=== PATIENT | female | born 1960 | race Caucasian/White ===

== ENCOUNTER 2019-01-14 10:14 | Inpatient (IN) ==
--- NOTE | 2018-12-13 14:03 | Anesthesiology Consultation ---
Date of Service December 13, 2018 Assessment & Plan (1) Encounter for pre-operative examination: Chart Review Chart Review: Acceptable Risk for Surgery and Patient seen in Pre Admission Testing Consults Requested none Teaching & Discussion Pre-Anesthesia Teaching/Discussion Notes: Instructed NPO after midnight before surgery, except medications with 15 cc of water. Medication instructions provided according to the PAT guidelines. History Surgery Operation Date: 01/14/19 13:30 Proposed Procedures p Left Total Knee Arthroplasty - Yossi Fraga DO Height/Weight Height: 5 ft 2 in Weight: 83.4 kg Allergies Allergy/AdvReac Type Severity Reaction Status Date / Time No Known Allergies Allergy Mild Verified 12/07/18 11:27 Medications Home Medications Medication Instructions Recorded Confirmed Last Taken citalopram [Celexa] 10 mg PO HS 06/28/18 12/07/18 06/30/18 18:00 folic acid 1 mg PO QPM 06/28/18 12/07/18 06/30/18 18:00 gabapentin 300 mg PO TID 06/28/18 12/07/18 06/30/18 13:00 hydrocodone-acetaminophen 1 - 2 tab PO Q6H PRN 06/28/18 12/07/18 06/30/18 13:00 lorazepam 1 mg PO Q6 PRN 06/28/18 12/07/18 06/29/18 magnesium hydroxide [Milk of 30 ml PO DAILY PRN 06/28/18 12/07/18 06/29/18 Magnesia] naproxen sodium [Aleve] 220 mg PO BID PRN 06/28/18 12/07/18 Unknown certolizumab pegol [Cimzia] 1 dose SUBCUT DIRECTED 12/07/18 12/07/18 Unknown Past Medical History Medical History Anxiety Chronic back pain with radiculopathy Degenerative disc disease Osteoarthritis Rheumatoid arthritis Sleep apnea CPAP Spinal stenosis Past Surgical History Surgical History History of appendectomy History of bilateral tubal ligation History of colonoscopy History of dilatation and curettage X2 History of esophagogastroduodenoscopy (EGD) History of lumbar fusion 02/28/16-- L4-L5 MAC #3, ETT #7.0 with Grade 1 view. History of meniscectomy of left knee History of tooth extraction WISDOM TEETH History of total abdominal hysterectomy and bilateral salpingo-oophorectomy Past Anesthesia History No Hx of Anesthesia Complications and No Family Hx of Anesthesia Complications History of PONV No Motion Sickness Screening History of Motion Sickness: No Social History Smoking Status: Current every day smoker tobacco type: cigarettes Smoking cigarettes per day: 1/2 ppd x 40 years Do You Dip or Chew Tobacco: No Hx Alcohol Use: No Hx Substance Use: No substance use type: does not use Exercise / Class Metabolic Activity II 4-5 Yardwork/Stairs/Walk up hill (Rides stationary bike 15 minutes and walks 10 minutes on treadmill every other day. Able to climb stairs one at a time. Denies CP or SOB. ) Review of Systems Patient denies chest pain, shortness of breath, dyspnea on exertion, reflux, cough, wheezing, palpitations. +Joint pain (knees) Physical Exam Vital Signs BP: 115/75 P: 59 R: 18 T: 98.6 SPO2: 97% on RA Constitutional + obese ENMT Thyromental Distance: > or= 3.5 Finger Breadths (4) Mallampati Class: II Neck normal visual inspection and trachea midline; neck extension not limited Respiratory normal respiratory effort Auscultation: lungs clear to auscultation bilaterally Cardiovascular Rate/Rhythm: regular rate and regular rhythm Heart Sounds: no murmur Vessels: no carotid bruit Neurologic moves all extremities Psychiatric Orientation: alert and oriented x 3 Testing Electrocardiogram Date: 06/16/18 Findings: + SB @ (58) When compared with ECG from 03/05/16, ventricular rate has decreased by 32 bpm. Chest X-Ray Date: 06/16/18 Findings: + NAD Stress Test Date: 11/04/17 Type: DSE Resting EF: 55-59% Stress echo is negative for inducible ischemia. Adequate and appropriate HR and BP response to the dobutamine/atropine stress protocol. Baseline EKG was essentially normal. The stress EKG response showed no evidence of ischemia. LV wall thickness is mildly increased (concentric). No significant valvular disease is present. Cervical Spine Date: 12/13/18 FINDINGS: The cervical spine is visualized from C1 through the superior endplate of T1. There is no fracture. No subluxation. Moderate degenerative disc change C5-C7. No evidence for positional subluxation. IMPRESSION: Degenerative change. No evidence for positional subluxation Laboratory Results 12/13/18 14:41 12/13/18 14:41 Blood Type A Positive 12/13/18 14:41 Antibody Screen NEGATIVE 12/13/18 14:41 PT 10.1 Seconds (9.0-12.0) 12/13/18 14:41 INR 1.0 (0.9-1.1) 12/13/18 14:41 APTT 26.1 Seconds (21.0-31.0) 12/13/18 14:41
--- NOTE | 2018-12-13 14:28 | PAT Medication Instructions ---
Medication Instructions Date of Service December 13, 2018 Home Medications citalopram [Celexa] 10 mg PO HS folic acid 1 mg PO QPM gabapentin 300 mg PO TID hydrocodone-acetaminophen 1 - 2 tab PO Q6H NEEDED lorazepam 1 mg PO Q6 NEEDED magnesium hydroxide [Milk of Magnesia] 30 ml PO DAILY NEEDED naproxen sodium [Aleve] 220 mg PO BID NEEDED certolizumab pegol [Cimzia] 1 dose SUBCUT DIRECTED ASK your surgeon for instructions naproxen sodium [Aleve] 220 mg PO BID NEEDED ASK your prescriber and surgeon certolizumab pegol [Cimzia] 1 dose SUBCUT DIRECTED DO NOT take the morning of surgery magnesium hydroxide [Milk of Magnesia] 30 ml PO DAILY NEEDED Take morning of surgery With a small sip of water, OTHERWISE NOTHING TO EAT OR DRINK AFTER MIDNIGHT: hydrocodone-acetaminophen 1 - 2 tab PO Q6H NEEDED (Stop 4 hours befre surgery) lorazepam 1 mg PO Q6 NEEDED gabapentin 300 mg PO TID Take evening before surgery magnesium hydroxide [Milk of Magnesia] 30 ml PO DAILY NEEDED hydrocodone-acetaminophen 1 - 2 tab PO Q6H NEEDED lorazepam 1 mg PO Q6 NEEDED folic acid 1 mg PO QPM gabapentin 300 mg PO TID citalopram [Celexa] 10 mg PO HS Other Notes If you have any questions please call us at [phone] or [phone] or [phone] or [phone]
--- NOTE | 2018-12-13 14:54 | XRay Report ---
XR cervical spine 2 or 3V HISTORY: Pain Lateral, Neutral, Flexion, extension) COMPARISON: None. FINDINGS: The cervical spine is visualized from C1 through the superior endplate of T1. There is no f racture. No subluxation. Moderate degenerative disc change C5-C7. No evidence for positional subluxa tion. IMPRESSION: Degenerative change. No evidence for positional subluxation The above report was generated using voice recognition software. It may contain grammatical, syntax or spelling errors. Electronically signed by: Jordan Parisi M.D. 12/13/2018 2:53 PM
[2018-12-13 16:12] LABS: Basophils # (auto) 0.04 K/uL (0-0.2); Basophils % (auto) 0.4 %; Eosinophils # (auto) 0.14 K/uL (0-0.5); Eosinophils % (auto) 1.5 %; Hematocrit (blood only) 38.2 % (37-47); Hemoglobin 12.7 g/dL (12.0-16.0); Immature Granulocytes # (auto) 0.02 K/uL (0.00-0.02); Immature Granulocytes % (auto) 0.2 %; Lymphocytes # (auto) 2.98 K/uL (1.2-3.4); Lymphocytes % (auto) 32.7 %; Mean Corpuscular Hgb Conc 33.2 g/dL (32-36); Mean Corpuscular Volume 99.5 fL (80-100); Monocytes # (auto) 0.89 K/uL (0.11-0.59); Monocytes % (auto) 9.8 %; Neutrophils # (auto) 5.04 K/uL (1.4-6.5); Neutrophils % (auto) 55.4 %; Platelet Count 293 K/uL (130-400); RDW Coefficient of Variation 13.3 % (11.5-14.5); RDW Standard Deviation 47.5 fL (36.4-46.3); Red Blood Count 3.84 M/uL (4.2-5.4); White Blood Count 9.11 K/uL (4.8-10.8)
[2018-12-13 16:14] LABS: BUN Creatinine Ratio 17.9 (10-20); Creatinine Clr Calc Pharmacy 71.5 ml/min; Est GFR (African American) 86.9; Potassium 4.3 mmol/L (3.5-5.1)
[2018-12-13 16:20] LABS: Partial Thromboplastin Time 26.1 Seconds (21.0-31.0); Prothrombin Time 10.1 Seconds (9.0-12.0)
--- NOTE | 2019-01-12 07:35 | History & Physical Report ---
Date of Service January 12, 2019 Assessment & Plan (1) Osteoarthritis of left knee: We will proceed with a left total knee arthroplasty. Postoperatively she will be started on aspirin for DVT prophylaxis. She will be kept overnight at the hospital for postoperative medical management. She plans to use [facility] physical therapy upon discharge. Present on Admission?: Yes History of Present Illness Chief Complaint: Primary osteoarthritis of the right knee Primary Care Provider: Willychristel Ashley Ybarra is a pleasant 58-year-old female who is been dealing with chronic increasing left knee pain. I did an arthroscopy of her left knee recently which showed extensive arthritis. Unfortunately she still having a lot of pain. She is failing conservative treatment. She has elected to proceed with a left total knee arthroplasty. Allergies Allergy/AdvReac Type Severity Reaction Status Date / Time No Known Allergies Allergy Mild Verified 12/07/18 11:27 Home Medications Home Medications Medication Instructions Recorded Confirmed Type citalopram [Celexa] 10 mg PO HS 06/28/18 12/07/18 History folic acid 1 mg PO QPM 06/28/18 12/07/18 History gabapentin 300 mg PO TID 06/28/18 12/07/18 History hydrocodone-acetaminophen 1 - 2 tab PO Q6H PRN 06/28/18 12/07/18 History lorazepam 1 mg PO Q6 PRN 06/28/18 12/07/18 History magnesium hydroxide [Milk of 30 ml PO DAILY PRN 06/28/18 12/07/18 History Magnesia] naproxen sodium [Aleve] 220 mg PO BID PRN 06/28/18 12/07/18 History certolizumab pegol [Cimzia] 1 dose SUBCUT DIRECTED 12/07/18 12/07/18 History Past Med/Surg History Medical History Anxiety Chronic back pain with radiculopathy Degenerative disc disease Osteoarthritis Rheumatoid arthritis Sleep apnea CPAP Spinal stenosis Surgical History History of appendectomy History of bilateral tubal ligation History of colonoscopy History of dilatation and curettage X2 History of esophagogastroduodenoscopy (EGD) History of lumbar fusion 02/28/16-- L4-L5 MAC #3, ETT #7.0 with Grade 1 view. History of meniscectomy of left knee History of tooth extraction WISDOM TEETH History of total abdominal hysterectomy and bilateral salpingo-oophorectomy Social History Preferred Language: Lao Communication Ability: Effective Beliefs That Will Affect Care: None Current Living Situation: Spouse Other Information That Helps Us Care for You: No Feels Safe at Home: Yes Safety Concerns: Feels Safe At This Time Smoking Status: Current every day smoker Hx Alcohol Use: No Hx Substance Use: No Review of Systems All systems reviewed & are unremarkable except as noted in HPI & below Physical Exam Constitutional: WD/WN, vitals as above Eyes: PERRL, conjunctivae normal, anicteric sclerae ENMT: external ear and nose normal, oropharynx normal Neck: trachea midline, no thyromegaly Respiratory: normal respiratory effort Cardiovascular: RRR, no murmur, no edema Gastrointestinal (Abdomen): normal bowel sounds, soft, nontender, no hepatosplenomegaly Musculoskeletal: On physical examination of the right knee there is a trace effusion. There is near full range of motion and no evidence of instability. There is significant tenderness palpation along the medial and lateral joint lines and over the distal femoral condyles. Psychiatric: A+Ox3, euthymic affect Results & Data Diagnostic Findings Radiographs of the right knee demonstrate advanced osteoarthritis with joint space narrowing osteophyte formation and ceng-hm-oayn articulation.
[~2019-01-14 10:14] MED LIST: ACETAMINOPHEN 500 MG TAB PO SCH; BUPIVACAINE 0.5 % 5 MG/1 ML PF 10ML VIAL ONE; CEFAZOLIN 2000MG 2,000 MG/15 ML SYR IV SCH; FAMOTIDINE 20 MG TAB PO SCH; GABAPENTIN 300 MG x 2 PO SCH; LR 500ML BOLUS, THEN 15ML/HR IV SCH; LR 60ML/HR IV SCH; ROPIVACAINE 0.5% 5 MG/ML 30 ML VIAL ONE; ROPIVACAINE 0.5% HCL/PF 150 MG, BUPIVACAINE 0.5% MPF 30 ML, EPINEPHrine 30MG/30ML (OR U... INFIL SCH; TRANEXAMIC ACID 1,000 MG **IV Intra-op IV SCH; TRANEXAMIC ACID 1,000 MG **IV Pre-op IV SCH
[2019-01-14] MEDS ORDERED: MIDAZOLAM HCL 1 MG/ML 2ML VIAL ONE ×2 (11:40)
[2019-01-14] MEDS ORDERED: fentaNYL citrate 100 MCG/2 ML VIAL ONE (11:44)
[2019-01-14] MEDS ORDERED: LIDOCAINE HCL 2% 2 ML VIAL/AMP(20MG/ML) INFIL ONE (11:47)
[2019-01-14] MEDS ORDERED: PROPOFOL IV EMULSION 10 MG/ML 20 ML VIAL IV ONE (11:48)
[2019-01-14] MEDS ORDERED: ONDANSETRON INJ 2 MG/ML 2 ML VIAL ONE (11:48)
--- NOTE | 2019-01-14 11:53 | History & Physical Bridge Note ---
Date of Service January 14, 2019 History & Physical Bridge Note I have examined the patient, reviewed the History & Physical and in the interval since the performance of the History & Physical I have noted the following changes of clinical significance: no changes noted
[2019-01-14] MEDS ORDERED: ORTHO JOINT ANESTHETIC ONE (12:16)
[2019-01-14] MEDS ORDERED: POVIDONE-IODINE OP SOLN 30 ML BTL ONE (12:16)
[2019-01-14] MEDS ORDERED: ONDANSETRON INJ 2 MG/ML 2 ML VIAL IV PRN ×2 (12:52→16:11)
[2019-01-14] MEDS ORDERED: PHENYLEPHRINE 100MCG/ML 5ML SYR IV PRN (12:52)
[2019-01-14] MEDS ORDERED: ATROPINE SULFATE 0.1 MG/ML 10ML SYR IV PRN (12:52)
[2019-01-14] MEDS ORDERED: ePHEDrine sulfate 50 MG/ML AMP IV PRN (12:52)
[2019-01-14] MEDS ORDERED: HYDROmorphone INJ 1 MG/ML SYRINGE IV PRN (12:52)
[2019-01-14] MEDS ORDERED: KETOROLAC 30 MG/ML VIAL IV PRN (12:52)
[2019-01-14] MEDS ORDERED: PHENYLEPHRINE 100MCG/ML 5ML SYR ONE (13:56)
[2019-01-14] MEDS ORDERED: ePHEDrine sulfate 50 MG/ML AMP ONE (13:56)
--- NOTE | 2019-01-14 14:40 | Operative Report ---
Post Operative Report Pre & Post Diagnosis Operation Date: 01/14/19 12:50 Pre-Op Diagnosis: Osteoarthritis of left knee Post-Op Diagnosis: Osteoarthritis of left knee Procedure Operation Date: 01/14/19 12:50 Actual Procedures p Left Total Knee Arthroplasty(Left) - Yossi Fraga DO Surgeon Yossi Fraga DO [employer] Mesh Yossi Higgins PAC Estimated Blood Loss 5 Findings Consistent with Post-Op Diagnosis Specimens Left femoral and tibial bone Complications none Disposition Disposition: Recovery Room Indications Amada is a pleasant 58-year-old female who presented to my office with chronic increasing left knee pain. I did a knee arthroscopy on her in the past and documented significant arthritis. After failing extensive conservative treatment, she elected to proceed with a left total knee arthroplasty. Description of Procedure Implants used: I used a [employer] total knee arthroplasty system with a size 60 femur, 63 tibia, 28 patella, and a size 10 PS polyethylene bearing. All components were cemented in place with Palacos G cement. The patient arrived [facility] for the above procedure. There were seen in the preoperative holding area and the operative extremity was identified and signed. There were given a preoperative antibiotic, a spinal anesthetic and an adductor nerve block. There were taken back to the operating room and laid on the table in supine position. There were given basic sedation. The operative knee was then prepped and draped in sterile fashion. A timeout was done, and the patient and the operative extremity was properly identified. A midline incision was made directly over the patella. Dissection was taken down to the extensor mechanism. A subvastus arthrotomy was used. The medial retinaculum was released and the fat pad was mostly left intact. The knee was flexed and the ACL, PCL, and meniscus were removed. A drill was sent down the center of the femoral canal followed by an intramedullary anneliese. Off that anneliese a distal femoral cutting block was placed. 9 mm was resected off the distal femur at 5 of valgus. A posterior referencing AP sizing guide was then placed on the distal femur. The femur measured to be a size 60. 2 drill holes were placed in 3 of external rotation. A 4-in-1 cutting block was then impacted into place. Anterior posterior and chamfer cuts were then made. The posterior stabilizing box guide was then impacted into place and the box was resected for the posterior stabilizing component. The proximal tibia was then exposed. A drill was sent down the center of the tibial canal followed by an intramedullary anneliese. Off that anneliese a proximal tibial resection guide was placed. The proximal tibia was then resected. The tibia measured to be a size 63. The tibial plate was then placed in the appropriate rotation and the tibia was punched. The posterior aspect of the knee was then opened up and any additional meniscus fragments and osteophytes were removed. Trial components were then placed. I used a size 10 PS polyethylene insert. The knee was brought through a full range of motion and felt to be stable. The patella was then everted and 8 mm was resected off the posterior aspect of the patella. The patella measured to be a size 28. 3 peg holes were then drilled. A trial patella was placed. The knee was once again brought through a full range of motion and felt to be stable. Trial components were then removed. The surrounding soft tissues were injected with 100 cc of an orthopedic pain control cocktail. All components were then cemented into place with Palacos G cement. The final polyethylene insert was then snapped into place and the anterior bar was locked. Once cement was dry the tourniquet was deflated. Hemostasis was obtained. A dilute betadyne lavage was then done for 3 minutes. The joint was then irrigated with normal saline solution. The subvastus arthrotomy was then closed with #1 Vicryl suture. The skin was closed with 2-0 Vicryl, 3-0V lock suture, and koby. A soft compressive dressing was placed. The patient was then transferred to a hospital bed and taken to the postanesthesia care unit in stable condition. They tolerated the procedure well. I attest to the content of the Intraoperative Record and any orders documented therein. Any exceptions are noted below.
--- NOTE | 2019-01-14 15:18 | XRay Report ---
TWO VIEWS LEFT KNEE CLINICAL HISTORY: Postoperative examination. FINDINGS: AP and crosstable lateral portable views of the left knee are obtained. A left knee arthrop lasty is in near anatomic alignment. There has been undersurface remodeling of the patella. No acute fracture is seen. There are expected postoperative changes around the knee including skin clips, soft tissue edema, and subcutaneous gas. IMPRESSION: Expected postoperative changes status post left knee arthroplasty. No acute fracture is s een. Electronically signed by: Sebas Blair M.D. 01/14/2019 3:17 PM
--- NOTE | 2019-01-14 15:35 | Anesthesiology Progress Note ---
Date of Service January 14, 2019 Anesthesia Post Procedure Vital Signs Vital Signs: Temp Pulse Pulse Resp BP Pulse Ox 01/14/19 15:04 36.2 C L 74 20 101/64 94 01/14/19 11:01 36.9 C 61 20 104/61 94 Pain Intensity Left Knee: Pain Intensity: 0 Notes Mental Status: alert / awake / arousable Patient Amnestic to Procedure: Yes Nausea / Vomiting: adequately controlled Pain: adequately controlled Airway Patency, RR, SpO2: stable & adequate BP & HR: stable & adequate Hydration State: stable & adequate Anesthetic Complications: no major complications apparent and Pt Satisfied with anesthetic care
[2019-01-14] MEDS ORDERED: LORazepam 1 MG TAB PO PRN (16:11)
[2019-01-14] MEDS ORDERED: NALOXONE HCL 0.4 MG/1 ML VIAL/CARP IV PRN (16:11)
[2019-01-14] MEDS ORDERED: CERTOLIZUMAB PEGOL SQ SCH (16:11)
[2019-01-14] MEDS ORDERED: METOCLOPRAMIDE HCL INJ 5 MG/ML 2 ML VIAL IV PRN (16:11)
[2019-01-14] MEDS ORDERED: HYDROmorphone INJ 0.5 MG/0.5 ML SYR IV PRN (16:11)
[2019-01-14] MEDS ORDERED: BISACODYL 10 MG SUPP PR PRN (16:11)
[2019-01-14] MEDS ORDERED: SODIUM CHLORIDE 0.9% 1000ML 1,000 ML IV SCH (16:11)
[2019-01-14] MEDS ORDERED: MAGNESIUM HYDROXIDE SUSP 30 ML UDC PO PRN ×2 (16:11)
[2019-01-14] MEDS: KETOROLAC 30 MG/ML VIAL IV SCH ×2 (17:07→22:36)
[2019-01-14] MEDS: OXYCODONE HCL IR 5 MG TAB (IMMEDIATE RELEASE) PO PRN (19:54)
[2019-01-14] MEDS ORDERED: CITALOPRAM 20 MG TAB PO SCH (21:00)
[2019-01-14] MEDS ORDERED: SENNA 8.6 MG TAB PO SCH (21:00)
[2019-01-14] MEDS ORDERED: FOLIC ACID 1 MG TAB PO SCH (21:00)
[2019-01-14] MEDS: CEFAZOLIN 2000MG 2,000 MG/15 ML SYR IV SCH (21:16)
[2019-01-14] MEDS: ASPIRIN 81 MG ECTAB PO SCH (21:17)
[2019-01-14] MEDS: DOCUSATE SODIUM 100 MG CAP PO SCH (21:17)
[2019-01-14] MEDS: GABAPENTIN 300 MG CAP PO SCH (21:17)
[2019-01-14] MEDS: ACETAMINOPHEN 500 MG TAB PO SCH (21:18)
[2019-01-15] MEDS: KETOROLAC 30 MG/ML VIAL IV SCH (05:34)
[2019-01-15] MEDS: CEFAZOLIN 2000MG 2,000 MG/15 ML SYR IV SCH (05:35)
[2019-01-15] MEDS: ACETAMINOPHEN 500 MG TAB PO SCH (05:35)
[2019-01-15 06:10] LABS: Hemoglobin 11.8 g/dL (12.0-16.0); Mean Corpuscular Hgb Conc 33.7 g/dL (32-36); Mean Corpuscular Volume 97.5 fL (80-100); Mean Platelet Volume 8.9 fL (7.4-10.4); Platelet Count 254 K/uL (130-400); RDW Standard Deviation 46.3 fL (36.4-46.3); Red Blood Count 3.59 M/uL (4.2-5.4); White Blood Count 18.99 K/uL (4.8-10.8)
[2019-01-15 06:38] LABS: Calcium 8.9 mg/dl (8.5-10.1); Creatinine Clr Calc Pharmacy 68.9 ml/min; Est GFR (African American) 83.4; Est GFR (Non-African American) 71.9; Potassium 4.8 mmol/L (3.5-5.1)
--- NOTE | 2019-01-15 08:20 | Orthopedic Progress Note ---
Date of Service January 15, 2019 Assessment & Plan (1) Osteoarthritis of left knee: Overall she is doing very well. She is not having much pain in the knee. She will be seen this morning by physical therapy for ambulation. She is on oxycodone for pain control. She is on aspirin for DVT prophylaxis. She can be discharged home later this morning with [facility] therapy. She will follow-up with orthopedics in 2 weeks. Present on Admission?: Yes Subjective Amada was seen and examined at bedside this morning. Overall she is doing very well. She is not having much pain in the knee. She is already been up and ambulating. She has no complaints. Physical Exam Vital Signs (Past 24 Hours): Last Vital Signs Temp 36.6 C 01/15/19 02:58 Pulse 54 L 01/15/19 02:58 Resp 16 01/15/19 02:58 BP 100/64 01/15/19 02:58 Pulse Ox 98 01/15/19 02:58 Musculoskeletal: On physical examination of the left knee, the dressing is clean and dry. Her leg lengths are equal. She is active dorsiflexion plantarflexion of her left ankle. Sensation is intact. Results & Data Laboratory Results H & H 12/13/18 01/15/19 Range/Units 14:41 05:29 Hgb 12.7 11.8 L (12.0-16.0) g/dL Hct 38.2 35.0 L (37-47) % Coagulation 12/13/18 Range/Units 14:41 INR 1.0 (0.9-1.1) Diagnostic Findings Postoperative x-rays of the left knee show the prosthesis to be in anatomic alignment without any evidence of fracture dislocation or loosening
--- NOTE | 2019-01-15 08:22 | Discharge Summary ---
Date of Service January 15, 2019 Admission HPI Per Admitting Provider Amada is a pleasant 58-year-old female who is been dealing with chronic increasing left knee pain. I did an arthroscopy of her left knee recently which showed extensive arthritis. Unfortunately she still having a lot of pain. She is failing conservative treatment. She has elected to proceed with a left total knee arthroplasty. Specialty Data Orthopedic H & H 12/13/18 01/15/19 Range/Units 14:41 05:29 Hgb 12.7 11.8 L (12.0-16.0) g/dL Hct 38.2 35.0 L (37-47) % Coagulation 12/13/18 Range/Units 14:41 INR 1.0 (0.9-1.1) Discharge Data Consultations 01/14/19 16:11 Consult Case Management - Discharge Planning Routine Procedures Performed Operation Date: 01/14/19 12:50 Actual Procedures p Left Total Knee Arthroplasty(Left) - Yossi Fraga DO Hospital Course (1) Osteoarthritis of left knee: On January 14, 2019 Amada arrived at [facility] and underwent a left total knee arthroplasty without complication. She had a spinal anesthetic and a left abductor nerve block. Postoperatively she was started on aspirin for DVT prophylaxis and discharged to general orthopedic floors. Her hospital course is uneventful. On postop day #1 her H&H was stable and her pain was well controlled. She was able to participate well with physical therapy. She was then discharged to home with [facility]. She will follow-up with orthopedics in 2 weeks. Discharge Instructions Home Medications Medication Instructions Recorded Confirmed citalopram [Celexa] 10 mg PO HS 06/28/18 01/14/19 folic acid 1 mg PO QPM 06/28/18 01/14/19 gabapentin 300 mg PO TID 06/28/18 01/14/19 hydrocodone-acetaminophen 1 - 2 tab PO Q6H PRN 06/28/18 01/14/19 lorazepam 1 mg PO Q6 PRN 06/28/18 01/14/19 magnesium hydroxide [Milk of 30 ml PO DAILY PRN 06/28/18 01/14/19 Magnesia] naproxen sodium [Aleve] 220 mg PO BID PRN 06/28/18 01/14/19 certolizumab pegol [Cimzia] 1 dose SUBCUT DIRECTED 12/07/18 01/14/19 Previous Rx's Medication Instructions Recorded aspirin [Ecotrin Low Strength] 81 mg PO BID #84 tab 01/15/19 oxycodone 5 - 10 mg PO Q4H PRN #40 tab 01/15/19
[2019-01-15] MEDS ORDERED: MULTIVITAMIN TAB PO SCH (09:00)
[2019-01-15] MEDS: OXYCODONE HCL IR 5 MG TAB (IMMEDIATE RELEASE) PO PRN (09:22)
[2019-01-15] MEDS: ASPIRIN 81 MG ECTAB PO SCH (09:23)
[2019-01-15] MEDS: DOCUSATE SODIUM 100 MG CAP PO SCH (09:23)
[2019-01-15] MEDS: GABAPENTIN 300 MG CAP PO SCH (09:24)
--- NOTE | 2019-01-15 12:56 | Anesthesiology Progress Note ---
Date of Service January 15, 2019 Anesthesia Post Procedure Vital Signs Vital Signs: Temp Pulse Pulse Pulse Resp BP BP 01/15/19 10:40 01/15/19 09:58 36.4 C L 63 18 105/74 01/15/19 08:15 36.4 C L 63 18 105/74 01/15/19 02:58 36.6 C 54 L 16 01/14/19 22:50 36.5 C 65 16 103/66 01/14/19 19:10 36.9 C 85 16 01/14/19 18:06 37.3 C 85 16 01/14/19 17:02 36.4 C L 85 16 01/14/19 16:30 36.8 C 82 20 01/14/19 16:00 36.7 C 73 18 01/14/19 15:45 74 22 102/53 L 01/14/19 15:41 78 23 111/64 01/14/19 15:40 76 22 01/14/19 15:39 36.8 C 01/14/19 15:35 78 22 111/64 01/14/19 15:30 71 20 102/57 L 01/14/19 15:25 75 13 102/61 01/14/19 15:20 78 19 102/60 01/14/19 15:15 75 21 106/62 01/14/19 15:10 81 16 103/58 L 01/14/19 15:05 69 15 100/59 L 01/14/19 15:04 36.2 C L 76 74 22 101/64 BP Pulse Ox 01/15/19 10:40 97 01/15/19 09:58 100/64 94 01/15/19 08:15 94 01/15/19 02:58 100/64 98 01/14/19 22:50 92/53 L 97 01/14/19 19:10 108/67 96 01/14/19 18:06 107/66 95 01/14/19 17:02 107/66 92 01/14/19 16:30 111/72 94 01/14/19 16:00 100/63 95 01/14/19 15:45 96 01/14/19 15:41 96 01/14/19 15:40 96 01/14/19 15:39 97 01/14/19 15:35 95 01/14/19 15:30 96 01/14/19 15:25 96 01/14/19 15:20 96 01/14/19 15:15 94 01/14/19 15:10 91 01/14/19 15:05 95 01/14/19 15:04 101/64 91 Pain Intensity Left Knee: Pain Intensity: 3 Notes Mental Status: alert / awake / arousable and participated in evaluation Patient Amnestic to Procedure: Yes Nausea / Vomiting: adequately controlled Pain: adequately controlled Airway Patency, RR, SpO2: stable & adequate BP & HR: stable & adequate Hydration State: stable & adequate Neuraxial Anesthesia: was administered and sensory block resolved Anesthetic Complications: no major complications apparent and Pt Satisfied with anesthetic care
--- OUTSIDE RECORDS SUMMARY | 2019-01-31 13:48 | External Medical Summary | Continuity of Care Document ---
:1960 Author Name Hannah Alvarado, Provider Address Unavailable Unavailable , Care Team Providers Name Role Phone Unavailable Unavailable Unavailable JANETH MARCOS Unavailable Unavailable Unavailable Unavailable Unavailable Problems S/P total knee arthroplasty (V43.65) (Z96.659) Lumbosacral radiculopathy (724.4) (M54.17) Cough (786.2) (R05) Pulmonary nodule (793.11) (R91.1) Obstructive sleep apnea (327.23) (G47.33) Pneumonia (486) (J18.9) Moderate obstructive sleep apnea (327.23) (G47.33) Snoring (786.09) (R06.83) Dyslipidemia (272.4) (E78.5) Vitamin D deficiency (268.9) (E55.9) Arthritis, rheumatoid (714.0) (M06.9) Non-toxic uninodular goiter (241.0) (E04.1) Myositis (729.1) (M60.9) Myalgia (729.1) (M79.10) Statin intolerance (995.27) (Z78.9) Obesity (278.00) (E66.9) Dyslipidemia (272.4) (E78.5) Tobacco use (305.1) (Z72.0) Allergies and Adverse Reactions No Known Drug Allergies (Allergy) Medications Aspirin 81 MG Oral Tablet Delayed Release; TAKE 1 TABLET TWI CE DAILY. , M.D. Refills: 0 ALPRAZolam 0.5 MG Oral Tablet; TAKE 1 TABLET 3 TIMES DAILY A S NEEDED. , M.D. Refills: 0 Benzonatate 100 MG Oral Capsule; TAKE 1 TO 2 CAPSULES 3 TIMES A DAILY NEEDED , M.D. Refills: 0 Vitamin D 49654 UNIT CAPS; TAKE 1 CAPSULE WEEKLY. , M.D. Refills: 0 Oscal 500/200 D-3 500-200 MG-UNIT Oral Tablet; TAKE 1 TABLET twice daily , M.D. Refills: 0 Methotrexate 2.5 MG Oral Tablet; TAKE 7 TABLETS PER WEEK. , M.D. Refills: 0 Folic Acid 1 MG Oral Tablet; TAKE TABLET daily , M.D. Refills: 0 Procedures History of knee replacement Status: Comp leted 14-Jan-2019 0:00 Immunizations Immunizations not documented Social History - Smoking Status Current every day smoker Plan of Treatment Planned Observations Planned Goals not documented Results No Known Results Results not documented Encounters Appointment; Remedios Vasquez III, M.D. 23-Apr-2017 16:00 Encounter Diagnosis: Problem not documented
== END 2019-01-15 10:55 | disposition home or self-care (01) | DRG 470 ==
LOC: ASU 10:14 → 3E 15:06

== ENCOUNTER 2022-07-23 08:11 | Inpatient (IN) ==
--- NOTE | 2022-07-23 08:42 | Emergency Department Note ---
History of Present Illness General Chief complaint: Back Injury/Pain Stated complaint: BACK PAIN Time Seen by Provider: 07/23/22 08:42 Source: patient, family ( who is at the bedside) and old records reviewed (I have reviewed the records from EMS) Mode of arrival: ambulatory Limitations: no limitations History of Present Illness Maximum Pain Intensity: 9 This patient is 61-year-old female has history of chronic back issues, comes in complaining of back pain. This started since yesterday and she says this feels different than her typical back pain that sharp and it starts in her low back on the right side and wraps around into her groin and down her leg. It hurts significantly she tries to stand and she says is excruciating she cannot get up and go to the bathroom. No injury or overuse. She does use a TENS unit hydrocodone and Lyrica normally for her pain at home. She is followed by the pain clinic and Dr. Mejia gave her an injection last in June. She is done nothing that she knows of to aggravate her back. She did have back surgery 2015 and has had some nerve damage since then where she gets intermittent numbness weakness but nothing new lately. Denies dysuria hematuria no change in bowel or bladder function or incontinence. No blood or melena in her stool. No fever or chills. She does have chronic constipation. No abdominal pain no chest pain or shortness of breath. no sick contacts or exposure to COVID. no cough. Home Medications Medication Instructions Recorded Confirmed Type lorazepam 1 mg tablet 1 mg PO Q6H PRN Anxiety 06/28/18 07/03/22 History magnesium hydroxide 400 mg/5 mL 30 ml PO DAILY PRN Stomach Upset 06/28/18 07/03/22 History oral suspension (Milk of Magnesia) celecoxib 200 mg capsule (Celebrex) 200 mg PO DAILY PRN Pain 11/02/19 07/03/22 History cholecalciferol (vit D3) 5,500 1 tab PO QAM 07/17/21 07/03/22 History unit-vit K2 200 mcg tablet cyanocobalamin (vitamin B-12) 1,000 mcg PO QAM 07/17/21 07/03/22 History 1,000 mcg tablet (Vitamin B-12) pregabalin 100 mg capsule (Lyrica) 100 mg PO TID 07/17/21 07/03/22 History upadacitinib 15 mg tablet,extended 15 mg PO HS 07/17/21 07/03/22 History release 24 hr (Rinvoq) zinc 50 mg tablet 50 mg PO QAM 07/17/21 07/03/22 History hydrocodone 10 mg-acetaminophen 1 tab PO Q6H PRN 12/16/21 07/03/22 History 325 mg tablet albuterol sulfate 90 mcg/actuation 2 puff inhalation QID PRN 03/18/22 07/03/22 History aerosol inhaler fluticasone propionate 50 2 spray intranasal DAILY 03/18/22 07/03/22 History mcg/actuation nasal spray,suspension (Allergy Relief (fluticasone)) semaglutide 1 mg/dose (4 mg/3 mL) 1 mg (0.75 mL) subcut WK 4 weeks 07/03/22 07/03/22 Rx subcutaneous pen injector (Ozempic) #21 mL Allergies Allergy/AdvReac Type Severity Reaction Status Date / Time No Known Allergies Allergy Mild Verified 07/03/22 14:11 Past Med/Surg History Medical History (Updated 07/23/22 @ 15:11 by Yossi Terry MD) Anxiety Chronic back pain with radiculopathy Degenerative disc disease DM2 (diabetes mellitus, type 2) History of COVID-19 Dx Spring 2019 > symptoms at time of sinus headache, loss of taste and smell > symptoms resolved Obesity Osteoarthritis Rheumatoid arthritis Sleep apnea CPAP (compliant) Spinal stenosis Surgical History History of appendectomy History of bilateral tubal ligation History of colonoscopy History of dilatation and curettage X2 History of esophagogastroduodenoscopy (EGD) History of lumbar fusion L4-L5 (02/28/16): MAC #3, ETT #7.0 with Grade 1 view History of meniscectomy of left knee History of tooth extraction WTE History of total abdominal hysterectomy and bilateral salpingo-oophorectomy History of total left knee replacement Left TKA (01/14/19): SAB + PNB at [facility] Family History Grandmother Family history of diabetes mellitus PATERNAL Grandfather Family hx of colon cancer PATERNAL Grandfather (Paternal) Colorectal cancer Father Myocardial infarction Denies family history of Ovarian cancer Prostate cancer Breast cancer Social History Smoking Status: Current every day smoker Tobacco Type: Cigarettes Age Started Using Tobacco: 15; packs per day: 0; Cigarettes Per Day: 5-10; Second Hand Exposure: Yes (self); Hx Alcohol Use: No Hx Substance Use: No Preferred Language: Maori Communication Ability: Effective Visual Impairment: No Limitations Hearing Ability: Normal Rental Car Deliverer Required: No Beliefs That Will Affect Care: None marital status: Current Living Situation: Spouse current occupational status: retired How many Children do You have: 2 Feels Safe at Home: Yes Childhood Exposure to Second-Hand Smoke: Yes Dental Care, Regularly: Yes Physical Activity Frequency: Does not Exercise Seatbelt Use: always Sunscreen Use: Yes Assistive Devices: CPAP, Glasses and Walker Review of Systems A total of 10 systems reviewed and were otherwise negative Physical Exam Vital Signs Vital Signs - 24 hr 07/23/22 08:17 07/23/22 08:17 07/23/22 09:47 Temperature 37.1 C Temperature Source Oral Pulse Rate 73 66 Pulse Rate [Apical] 67 Pulse Rate from SpO2 Sensor Pulse Rhythm Regular Pulse Rhythm [Apical] Pulse Strength Normal Pulse Strength [Apical] Respiratory Rate 18 16 20 Respiratory Effort / Characteristics Non-Labored Respiratory Depth Normal Respiratory Pattern Regular Blood Pressure 146/88 H Blood Pressure [Left Arm] 146/88 H Blood Pressure Mean 107 Blood Pressure Mean [Left Arm] 107 Blood Pressure Position Lying Blood Pressure Position [Left Arm] Lying Pulse Oximetry 91 90 91 Oxygen Delivery Method Room Air Room Air Room Air Oxygen Flow Rate Sepsis Recent Fever Within 48 Hours No Sepsis New/Unexplained Change in Mental Status N/A Sepsis Action Taken by Nursing No Action Required 07/23/22 08:19 07/23/22 08:30 07/23/22 08:30 Temperature Temperature Source Pulse Rate 72 67 Pulse Rate [Apical] Pulse Rate from SpO2 Sensor 72 67 Pulse Rhythm Pulse Rhythm [Apical] Pulse Strength Pulse Strength [Apical] Respiratory Rate 19 21 Respiratory Effort / Characteristics Respiratory Depth Respiratory Pattern Blood Pressure 145/80 H Blood Pressure [Left Arm] Blood Pressure Mean 101 Blood Pressure Mean [Left Arm] Blood Pressure Position Blood Pressure Position [Left Arm] Pulse Oximetry 90 96 Oxygen Delivery Method Oxygen Flow Rate Sepsis Recent Fever Within 48 Hours Sepsis New/Unexplained Change in Mental Status Sepsis Action Taken by Nursing 07/23/22 09:00 07/23/22 09:01 07/23/22 09:01 Temperature Temperature Source Pulse Rate 72 69 Pulse Rate [Apical] Pulse Rate from SpO2 Sensor 73 71 Pulse Rhythm Pulse Rhythm [Apical] Pulse Strength Pulse Strength [Apical] Respiratory Rate 24 17 Respiratory Effort / Characteristics Respiratory Depth Respiratory Pattern Blood Pressure 162/105 H Blood Pressure [Left Arm] Blood Pressure Mean 124 Blood Pressure Mean [Left Arm] Blood Pressure Position Blood Pressure Position [Left Arm] Pulse Oximetry 96 96 Oxygen Delivery Method Oxygen Flow Rate Sepsis Recent Fever Within 48 Hours Sepsis New/Unexplained Change in Mental Status Sepsis Action Taken by Nursing 07/23/22 09:30 07/23/22 09:30 07/23/22 10:00 Temperature Temperature Source Pulse Rate 69 Pulse Rate [Apical] Pulse Rate from SpO2 Sensor 67 Pulse Rhythm Pulse Rhythm [Apical] Pulse Strength Pulse Strength [Apical] Respiratory Rate 21 Respiratory Effort / Characteristics Respiratory Depth Respiratory Pattern Blood Pressure 145/93 H 128/70 Blood Pressure [Left Arm] Blood Pressure Mean 110 89 Blood Pressure Mean [Left Arm] Blood Pressure Position Blood Pressure Position [Left Arm] Pulse Oximetry 98 Oxygen Delivery Method Oxygen Flow Rate Sepsis Recent Fever Within 48 Hours Sepsis New/Unexplained Change in Mental Status Sepsis Action Taken by Nursing 07/23/22 10:00 07/23/22 10:30 07/23/22 10:30 Temperature Temperature Source Pulse Rate 61 73 Pulse Rate [Apical] Pulse Rate from SpO2 Sensor 61 70 Pulse Rhythm Pulse Rhythm [Apical] Pulse Strength Pulse Strength [Apical] Respiratory Rate 16 14 Respiratory Effort / Characteristics Respiratory Depth Respiratory Pattern Blood Pressure 121/73 Blood Pressure [Left Arm] Blood Pressure Mean 89 Blood Pressure Mean [Left Arm] Blood Pressure Position Blood Pressure Position [Left Arm] Pulse Oximetry 98 96 Oxygen Delivery Method Oxygen Flow Rate Sepsis Recent Fever Within 48 Hours Sepsis New/Unexplained Change in Mental Status Sepsis Action Taken by Nursing 07/23/22 11:00 07/23/22 11:01 07/23/22 11:01 Temperature Temperature Source Pulse Rate 64 67 Pulse Rate [Apical] Pulse Rate from SpO2 Sensor 65 69 Pulse Rhythm Pulse Rhythm [Apical] Pulse Strength Pulse Strength [Apical] Respiratory Rate 12 12 Respiratory Effort / Characteristics Respiratory Depth Respiratory Pattern Blood Pressure 138/87 Blood Pressure [Left Arm] Blood Pressure Mean 104 Blood Pressure Mean [Left Arm] Blood Pressure Position Blood Pressure Position [Left Arm] Pulse Oximetry 96 95 Oxygen Delivery Method Nasal Cannula Nasal Cannula Oxygen Flow Rate 3 3 Sepsis Recent Fever Within 48 Hours Sepsis New/Unexplained Change in Mental Status Sepsis Action Taken by Nursing 07/23/22 12:13 07/23/22 12:28 07/23/22 12:28 Temperature Temperature Source Pulse Rate 67 Pulse Rate [Apical] Pulse Rate from SpO2 Sensor 70 66 Pulse Rhythm Pulse Rhythm [Apical] Pulse Strength Pulse Strength [Apical] Respiratory Rate 12 Respiratory Effort / Characteristics Respiratory Depth Respiratory Pattern Blood Pressure 133/78 Blood Pressure [Left Arm] Blood Pressure Mean 96 Blood Pressure Mean [Left Arm] Blood Pressure Position Blood Pressure Position [Left Arm] Pulse Oximetry 94 96 Oxygen Delivery Method Nasal Cannula Nasal Cannula Oxygen Flow Rate 3 3 Sepsis Recent Fever Within 48 Hours Sepsis New/Unexplained Change in Mental Status Sepsis Action Taken by Nursing 07/23/22 12:30 07/23/22 12:30 07/23/22 13:00 Temperature Temperature Source Pulse Rate 64 Pulse Rate [Apical] Pulse Rate from SpO2 Sensor Pulse Rhythm Pulse Rhythm [Apical] Pulse Strength Pulse Strength [Apical] Respiratory Rate 15 Respiratory Effort / Characteristics Respiratory Depth Respiratory Pattern Blood Pressure 130/72 133/62 Blood Pressure [Left Arm] Blood Pressure Mean 91 85 Blood Pressure Mean [Left Arm] Blood Pressure Position Blood Pressure Position [Left Arm] Pulse Oximetry Oxygen Delivery Method Oxygen Flow Rate Sepsis Recent Fever Within 48 Hours Sepsis New/Unexplained Change in Mental Status Sepsis Action Taken by Nursing 07/23/22 13:00 07/23/22 14:00 Temperature Temperature Source Pulse Rate 63 Pulse Rate [Apical] 72 Pulse Rate from SpO2 Sensor Pulse Rhythm Pulse Rhythm [Apical] Regular Pulse Strength Pulse Strength [Apical] Normal Respiratory Rate 14 17 Respiratory Effort / Characteristics Non-Labored Respiratory Depth Normal Respiratory Pattern Regular Blood Pressure Blood Pressure [Left Arm] 145/85 H Blood Pressure Mean Blood Pressure Mean [Left Arm] 105 Blood Pressure Position Blood Pressure Position [Left Arm] Pulse Oximetry 94 97 Oxygen Delivery Method Nasal Cannula Nasal Cannula Oxygen Flow Rate 3 3 Sepsis Recent Fever Within 48 Hours Sepsis New/Unexplained Change in Mental Status Sepsis Action Taken by Nursing General: Well developed well nourished middle-aged female who appears in significant discomfort with moving but otherwise in no acute distress, breathing comfortably on room air. Normal speech HEENT: Normal cephalic atraumatic. Sclera anicteric. Pupils are equal round a nd reactive to light. Extraocular movements are intact. Oropharynx is pink with moist mucous membranes. No swelling of the mouth lips or tongue. Neck: Supple with a midline trachea. No meningeal signs or stiffness, no JVD or bruits. No Stridor. Chest: Clear to auscultation bilaterally. No wheezes or rhonchi. No increased work of breathing. Heart: Regular rate and rhythm without murmurs or gallops. Abdomen: Soft nontender, nondistended without rebound guarding or rigidity. Extremities: No cyanosis clubbing or edema. No calf tenderness or assymetry Spine/Back. Non tender to palpation. No CVA tenderness Skin: Good turgor without rashes. Neurologic exam: Cranial nerves two through 12 are intact. Motor and sensation are intact and symmetrical throughout. Course Administered Medications Discontinued Medications Hydromorphone HCl (Hydromorphone Inj 1 Mg/Ml Syringe) 1 mg IV NOW STA Stop: 07/23/22 09:05 Last Admin: 07/23/22 09:14 Dose: 1 mg Documented By: NEDA Hydromorphone HCl (Hydromorphone Inj 0.5 Mg/0.5 Ml Syr) 0.5 mg IV NOW STA Stop: 07/23/22 09:55 Last Admin: 07/23/22 09:59 Dose: 0.5 mg Documented By: NEDA Hydromorphone HCl (Hydromorphone Inj 0.5 Mg/0.5 Ml Syr) 0.5 mg IV NOW STA Stop: 07/23/22 13:42 Last Admin: 07/23/22 14:11 Dose: 0.5 mg Documented By: NEDA Acetaminophen (Ofirmev) 1,000 mg in 100 mls @ 400 mls/hr IV NOW STA Stop: 07/23/22 10:14 Last Infusion: 07/23/22 10:36 Dose: 0 mls/hr Documented By: Admin: 07/23/22 10:11 Dose: 400 mls/hr Documented By: NEDA Methylprednisolone (Methylprednisolone 125 Mg/2 Ml Vial) 125 mg IV NOW STA Stop: 07/23/22 13:39 Last Admin: 07/23/22 14:11 Dose: 125 mg Documented By: NEDA Medical Decision Making Differential Diagnosis Lumbar disc disease, acute exacerbation chronic back pain, diverticulitis, kidney stone, appendicitis, UTI, cauda equina syndrome, infection, DJD Medical Records Attestation: I reviewed the patient's medical records. Home Medications Current Medication List: was personally reviewed by me Laboratory Data Attestation: I reviewed the patient's lab results. Result diagrams: 07/23/22 08:29 07/23/22 08:29 Lab Results 07/23/22 07/23/22 07/23/22 Range/Units 08:29 08:29 14:10 WBC 13.85 H (4.8-10.8) K/ul RBC 4.55 (3.93-5.22) M/uL Hgb 14.5 (12.0-16.0) g/dl Hct 43.1 (34.1-44.9) % MCV 94.7 (80.0-100.0) fL MCH 31.9 (25.0-34.0) pg MCHC 33.6 (32.0-36.0) g/dL RDW Std Deviation 46.7 H (36.4-46.3) fL RDW Coeff of Venu 13.3 (11.5-14.5) % Plt Count 305 (130-400) K/uL MPV 9.0 L (9.4-12.3) fL Immature Gran % (Auto) 0.6 % Neut % (Auto) 87.5 % Lymph % (Auto) 7.9 % Mcdonough % (Auto) 3.5 % Eos % (Auto) 0.1 % Baso % (Auto) 0.4 % Neut # (Auto) 12.11 H (1.4-6.5) K/uL Lymph # (Auto) 1.10 L (1.2-3.4) K/uL Mcdonough # (Auto) 0.49 (0.24-0.82) K/uL Eos # (Auto) 0.01 (0-0.50) K/uL Baso # (Auto) 0.05 (0-0.2) K/uL Immature Gran # (Auto) 0.09 H (0.00-0.02) K/uL Sodium 139 (136-145) mmol/L Potassium 4.0 (3.5-5.1) mmol/L Chloride 106 (98-107) mmol/L Carbon Dioxide 25 (21-32) mmol/L Anion Gap 8 (3-11) BUN 12 (6-23) mg/dl Creatinine 0.78 (0.6-1.2) mg/dl Est Cr Clr Drug Dosing 79.1 ml/min Est GFR ( Amer) 94.4 ml/min Est GFR (Non-Af Amer) 81.5 ml/min BUN/Creatinine Ratio 15.4 (10-20) Glucose 95 (70-99(Fasting)) mg/dl Calcium 9.5 (8.5-10.1) mg/dl Total Bilirubin 0.6 (0.2-1.0) mg/dl AST 18 (13-39) U/L ALT 15 (7-52) U/L Alkaline Phosphatase 91 (34-104) U/L Total Protein 7.0 (6.0-8.3) gm/dl Albumin 3.8 (3.4-5.0) gm/dl Globulin 3.2 (2.5-4.0) gm/dl Albumin/Globulin Ratio 1.2 (0.9-2) Lipase 34 (11-82) U/L SARS-CoV-2, RNA, NAAT NEGATIVE (NEGATIVE) Imaging Data Attestation: I personally reviewed and interpreted this imaging study as follows: My Impression: Chest x-rayno acute infiltrate, failure, pneumothorax seen Radiologist's Impression: Abdomen/Pelvis CT 07/23/22 09:02 CT SCAN OF THE ABDOMEN AND PELVIS WITHOUT IV CONTRAST CLINICAL HISTORY: Right flank pain. COMPARISON STUDY: Abdominal ultrasound dated 05/27/2012. TECHNIQUE: CT scan of the abdomen and pelvis is performed from the lung bases to the proximal femora. Images are reviewed in the axial, sagittal, and coronal planes. IV contrast was not administered for this examination. A dose lowering technique was utilized adhering to the principles of ALARA. CT DOSE: 828.59 mGy.cm FINDINGS: Lung bases: The heart is normal in size and without pericardial effusion. There are coronary artery calcifications. Emphysematous change is suspected. The lung bases are clear noting dependent scarring/atelectasis. There is a small hiatal hernia. Liver: The unenhanced liver is enlarged, measuring 18.8 cm in length. The liver demonstrates diminished attenuation indicating steatosis. Fatty sparing is seen adjacent to the gallbladder fossa. There is no intrahepatic biliary ductal dilatation. Gallbladder: Unremarkable. Spleen: Normal in size and attenuation. Pancreas: Unremarkable. Adrenal glands: Unremarkable. Kidneys: The unenhanced kidneys demonstrate mild cortical atrophy and are without hydronephrosis. There are no renal calculi identified. There is no evidence of contour deforming renal mass lesion. Abdominal vasculature: The abdominal aorta is normal in course and caliber noting advanced atherosclerotic calcification. Bowel: There is no bowel obstruction. The appendix is not identified. Peritoneum: There is no intraperitoneal free air or abdominal ascites. There is a small fat-containing umbilical hernia. Lymphadenopathy: None. Pelvic viscera: The bladder is markedly distended but otherwise normal in appearance. The uterus is surgically absent. No adnexal lesion is seen. Skeletal structures: The skeletal structures are osteopenic. There is postsurgical change from L4-L5 spinal fusion. No lytic or blastic lesions are seen. IMPRESSION: 1. No acute infectious or inflammatory findings are identified in the abdomen or pelvis. 2. There is marked bladder distention. Correlate clinically for evidence of outlet obstruction. 3. Hepatomegaly and mild steatosis. 4. Additional findings as above. ACT 112: Negative or not required by law. Electronically signed by: Sebas Blair M.D. 07/23/2022 9:57 AM Lumbar Spine MRI 07/23/22 09:02 MRI OF THE LUMBAR SPINE WITHOUT CONTRAST CLINICAL HISTORY: Low back pain. Right lower extremity radiculopathy. COMPARISON STUDY: Abdominal CT dated 07/23/2022. TECHNIQUE: MRI of lumbar spine is performed utilizing various T1 and T2-weighted sequences in the axial and sagittal planes. IV contrast was not imaged for this examination. FINDINGS: Lumbar spine: Vertebral body height and alignment are maintained throughout the lumbar spine. Small anterior and lateral marginal osteophytes are seen throughout. There is postoperative change from laminectomy and posterior fusion at L4-L5. Intrapedicular screws are in place. The transverse processes appear intact. There is no evidence of spondylolysis. No destructive bony lesion is seen. Chronic degenerative endplate changes noted at L4-L5. Intervertebral discs: There has been discectomy at L4-L5. Disc desiccation is seen at the remaining lumbar levels. The disc spaces are preserved. Spinal cord: The visualized spinal cord is normal in morphology and signal intensity. The conus medullaris terminates at the level of L1. The nerve roots of the cauda equina are normal in morphology. L1-L2: Unremarkable. L2-L3: Unremarkable. L3-L4: There is minimal posterior disc bulge which abuts the transiting nerve roots. The central canal is clear. There is a large right lateral disc bulge, which contributes to subarticular stenosis and impinges on the exiting right L3 nerve root. This is best seen on axial image #14. Mild left lateral disc bulge is noted. In conjunction with facet arthropathy there is moderate right and mild left neural foraminal stenosis. L4-L5: The central canal and neural foramina are grossly patent. L5-S1: Unremarkable. Sacrum: The visualized sacrum is normal in morphology and signal intensity. Soft tissues: Postoperative changes seen posterior to the thecal sac at L4-L5. The paraspinous soft tissues are otherwise normal in appearance. The retroperitoneal structures are grossly unremarkable but incompletely evaluated. IMPRESSION: 1. Lumbosacral spondylosis and postoperative change as above. See discussion for detailed level by level analysis. 2. There is no cord compromise of the central canal. 3. No destructive bony process is seen. Dictated: 07/23/2022 12:27 PM Transcribed: 07/23/2022 12:55 PM Marla [id number] [facility] Electronically signed by: Sebas Blair M.D. 07/23/2022 1:28 PM Chest X-Ray 07/23/22 14:28 XR chest 1V portable CLINICAL HISTORY: Hypoxia. COMPARISON STUDY: Chest radiograph July 18, 2021. FINDINGS: Lung volumes are normal. Lungs are clear. There is no pneumothorax or pleural effusion. Cardiac size is normal. Mediastinal contours are normal. There is no evidence for pulmonary edema. IMPRESSION: No acute cardiopulmonary findings. ACT 112: Negative or not required by law. Electronically signed by: Prasanth Carreon M.D. 07/23/2022 2:55 PM [facility] Narrative This patient comes in as described above. She was placed in room B8. She is here for treatment evaluation of back pain. Medical command was given by Dr. Singer and the patient received fentanyl 100 mcg IV and Zofran 4 mg IV. She is more comfortable still has severe pain with movement. She has no acute neurologic deficits or acute change in bowel or bladder function. She does have chronic back issues but feels this is different. IV access established blood work was obtained I gave her initial Dilaudid 1 mg IV, she is not driving she tells me she had Dilaudid before without any difficulties or problems. I did order CAT scan of her abdomen to rule out any intra-abdominal process or anything other than her back causing her symptoms as well as an MRI of her back, given her significant symptoms. CT of her abdomen pelvis are unremarkable. She has a mild elevated white count but no fever to suggest infection. She has no significant electrolyte or metabolic abnormalities. COVID testing was negative. MRI of her back shows a L3 disc pushing on the nerve root. The patient has received multiple doses of IV Dilaudid as well as IV Toradol while she is in h ere as well as IV Solu-Medrol and does not feel she can go home as she is in too much pain. I did text Dr. Ferguson and he is in the OR and does recommend medical admission. I consulted the [facility] team to see the patient for pain management and further treatment and evaluation Continuous cardiac monitoring: Orders placed in EMR for continuous cardiac monitoring. Upon interpretation patient was noted to be normal sinus rhythm with a rate of 70 Impression & Plan Back pain, Lumbar disc disease, Lab test negative for COVID-19 virus, Back pain with history of spinal surgery Discharge Plan Visit Data Chief Complaint: Back Injury/Pain Stated Complaint: BACK PAIN ED Provider: Yossi Terry Discharge Problem: Back pain, Lumbar disc disease, Lab test negative for COVID-19 virus, Back pain with history of spinal surgery Forms Stand Alone Forms: My [facility] Prescriptions Prescriptions: No Action Ozempic 1 mg/dose (4 mg/3 mL) pen injector 1 mg subcut WK 28 Days Qty: 21 1RF celecoxib [Celebrex] 200 mg capsule 200 mg PO DAILY PRN (Reason: Pain) albuterol sulfate 90 mcg/actuation HFA aerosol inhaler 2 puff inhalation QID PRN fluticasone propionate [Allergy Relief (fluticasone)] 50 mcg/actuation spray,suspension 2 spray intranasal DAILY Rx Instructions: administer into each nostril hydrocodone-acetaminophen 10-325 mg tablet 1 tab PO Q6H PRN magnesium hydroxide [Milk of Magnesia] 400 mg/5 mL Suspension 30 ml PO DAILY PRN (Reason: Stomach Upset) lorazepam 1 mg Tablet 1 mg PO Q6H PRN (Reason: Anxiety) Label Comments: couple weeks Rinvoq 15 mg Tablet Extended Release 24 Hr 15 mg PO HS cyanocobalamin (vitamin B-12) [Vitamin B-12] 1,000 mcg Tablet 1,000 mcg PO QAM zinc 50 mg Tablet 50 mg PO QAM vitamin D3-vitamin K2 5,500-200 unit-mcg Tablet 1 tab PO QAM pregabalin [Lyrica] 100 mg Capsule 100 mg PO TID Referrals Referrals: Leslie Garcia MD [Primary Care Provider] -
[2022-07-23] MEDS ORDERED: HYDROmorphone INJ 1 MG/ML SYRINGE IV STA ×2 (09:04→20:12)
[2022-07-23 09:14] LABS: Basophils # (auto) 0.05 K/uL (0-0.2); Basophils % (auto) 0.4 %; Eosinophils # (auto) 0.01 K/uL (0-0.50); Eosinophils % (auto) 0.1 %; Hematocrit (blood only) 43.1 % (34.1-44.9); Hemoglobin 14.5 g/dl (12.0-16.0); Immature Granulocytes # (auto) 0.09 K/uL (0.00-0.02); Immature Granulocytes % (auto) 0.6 %; Lymphocytes % (auto) 7.9 %; Mean Corpuscular Hemoglobin 31.9 pg (25.0-34.0); Mean Corpuscular Hgb Conc 33.6 g/dL (32.0-36.0); Mean Corpuscular Volume 94.7 fL (80.0-100.0); Monocytes # (auto) 0.49 K/uL (0.24-0.82); Monocytes % (auto) 3.5 %; Neutrophils # (auto) 12.11 K/uL (1.4-6.5); Neutrophils % (auto) 87.5 %; Platelet Count 305 K/uL (130-400); RDW Coefficient of Variation 13.3 % (11.5-14.5); RDW Standard Deviation 46.7 fL (36.4-46.3); Red Blood Count 4.55 M/uL (3.93-5.22); White Blood Count 13.85 K/ul (4.8-10.8)
[2022-07-23 09:27] LABS: Albumin Globulin Ratio 1.2 (0.9-2); Albumin Level 3.8 gm/dl (3.4-5.0); BUN Creatinine Ratio 15.4 (10-20); Bilirubin,Total 0.6 mg/dl (0.2-1.0); Calcium 9.5 mg/dl (8.5-10.1); Creatinine Clr Calc Pharmacy 79.1 ml/min; Est GFR (African American) 94.4 ml/min; Est GFR (Non-African American) 81.5 ml/min; Globulin 3.2 gm/dl (2.5-4.0)
[2022-07-23] MEDS ORDERED: HYDROmorphone INJ 0.5 MG/0.5 ML SYR IV STA ×2 (09:54→13:41)
--- NOTE | 2022-07-23 09:59 | CT Scan Report ---
CT SCAN OF THE ABDOMEN AND PELVIS WITHOUT IV CONTRAST CLINICAL HISTORY: Right flank pain. COMPARISON STUDY: Abdominal ultrasound dated 05/27/2012. TECHNIQUE: CT scan of the abdomen and pelvis is performed from the lung bases to the proximal femora. Images are reviewed in the axial, sagittal, and coronal planes. IV contrast was not administered for this examination. A dose lowering technique was utilized adhering to the principles of ALARA. CT DOSE: 828.59 mGy.cm FINDINGS: Lung bases: The heart is normal in size and without pericardial effusion. There are coronary artery c alcifications. Emphysematous change is suspected. The lung bases are clear noting dependent scarring/ atelectasis. There is a small hiatal hernia. Liver: The unenhanced liver is enlarged, measuring 18.8 cm in length. The liver demonstrates diminish ed attenuation indicating steatosis. Fatty sparing is seen adjacent to the gallbladder fossa. There i s no intrahepatic biliary ductal dilatation. Gallbladder: Unremarkable. Spleen: Normal in size and attenuation. Pancreas: Unremarkable. Adrenal glands: Unremarkable. Kidneys: The unenhanced kidneys demonstrate mild cortical atrophy and are without hydronephrosis. The re are no renal calculi identified. There is no evidence of contour deforming renal mass lesion. Abdominal vasculature: The abdominal aorta is normal in course and caliber noting advanced atheroscle rotic calcification. Bowel: There is no bowel obstruction. The appendix is not identified. Peritoneum: There is no intraperitoneal free air or abdominal ascites. There is a small fat-containin g umbilical hernia. Lymphadenopathy: None. Pelvic viscera: The bladder is markedly distended but otherwise normal in appearance. The uterus is s urgically absent. No adnexal lesion is seen. Skeletal structures: The skeletal structures are osteopenic. There is postsurgical change from L4-L5 spinal fusion. No lytic or blastic lesions are seen. IMPRESSION: 1. No acute infectious or inflammatory findings are identified in the abdomen or pelvis. 2. There is marked bladder distention. Correlate clinically for evidence of outlet obstruction. 3. Hepatomegaly and mild steatosis. 4. Additional findings as above. ACT 112: Negative or not required by law. Electronically signed by: Sebas Blair M.D. 07/23/2022 9:57 AM
[2022-07-23] MEDS ORDERED: ACETAMINOPHEN 1,000 MG/100 ML VIAL IV STA (10:00)
--- NOTE | 2022-07-23 13:29 | Magnetic Resonance Report ---
MRI OF THE LUMBAR SPINE WITHOUT CONTRAST CLINICAL HISTORY: Low back pain. Right lower extremity radiculopathy. COMPARISON STUDY: Abdominal CT dated 07/23/2022. TECHNIQUE: MRI of lumbar spine is performed utilizing various T1 and T2-weighted sequences in the axi al and sagittal planes. IV contrast was not imaged for this examination. FINDINGS: Lumbar spine: Vertebral body height and alignment are maintained throughout the lumbar spine. Small a nterior and lateral marginal osteophytes are seen throughout. There is postoperative change from lami nectomy and posterior fusion at L4-L5. Intrapedicular screws are in place. The transverse processes a ppear intact. There is no evidence of spondylolysis. No destructive bony lesion is seen. Chronic dege nerative endplate changes noted at L4-L5. Intervertebral discs: There has been discectomy at L4-L5. Disc desiccation is seen at the remaining l umbar levels. The disc spaces are preserved. Spinal cord: The visualized spinal cord is normal in morphology and signal intensity. The conus medul jocelyn terminates at the level of L1. The nerve roots of the cauda equina are normal in morphology. L1-L2: Unremarkable. L2-L3: Unremarkable. L3-L4: There is minimal posterior disc bulge which abuts the transiting nerve roots. The central angelo l is clear. There is a large right lateral disc bulge, which contributes to subarticular stenosis and impinges on the exiting right L3 nerve root. This is best seen on axial image #14. Mild left lateral disc bulge is noted. In conjunction with facet arthropathy there is moderate right and mild left jackie ral foraminal stenosis. L4-L5: The central canal and neural foramina are grossly patent. L5-S1: Unremarkable. Sacrum: The visualized sacrum is normal in morphology and signal intensity. Soft tissues: Postoperative changes seen posterior to the thecal sac at L4-L5. The paraspinous soft t issues are otherwise normal in appearance. The retroperitoneal structures are grossly unremarkable bu t incompletely evaluated. IMPRESSION: 1. Lumbosacral spondylosis and postoperative change as above. See discussion for detailed level by le wilfrid short. 2. There is no cord compromise of the central canal. 3. No destructive bony process is seen. Dictated: 07/23/2022 12:27 PM Transcribed: 07/23/2022 12:55 PM Marla [id number] Rigoberto Electronically signed by: Sebas Blair M.D. 07/23/2022 1:28 PM
[2022-07-23] MEDS ORDERED: methylPREDNISolone 125 MG/2 ML VIAL IV STA (13:38)
--- NOTE | 2022-07-23 14:10 | History & Physical Report ---
Date of Service July 23, 2022 Assessment & Plan (1) Lumbar stenosis with neurogenic claudication: Plan: -Admit to med/surge -No red flag symptoms currently, patient is able to void but currently scared to use the bedpan/walk to bathroom due to pain, will continue with pure-wick cath for now. Instructed the patient to tell her nurse if she experiences any saddle anesthesia or loss of bowel or bladder function. -MRI of the lumbar spine showing large disc herniation compressing the right L3 nerve root, not central canal stenosis -Was already given 2 mg IV dilaudid, IV tylenol, 125 mg IV methylprednisone, in the ED with mild relief of symptoms -Will start Gabapentin 100 mg PO TID now as her pain is radicular in nature, can titrate up as needed -Continue Lyrica, hydrocodone-tylenol q6h prn, will also order lidocaine patch and heating pad, IV dilaudid for breakthrough pain -Narcan ordered in case of narcotic overdose -Orthopedics consult placed, will keep NPO except meds for now in case of possible procedure -Will order PT/OT consults now -AM CBC and BMP (2) Hypoxia: Plan: -Patient was placed on 3L NC on arrival to the ED as her SpO2 was 91%; patient denies chest pain, SOB, or recent cough -Patient is an everyday smoker but no official COPD diagnosis -Her baseline O2 requirements are likely closer to 89-92% -Patient desatted intermittently to 88% during my exam, she may be taking small breaths/holding breath at times due to pain -Does not appear too sedated from recent narcotis at this time -Will order albuterol and obtain chest xray, prn O2 order placed to keep SpO2 between 89-92% for now -Continue home albuterol and fluticasone (3) DM2 (diabetes mellitus, type 2): Plan: -Normally on Semaglutide, already had her dose this week -Will monitor BSG q6h while NPO then ACHS -Liekly will be hyperglycemic due to dose of methylprednisone, will start with sliding scale with correction factor of 45 q6h while NPO then ACHS (4) Hyperlipidemia: Plan: -Continue statin (5) Anxiety: Plan: -Continue lyrica -Hold home ativan for now to avoid overseadating with current pain regimen (6) Sleep apnea: Plan: -HS CPAP ordered (7) Rheumatoid arthritis: Plan: -Continue Rinvoq Plan The patient was discussed with Dr. Minaya at the time of the admission History of Present Illness Chief Complaint: Back pain Primary Care Provider: Leslie Garcia MD Amada is a 61 year old female with a PMH significant for DM II, lumbar francisco j nosis with neurogenic claudication S/P L4-L5 Spinal fusion with Dr. Ferguson in 2016, Hyperlipidemia, RA, who presented to the [facility] ED on 07/23/22 with a cheif complaint of uncontrolled low back pain. In the Ed the patient was found to be afebrile, hemodynamically stable, and stable on RA. Labs were remarkable for a leukocytosis of 13.85, left shift of 12.11. CT of the abdomen/pelvis without IV contrast showed "No acute infectious or inflammatory findings are identified in the abdomen or pelvis. There is marked bladder distention. Correlate clinically for evidence of outlet obstructi on. Hepatomegaly and mild steatosis. The skeletal structures are osteopenic. There is postsurgical change from L4-L5 spinal fusion. No lytic or blastic lesions are seen.". MRI of the lumbar spine without contrast showed "Lumbosacral spondylosis and postoperative change as above. There is a large right lateral disc bulge, which contributes to subarticular stenosis and impinges on the exiting right L3 nerve root. There is no cord compromise of the central canal. No destructive bony process is seen.". The patient was given a total of 2 mg IV Dilaudid, 125 mg methylprednisone, and 1000 mg of IV tylenol but she was unable to get out of bed. The ED staff spoke to Dr. Ferguson who asked for medicine admission until he can further evaluate her for possible surgery. At the time of the exam the patient was lying in bed in no acute distress with her family sitting bedside. At the start of my exam the patient was noted to be on 3L NC, when asked she states that she is not on oxygen at baseline, she is still a daily smoker. She states that she has chronic back pain since her previous spinal fusion, the pain is normally in her lower back and will travel into her right buttocks. Starting yesterday she noted that the pain was exacerbated and now extends down into her right lateral thigh. She notes some tingling/numbness in that distribution as well. She denies any saddle anesthesia and loss of bowel or bladder function. She was able to get up this morning with the assistance of her cane and her but experienced severe pain when she sat on the toilet. She is currently scared to get up or move because the pain has been so severe. At baseline she normally uses a can due to a recent meniscal tear in her left knee. She denies any recent trauma and cannot think of an exact moment when the patient became exacerbated. Allergies Allergy/AdvReac Type Severity Reaction Status Date / Time No Known Allergies Allergy Mild Verified 07/23/22 15:50 Home Medications Medication Instructions Recorded Confirmed Type lorazepam 1 mg tablet 1 mg PO Q6H PRN Anxiety 06/28/18 07/23/22 History magnesium hydroxide 400 mg/5 mL 30 ml PO DAILY PRN Stomach Upset 06/28/18 07/23/22 History oral suspension (Milk of Magnesia) celecoxib 200 mg capsule (Celebrex) 200 mg PO DAILY PRN Pain 11/02/19 07/23/22 History cholecalciferol (vit D3) 5,500 1 tab PO QAM 07/17/21 07/23/22 History unit-vit K2 200 mcg tablet cyanocobalamin (vitamin B-12) 1,000 mcg PO QAM 07/17/21 07/23/22 History 1,000 mcg tablet (Vitamin B-12) pregabalin 100 mg capsule (Lyrica) 100 mg PO TID 07/17/21 07/23/22 History upadacitinib 15 mg tablet,extended 15 mg PO HS 07/17/21 07/23/22 History release 24 hr (Rinvoq) hydrocodone 10 mg-acetaminophen 1 tab PO Q6H PRN Pain 12/16/21 07/23/22 History 325 mg tablet albuterol sulfate 90 mcg/actuation 2 puff inhalation QID PRN 03/18/22 07/23/22 History aerosol inhaler Shortness Of Breath Or Wheezing fluticasone propionate 50 2 spray intranasal DAILY 03/18/22 07/23/22 History mcg/actuation nasal spray,suspension (Allergy Relief (fluticasone)) semaglutide 1 mg/dose (4 mg/3 mL) 1 mg (0.75 mL) subcut WK 4 weeks 07/03/22 07/23/22 Rx subcutaneous pen injector (Ozempic) #21 mL zinc acetate 50 mg (zinc) capsule 50 mg PO DAILY 07/23/22 07/23/22 History oxycodone 5 mg tablet 5 mg PO Q6H PRN pain, severe #30 07/26/22 Rx tabs tramadol 50 mg tablet 50 mg PO Q6H PRN pain, moderate 07/26/22 Rx #30 tabs ondansetron 4 mg disintegrating 4 mg PO Q6H PRN nausea and 07/28/22 Rx tablet vomiting #30 tabs Past Med/Surg History Medical History Anxiety Chronic back pain with radiculopathy Degenerative disc disease DM2 (diabetes mellitus, type 2) History of COVID-19 Dx Spring 2019 > symptoms at time of sinus headache, loss of taste and smell > symptoms resolved Obesity Osteoarthritis Rheumatoid arthritis Sleep apnea CPAP (compliant) Spinal stenosis Surgical History History of appendectomy History of bilateral tubal ligation History of colonoscopy History of dilatation and curettage X2 History of esophagogastroduodenoscopy (EGD) History of lumbar fusion L4-L5 (02/28/16): MAC #3, ETT #7.0 with Grade 1 view History of meniscectomy of left knee History of tooth extraction WTE History of total abdominal hysterectomy and bilateral salpingo-oophorectomy History of total left knee replacement Left TKA (01/14/19): SAB + PNB at [facility] Family History Grandmother Family history of diabetes mellitus PATERNAL Grandfather Family hx of colon cancer PATERNAL Grandfather (Paternal) Colorectal cancer Father Myocardial infarction Denies family history of Ovarian cancer Prostate cancer Breast cancer Social History Smoking Status: Current every day smoker Tobacco Type: Cigarettes Age Started Using Tobacco: 15; packs per day: 0; Cigarettes Per Day: 5-10; Second Hand Exposure: No; Hx Alcohol Use: No Hx Substance Use: No Preferred Language: Andorran Communication Ability: Effective Visual Impairment: No Limitations Hearing Ability: Normal 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 Beliefs That Will Affect Care: None marital status: Current Living Situation: Spouse current occupational status: retired How many Children do You have: 2 Feels Safe at Home: Yes Childhood Exposure to Second-Hand Smoke: Yes Dental Care, Regularly: Yes Physical Activity Frequency: Does not Exercise Seatbelt Use: always Sunscreen Use: Yes Assistive Devices: Cane and Walker Review of Systems Review of Systems: Denies current fever, chills, headache, changes in vision, hearing, taste, and smell, chest pain, SOB, cough, abdominal pain, nausea, vomiting, diarrhea, hematemesis, melena, dysuria, hematuria, and recent falls. All systems have been reviewed and are otherwise negative. Physical Exam Physical Exam: Physical Exam: General: In mild distress due to pain, stated age, well-nourished, good hygiene HEENT: Normocephalic, atraumatic, no scleral icterus, pupils around round, symmetrical, and reactive to light, moist mucus membranes, trachea midline, no thyromegaly Chest/Pulm: No respiratory distress, symmetrical chest expansion, clear breath sounds throughout Cardiac: RRR, no murmurs noted Abdomen: Negative for ascites and bruising, normoactive bowel sounds, soft, non-tender to palpation throughout Musculoskeletal: patient with full ROM of the BL upper extremities, intact ROM of the BL lower extremities with right < left due to her current pain. Extremities: Radial, dorsalis pedis, and posterior tibial pulses are intact and symmetrical, no edema noted in the BL LE's Skin: Warm, dry, no rashes , lesions, or scars noted Neuro: Alert and oriented to person, place, month, year, and president, no focal defects, CN II-XII tested and intact, symmetrical strength in the BL lower extremities, + patellar and and achilles reflex Psych: mild distress, cooperative during the exam Results & Data Results & Data ([facility]) Vital Signs (Past 12 Hours) Vital Signs Temp Pulse Pulse Resp BP BP Pulse Ox 07/23/22 13:00 63 14 94 07/23/22 13:00 133/62 07/23/22 12:30 64 15 07/23/22 12:30 130/72 07/23/22 12:28 67 12 96 07/23/22 12:28 133/78 07/23/22 12:13 94 07/23/22 11:01 67 12 95 07/23/22 11:01 138/87 07/23/22 11:00 64 12 96 07/23/22 10:30 73 14 96 07/23/22 10:30 121/73 07/23/22 10:00 61 16 98 07/23/22 10:00 128/70 07/23/22 09:30 69 21 98 07/23/22 09:30 145/93 H 07/23/22 09:01 69 17 96 07/23/22 09:01 162/105 H 07/23/22 09:00 72 24 96 07/23/22 08:30 67 21 96 07/23/22 08:30 145/80 H 07/23/22 08:19 72 19 90 07/23/22 09:47 66 20 91 07/23/22 08:17 67 16 146/88 H 90 07/23/22 08:17 37.1 C 73 18 146/88 H 91 O2 Del Method O2 Flow Rate 07/23/22 13:00 Nasal Cannula 3 07/23/22 13:00 07/23/22 12:30 07/23/22 12:30 07/23/22 12:28 Nasal Cannula 3 07/23/22 12:28 07/23/22 12:13 Nasal Cannula 3 07/23/22 11:01 Nasal Cannula 3 07/23/22 11:01 07/23/22 11:00 Nasal Cannula 3 07/23/22 10:30 07/23/22 10:30 07/23/22 10:00 07/23/22 10:00 07/23/22 09:30 07/23/22 09:30 07/23/22 09:01 07/23/22 09:01 07/23/22 09:00 07/23/22 08:30 07/23/22 08:30 07/23/22 08:19 07/23/22 09:47 Room Air 07/23/22 08:17 Room Air 07/23/22 08:17 Room Air Laboratory Results Abnormal lab results 07/23/22 Range/Units 08:29 WBC 13.85 H (4.8-10.8) K/ul RDW Std Deviation 46.7 H (36.4-46.3) fL MPV 9.0 L (9.4-12.3) fL Neut # (Auto) 12.11 H (1.4-6.5) K/uL Lymph # (Auto) 1.10 L (1.2-3.4) K/uL Immature Gran # (Auto) 0.09 H (0.00-0.02) K/uL Diagnostic Findings Abdomen/Pelvis CT 07/23/22 09:02 CT SCAN OF THE ABDOMEN AND PELVIS WITHOUT IV CONTRAST CLINICAL HISTORY: Right flank pain. COMPARISON STUDY: Abdominal ultrasound dated 05/27/2012. TECHNIQUE: CT scan of the abdomen and pelvis is performed from the lung bases to the proximal femora. Images are reviewed in the axial, sagittal, and coronal planes. IV contrast was not administered for this examination. A dose lowering technique was utilized adhering to the principles of ALARA. CT DOSE: 828.59 mGy.cm FINDINGS: Lung bases: The heart is normal in size and without pericardial effusion. There are coronary artery calcifications. Emphysematous change is suspected. The lung bases are clear noting dependent scarring/atelectasis. There is a small hiatal hernia. Liver: The unenhanced liver is enlarged, measuring 18.8 cm in length. The liver demonstrates diminished attenuation indicating steatosis. Fatty sparing is seen adjacent to the gallbladder fossa. There is no intrahepatic biliary ductal dilatation. Gallbladder: Unremarkable. Spleen: Normal in size and attenuation. Pancreas: Unremarkable. Adrenal glands: Unremarkable. Kidneys: The unenhanced kidneys demonstrate mild cortical atrophy and are without hydronephrosis. There are no renal calculi identified. There is no evidence of contour deforming renal mass lesion. Abdominal vasculature: The abdominal aorta is normal in course and caliber noting advanced atherosclerotic calcification. Bowel: There is no bowel obstruction. The appendix is not identified. Peritoneum: There is no intraperitoneal free air or abdominal ascites. There is a small fat-containing umbilical hernia. Lymphadenopathy: None. Pelvic viscera: The bladder is markedly distended but otherwise normal in appearance. The uterus is surgically absent. No adnexal lesion is seen. Skeletal structures: The skeletal structures are osteopenic. There is postsurgical change from L4-L5 spinal fusion. No lytic or blastic lesions are seen. IMPRESSION: 1. No acute infectious or inflammatory findings are identified in the abdomen or pelvis. 2. There is marked bladder distention. Correlate clinically for evidence of outlet obstruction. 3. Hepatomegaly and mild steatosis. 4. Additional findings as above. ACT 112: Negative or not required by law. Electronically signed by: Sebas Blair M.D. 07/23/2022 9:57 AM Lumbar Spine MRI 07/23/22 09:02 MRI OF THE LUMBAR SPINE WITHOUT CONTRAST CLINICAL HISTORY: Low back pain. Right lower extremity radiculopathy. COMPARISON STUDY: Abdominal CT dated 07/23/2022. TECHNIQUE: MRI of lumbar spine is performed utilizing various T1 and T2-weighted sequences in the axial and sagittal planes. IV contrast was not imaged for this examination. FINDINGS: Lumbar spine: Vertebral body height and alignment are maintained throughout the lumbar spine. Small anterior and lateral marginal osteophytes are seen throughout. There is postoperative change from laminectomy and posterior fusion at L4-L5. Intrapedicular screws are in place. The transverse processes appear intact. There is no evidence of spondylolysis. No destructive bony lesion is seen. Chronic degenerative endplate changes noted at L4-L5. Intervertebral discs: There has been discectomy at L4-L5. Disc desiccation is seen at the remaining lumbar levels. The disc spaces are preserved. Spinal cord: The visualized spinal cord is normal in morphology and signal intensity. The conus medullaris terminates at the level of L1. The nerve roots of the cauda equina are normal in morphology. L1-L2: Unremarkable. L2-L3: Unremarkable. L3-L4: There is minimal posterior disc bulge which abuts the transiting nerve roots. The central canal is clear. There is a large right lateral disc bulge, which contributes to subarticular stenosis and impinges on the exiting right L3 nerve root. This is best seen on axial image #14. Mild left lateral disc bulge is noted. In conjunction with facet arthropathy there is moderate right and mild left neural foraminal stenosis. L4-L5: The central canal and neural foramina are grossly patent. L5-S1: Unremarkable. Sacrum: The visualized sacrum is normal in morphology and signal intensity. Soft tissues: Postoperative changes seen posterior to the thecal sac at L4-L5. The paraspinous soft tissues are otherwise normal in appearance. The retroperitoneal structures are grossly unremarkable but incompletely evaluated. IMPRESSION: 1. Lumbosacral spondylosis and postoperative change as above. See discussion for detailed level by level analysis. 2. There is no cord compromise of the central canal. 3. No destructive bony process is seen. Dictated: 07/23/2022 12:27 PM Transcribed: 07/23/2022 12:55 PM Marla [id number] GEORGE_Julio C Electronically signed by: Sebas Blair M.D. 07/23/2022 1:28 PM ECG Additional Comments: No ECG available at the time of the admission Code Status & VTE Plan Code Status Full code VTE Prophylaxis Plan VTE Prophylaxis will be ordered: Yes Supervising Physician Co-Signing Physician Notes I personally saw and examined the patient. I verified all hong points and agree with Sergo Gonzalez PA-C with the following exceptions and/or additions: 61 year old female admission for intractable radicular back pain. Patient seen on the disla after admission. Acute on chronic. Not controlled on chronic opiates at home. No recent trauma to suspect she will improve with steroids. O/E L3 distribution numbness and pain on right side. HS1+2, RRR, no murmurs, Chest CTAB, Abdo SNT A/P Radicular intractable back pain - increase Dilaudid frequency to q2h as pain not yet adequately controlled. Agree with consulting ortho spine as patient appears to have limited conservative measures left and seriously affecting her quality of life. Stop gabapentin as already on Lyrica - will increase this dose to 150mg TID. PG Care Time/CCT Total # of Minutes Spent Total Time Spent with Patient: Total time spent is greater than 50% in coordination of care (as documented) at patient's floor/unit and/or counseling patient: Coding Level of Care Code Established Pt INT OBSERVATION CARE 30M LVL 1 Patient Type Established Medical Decision Making Moderate Complexity Diagnoses Lumbar stenosis with neurogenic claudication M48.062 Hypoxia R09.02 DM2 (diabetes mellitus, type 2) E11.9 Hyperlipidemia E78.5 Anxiety F41.9 Sleep apnea G47.30 Rheumatoid arthritis M06.9
[2022-07-23] MEDS ORDERED: GABAPENTIN 100 MG CAP PO ONE (14:34)
[2022-07-23] MEDS ORDERED: GABAPENTIN 100 MG CAP PO SCH ×2 (14:45→21:00)
--- NOTE | 2022-07-23 14:57 | XRay Report ---
XR chest 1V portable CLINICAL HISTORY: Hypoxia. COMPARISON STUDY: Chest radiograph July 18, 2021. FINDINGS: Lung volumes are normal. Lungs are clear. There is no pneumothorax or pleural effusion. Car diac size is normal. Mediastinal contours are normal. There is no evidence for pulmonary edema. IMPRESSION: No acute cardiopulmonary findings. ACT 112: Negative or not required by law. Electronically signed by: Prasanth Carreon M.D. 07/23/2022 2:55 PM
[2022-07-23] MEDS: ALBUTEROL 0.5% NEB SOLN 2.5 MG/0.5 ML VIAL NEB SCH ×2 (15:24→21:26)
[2022-07-23] MEDS ORDERED: HYDROmorphone INJ 0.5 MG/0.5 ML SYR IV PRN ×3 (17:40→20:15)
[2022-07-23] MEDS ORDERED: GLUCOSE 40% GEL 15 GM TUBE PO PRN (17:40)
[2022-07-23] MEDS ORDERED: CARBOHYDRATES FOR HYPOGLYCEMIA PO PRN (17:40)
[2022-07-23] MEDS ORDERED: ALBUTEROL HFA 8 GM INHALER INH PRN (17:40)
[2022-07-23] MEDS ORDERED: GLUCAGON FOR INJ 1 MG VIAL SQ PRN (17:40)
[2022-07-23] MEDS ORDERED: NALOXONE HCL 0.4 MG/1 ML VIAL/CARP IV PRN (17:40)
[2022-07-23] MEDS ORDERED: LIDOCAINE 5% 1 PATCH TD SCH (17:40)
[2022-07-23] MEDS ORDERED: GLUCOSE 10 TAB/TUBE PO PRN (17:40)
[2022-07-23] MEDS ORDERED: DEXTROSE 50% 50 ML SYRINGE IV PRN (17:40)
[2022-07-23] MEDS: INSULIN ASPART PER UNIT SC SCH (18:42)
[2022-07-23] MEDS ORDERED: ONDANSETRON 4 MG OD TAB PO STA (19:39)
[2022-07-23 20:42] LABS: Appearance Urine Clear (Clear); Bacteria Urine Automated Negative (Negative); Bilirubin Urine Negative (Negative); Blood Urine 1+ (Negative); Cast Urine Automated 0 /lpf (0-5); Color Urine Yellow; Epithelial Cell Urine Auto 0-5 /lpf (0-5); Glucose Urine UA Negative (Negative); Ketones Urine Negative (Negative); Leukocyte Esterase Urine Negative (Negative); Nitrite Urine Negative (Negative); Protein Urine Negative (Negative); Specific Gravity Urine 1.009 (1.000-1.030); Urobilinogen Urine Negative (Negative); WBC Urine Automated 0 /hpf (0-5); pH Urine 7.5 (4.5-7.5)
[2022-07-23] MEDS ORDERED: PREGABALIN 100 MG CAP PO SCH (21:00)
[2022-07-23] MEDS: PREGABALIN 150 MG CAP PO SCH (21:12)
[2022-07-23] MEDS ORDERED: ALBUTEROL 0.5% NEB SOLN 2.5 MG/0.5 ML VIAL NEB PRN (21:54)
[2022-07-23] MEDS ORDERED: ALBUTEROL 0.083% NEBU SOLN 3 ML VIAL NEB PRN (22:04)
[2022-07-23] MEDS: HYDROcodone/ACETAMINOPHEN 10/325 TAB PO PRN (22:23)
[2022-07-23] MEDS: LACTATED RINGER'S 1,000 ML IV SCH (22:25)
[2022-07-23] MEDS: HYDROmorphone INJ 1 MG/ML SYRINGE IV PRN (23:17)
[2022-07-24] MEDS: HYDROmorphone INJ 1 MG/ML SYRINGE IV PRN ×5 (01:44→10:45)
[2022-07-24] MEDS: HYDROcodone/ACETAMINOPHEN 10/325 TAB PO PRN ×2 (05:19→13:27)
[2022-07-24] MEDS: INSULIN ASPART PER UNIT SC SCH ×5 (06:02→20:34)
[2022-07-24 08:08] LABS: Hematocrit (blood only) 43.5 % (34.1-44.9); Hemoglobin 14.7 g/dl (12.0-16.0); Mean Corpuscular Hgb Conc 33.8 g/dL (32.0-36.0); Mean Corpuscular Volume 94.6 fL (80.0-100.0); Mean Platelet Volume 8.6 fL (9.4-12.3); Platelet Count 251 K/uL (130-400); RDW Coefficient of Variation 13.4 % (11.5-14.5); RDW Standard Deviation 46.6 fL (36.4-46.3)
--- NOTE | 2022-07-24 08:23 | Orthopedic Consultation ---
Date of Consultation July 24, 2022 Assessment & Plan (1) Lumbar disc herniation with radiculopathy: MRI lumbar spine from yesterday demonstrates foraminal disc herniation L3-L4 on the right with associated facet hypertrophy. There is obvious compression of the exiting L3 nerve root on the right. This is concordant with her clinical presentation. Plan at this time I discussed with her treatment options with him which include continued medications injections versus surgical invention. She is quite miserable unable to ambulate secondary to pain requiring IV narcotics and would like to prefer surgical invention. This is completely reasonable. Prickly with her progressive neuro deficit I recommend urgent lumbar decompression L3-L4 with fusion. She would require complete L3-L4 facetectomy on the right to safely and adequately decompress the exiting nerve root and address the disc herniation. I remove the instrumentation L4-5 and extend the fusion L3-L4. Risk benefits pros cons alternatives were outlined in detail. We will make her n.p.o. after midnight plan for surgery in the a.m. History of Present Illness Reason for Consultation: Severe right leg pain and inability to ambulate Attending Physician: Pastor Marie MD History of Present Illness This is a 61-year-old female known to me having undergone a lumbar decompression fusion L4-5 many years ago. She presents to the emergency room yesterday with severe right leg pain and inability to ambulate. She states that symptoms began approximately 2 days ago. She denies any specific trauma fall or event. Pain radiates to the right buttock into the right groin down the right anterior thigh to the knee. She has been undergoing several injections over the year with interventional pain management. These have originally provided some relief but her symptoms are now markedly worse. Left lower extremities asymptomatic. She is requiring IV Dilaudid every 2 hours to control her pain. She is unable to sit up or roll over without aches cruciate and discomfort. Allergies Allergy/AdvReac Type Severity Reaction Status Date / Time No Known Allergies Allergy Mild Verified 07/23/22 15:50 Home Medications Medication Instructions Recorded Confirmed Type lorazepam 1 mg tablet 1 mg PO Q6H PRN Anxiety 06/28/18 07/23/22 History magnesium hydroxide 400 mg/5 mL 30 ml PO DAILY PRN Stomach Upset 06/28/18 07/23/22 History oral suspension (Milk of Magnesia) celecoxib 200 mg capsule (Celebrex) 200 mg PO DAILY PRN Pain 11/02/19 07/23/22 History cholecalciferol (vit D3) 5,500 1 tab PO QAM 07/17/21 07/23/22 History unit-vit K2 200 mcg tablet cyanocobalamin (vitamin B-12) 1,000 mcg PO QAM 07/17/21 07/23/22 History 1,000 mcg tablet (Vitamin B-12) pregabalin 100 mg capsule (Lyrica) 100 mg PO TID 07/17/21 07/23/22 History upadacitinib 15 mg tablet,extended 15 mg PO HS 07/17/21 07/23/22 History release 24 hr (Rinvoq) hydrocodone 10 mg-acetaminophen 1 tab PO Q6H PRN Pain 12/16/21 07/23/22 History 325 mg tablet albuterol sulfate 90 mcg/actuation 2 puff inhalation QID PRN 03/18/22 07/23/22 History aerosol inhaler Shortness Of Breath Or Wheezing fluticasone propionate 50 2 spray intranasal DAILY 03/18/22 07/23/22 History mcg/actuation nasal spray,suspension (Allergy Relief (fluticasone)) semaglutide 1 mg/dose (4 mg/3 mL) 1 mg (0.75 mL) subcut WK 4 weeks 07/03/22 07/23/22 Rx subcutaneous pen injector (Ozempic) #21 mL zinc acetate 50 mg (zinc) capsule 50 mg PO DAILY 07/23/22 07/23/22 History Patient History Medical History (Updated 07/24/22 @ 08:22 by Kavon Ferguson DO) Anxiety Chronic back pain with radiculopathy Degenerative disc disease DM2 (diabetes mellitus, type 2) History of COVID-19 Dx Spring 2019 > symptoms at time of sinus headache, loss of taste and smell > symptoms resolved Obesity Osteoarthritis Rheumatoid arthritis Sleep apnea CPAP (compliant) Spinal stenosis Surgical History History of appendectomy History of bilateral tubal ligation History of colonoscopy History of dilatation and curettage X2 History of esophagogastroduodenoscopy (EGD) History of lumbar fusion L4-L5 (02/28/16): MAC #3, ETT #7.0 with Grade 1 view History of meniscectomy of left knee History of tooth extraction WTE History of total abdominal hysterectomy and bilateral salpingo-oophorectomy History of total left knee replacement Left TKA (01/14/19): SAB + PNB at [facility] Family History Grandmother Family history of diabetes mellitus PATERNAL Grandfather Family hx of colon cancer PATERNAL Grandfather (Paternal) Colorectal cancer Father Myocardial infarction Denies family history of Ovarian cancer Prostate cancer Breast cancer Social History Smoking Status: Current every day smoker Tobacco Type: Cigarettes Age Started Using Tobacco: 15; packs per day: 0; Cigarettes Per Day: 5-10; Second Hand Exposure: No; Do You Dip or Chew Tobacco: No; Tobacco Cessation Education Requested by Patient: Yes Hx Alcohol Use: No Hx Substance Use: No Preferred Language: Danish Communication Ability: Effective Visual Impairment: No Limitations Hearing Ability: Normal Fire Extinguisher Installer Required: No Beliefs That Will Affect Care: None marital status: Current Living Situation: Spouse current occupational status: retired How many Children do You have: 2 Other Information That Helps Us Care for You: No Feels Safe at Home: Yes Safety Concerns: Feels Safe At This Time Childhood Exposure to Second-Hand Smoke: Yes Dental Care, Regularly: Yes Physical Activity Frequency: Does not Exercise Seatbelt Use: always Sunscreen Use: Yes Assistive Devices: CPAP, Glasses and Walker Physical Exam Physical Exam: On physical exam she is no distress. She exhibits plus out of 5 bilateral plantar flexion dorsiflexion. The right quadriceps at this a 4-/5 compared to 5 5 on the left. She has marked sensory deficits to cold and light touch to the right as well as absent deep tendon reflexes. Results & Data ([facility]) Vital Signs (Past 12 Hours) Vital Signs Temp Pulse Pulse Resp BP Pulse Ox O2 Del Method 07/24/22 08:03 36.8 C 18 157/72 H 95 Room Air 07/24/22 02:24 88 12 94 07/23/22 21:22 81 25 H 93 Nasal Cannula 07/23/22 21:40 36.9 C 75 16 146/76 H 95 Nasal Cannula 07/23/22 21:17 77 163/79 H 95 Nasal Cannula O2 Flow Rate 07/24/22 08:03 07/24/22 02:24 2 07/23/22 21:22 2 07/23/22 21:40 2 07/23/22 21:17 2
[2022-07-24 08:26] LABS: Calcium 9.7 mg/dl (8.5-10.1); Est GFR (Non-African American) 85.4 ml/min; Potassium 4.2 mmol/L (3.5-5.1)
[2022-07-24] MEDS ORDERED: Nursing to Pharmacy Communication SCH (08:30)
[2022-07-24] MEDS: LACTATED RINGER'S 1,000 ML IV SCH (08:41)
[2022-07-24 08:48] LABS: Prothrombin Time 10.6 Seconds (9.0-12.0)
[2022-07-24] MEDS: PREGABALIN 150 MG CAP PO SCH ×3 (09:11→20:24)
[2022-07-24] MEDS: FLUTICASONE PROPIONATE NA SPR 16 GM BTL SCH (09:19)
[2022-07-24] MEDS: DOCUSATE SODIUM/SENNA 50/8.6MG TAB PO SCH (09:20)
[2022-07-24 09:46] LABS: Estimated Average Glucose 134 mg/dl; Hemoglobin A1C 6.3 % (4.5-5.6)
[2022-07-24] MEDS ORDERED: NALOXONE HCL 0.4 MG/1 ML VIAL/CARP IV PRN (13:10)
[2022-07-24] MEDS ORDERED: HYDROmorphone PCA 30 MG/30 ML IV PRN (13:10)
--- NOTE | 2022-07-24 13:11 | Hospitalist Progress Note ---
Date of Service July 24, 2022 Assessment & Plan (1) Lumbar stenosis with neurogenic claudication: Plan: No red flag/cauda equina currently but acute worsening of chronic back pain with R sided weakness and radicular symptoms. Prior back surgery with Dr Ferguson years ago, has been getting injections for her back as outpatient , as much as allowed by insurance MRI Lumbar Spine with foraminal disc herniation L3-L4 on the right with associated facet hypertrophy. Per Dr Ferguson, also with obvious compression of the exiting L3 nerve root on the right. Ortho spine consulted-- Dr Ferguson -NPO at midnight and hoping for insurance authorization to proceed with urgent lumbar decompression L4-L4 with fusion, complete L3-L4 facetectomy on the right to safely decompress exiting nerve root and addrress disc herniation and remove instrumentation L4-L5 and extend fusion L3-L4 WBC elevation 16.7k likely from methylprednisolone given in ER 125mg x 1. Afebrile Pain control --> had been requiring IV dilaudid every 4 hours without control, decreased to Q2h frequency and reporting inadequate control at end of interval --> Discussed with patient and ordered for Dilaudid NITRO WORKER .5mg/hr continuous with 0.1mg breakthrough dosing to allow for more continuous control/prevent excessive spikes in her pain --> continue Lyrica, lidocaine/heating patches, hydrocodone-tylenol prn Started gabapentin 100mg PO TID as radicular pain in nature on H&P report --> appears we have instead increased the Lyrica to 150mg TID (prior taking 100mg BID) Narcan available if needed Bowel regimen ordered --> added miralax TID, senna/docusate daily. Will need aggressive bowel regimen after surgery. Monitor for any obstruction/ileus Encouraged ambulation --> reported needing to be bedrest per Dr Ferguson per patient. Confirmed for comfort but can ambulate as tolerated Checking UA given possible outlet obs on imaging -- also needs to move her bowels ?Relistor if need for opiate induced constipation PT/OT consults following (2) Hypoxia: Plan: Hypoxic with pain medications, no SOB/CP reported CXR negative On RA this morning but supplemental O2 with pain medication as needed -- every day smoker, titrate to maintain saturations changed pain medication to NITRO WORKER with lower baseline rate to prevent acute drops Continue albuterol, fluticasone Supplemental O2 as needed (3) DM2 (diabetes mellitus, type 2): Plan: Normally on Semaglutide, already had her dose this week A1c 6.3 on check BSG AC/HS, Q6 when NPO at midnight BSGs have been acceptable, monitor with diet ordered and suspect increased needs post-op with steroid use Monitor (4) Hyperlipidemia: Plan: Continue statin (5) Anxiety: Plan: -Continue lyrica , increased for pain control as above Resumed ativan as needed given reported anxiety and to prevent withdrawal and very anxious about procedure, will need to inquire frequency she takes at home (6) Sleep apnea: Plan: HS CPAP ordered (7) Rheumatoid arthritis: Plan: Continue Rinvoq -- non formulary -- would place on hold during surgery, would hold to ensure good wound healing post-op may contribute to increased pain while off , see above DVT prophylaxis -- SCDs, leslie hose chemical deferred given upcoming surgery Plan continued inpatient stay, changed to full admission diet for today, NPO after midnight for OR bowel regimen/ambulation as tolerated encouraged Dilaudid NITRO WORKER for pain control Admission and Anticipated Discharge Date Admission Date: July 24, 2022 Subjective Prior doing injections, hx back surgery acute worsening 2 days ago, no trauma thought surgery today, excruciating pain yesterday in ER waiting for medications/treatment planning NPO for tonight, discussed dilaudid NITRO WORKER for continuous pain control as Q2H wearing off. She is anxious about surgery adn details for tomorrow and having to move her bowels. Passing little bit of gas, bowel regimen ordered. Typically on PO oxycodone multiple times daily at home. Just completed therapy earlier this year for her second L knee. No fever/chills, chest pain, no shortness of breath but on 2L at times w/ pain meds as drops her saturations. Has not been out of bed for 2 days. Only been log rolling in bed. NPO after midnight and hoping to get insurance authorization for tomorrow. Per patient, per Dr Ferugson, does not want patient up out of bed. Review of Systems Review of Systems: All systems reviewed & are unremarkable except as noted in HPI & below Physical Exam Physical Exam: General: WD/WN obese female, NAD but does appear mildly uncomfortable with movements in bed HEENT: head normocephalic, atraumatic, mmm, trachea midline Resp: CTAB, diminished in the bases, no wheezing/crackles, on 2L while getting pain medication (RA this morning) CV: RRR, no m/r/g, no calf edema/tenderness to palpation GI: +BS (slightly hypoactive but present throughout), nontender, +distended, no guarding ridigity ; no gutierrez MSK/Neuro: decreased DTS on the right compared to left, decreased strength right quad 4/5 compared to right 5/5, slight decrease in plantar flexion as well, slightly decreased sensation to light touch increased pain with movement/twisting in bed, increased pain reported with straight leg follows commands, no slurred speech Psych: aox3, cooperative, anxious about surgery Results & Data Results & Data ([facility]) Vital Signs (Past 12 Hours) Vital Signs Temp Pulse Resp BP Pulse Ox O2 Del Method O2 Flow Rate 07/24/22 07:11 79 15 94 07/24/22 08:03 36.8 C 18 157/72 H 95 Room Air 07/24/22 02:24 88 12 94 2 Laboratory Results 07/24/22 07/24/22 07/24/22 Range/Units 12:07 08:40 07:44 WBC (4.8-10.8) K/ul RBC (3.93-5.22) M/uL Hgb (12.0-16.0) g/dl Hct (34.1-44.9) % MCV (80.0-100.0) fL MCH (25.0-34.0) pg MCHC (32.0-36.0) g/dL RDW Std Deviation (36.4-46.3) fL RDW Coeff of Venu (11.5-14.5) % Plt Count (130-400) K/uL MPV (9.4-12.3) fL PT (9.0-12.0) Seconds INR (0.9-1.1) Sodium 136 (136-145) mmol/L Potassium 4.2 (3.5-5.1) mmol/L Chloride 104 (98-107) mmol/L Carbon Dioxide 25 (21-32) mmol/L Anion Gap 7 (3-11) BUN 21 (6-23) mg/dl Creatinine 0.75 (0.6-1.2) mg/dl Est Cr Clr Drug Dosing 80.0 ml/min Est GFR ( Amer) 99.0 ml/min Est GFR (Non-Af Amer) 85.4 ml/min BUN/Creatinine Ratio 28.0 H (10-20) Glucose 109 H (70-99(Fasting)) mg/dl POC Glucose 104 H 108 H (70-99) mg/dl Estimat Average Glucose mg/dl Hemoglobin A1c (4.5-5.6) % Calcium 9.7 (8.5-10.1) mg/dl Urine Color Urine Appearance (Clear) Urine pH (4.5-7.5) Ur Specific [place] (1.000-1.030) Urine Protein (Negative) Urine Glucose (UA) (Negative) Urine Ketones (Negative) Urine Blood (Negative) Urine Nitrite (Negative) Urine Bilirubin (Negative) Urine Urobilinogen (Negative) Ur Leukocyte Esterase (Negative) Urine WBC (Auto) (0-5) /hpf Urine RBC (Auto) (0-4) /hpf U Hyaline Cast (Auto) (0-5) /lpf U Epithel Cells (Auto) (0-5) /lpf Urine Bacteria (Auto) (Negative) SARS-CoV-2, RNA, NAAT (NEGATIVE) 07/24/22 07/24/22 07/24/22 Range/Units 07:44 07:44 07:44 WBC 16.70 H (4.8-10.8) K/ul RBC 4.60 (3.93-5.22) M/uL Hgb 14.7 (12.0-16.0) g/dl Hct 43.5 (34.1-44.9) % MCV 94.6 (80.0-100.0) fL MCH 32.0 (25.0-34.0) pg MCHC 33.8 (32.0-36.0) g/dL RDW Std Deviation 46.6 H (36.4-46.3) fL RDW Coeff of Venu 13.4 (11.5-14.5) % Plt Count 251 (130-400) K/uL MPV 8.6 L (9.4-12.3) fL PT 10.6 (9.0-12.0) Seconds INR 1.0 (0.9-1.1) Sodium (136-145) mmol/L Potassium (3.5-5.1) mmol/L Chloride (98-107) mmol/L Carbon Dioxide (21-32) mmol/L Anion Gap (3-11) BUN (6-23) mg/dl Creatinine (0.6-1.2) mg/dl Est Cr Clr Drug Dosing ml/min Est GFR ( Amer) ml/min Est GFR (Non-Af Amer) ml/min BUN/Creatinine Ratio (10-20) Glucose (70-99(Fasting)) mg/dl POC Glucose (70-99) mg/dl Estimat Average Glucose 134 mg/dl Hemoglobin A1c 6.3 H (4.5-5.6) % Calcium (8.5-10.1) mg/dl Urine Color Urine Appearance (Clear) Urine pH (4.5-7.5) Ur Specific [place] (1.000-1.030) Urine Protein (Negative) Urine Glucose (UA) (Negative) Urine Ketones (Negative) Urine Blood (Negative) Urine Nitrite (Negative) Urine Bilirubin (Negative) Urine Urobilinogen (Negative) Ur Leukocyte Esterase (Negative) Urine WBC (Auto) (0-5) /hpf Urine RBC (Auto) (0-4) /hpf U Hyaline Cast (Auto) (0-5) /lpf U Epithel Cells (Auto) (0-5) /lpf Urine Bacteria (Auto) (Negative) SARS-CoV-2, RNA, NAAT (NEGATIVE) 07/24/22 07/23/22 07/23/22 Range/Units 05:51 23:05 18:22 WBC (4.8-10.8) K/ul RBC (3.93-5.22) M/uL Hgb (12.0-16.0) g/dl Hct (34.1-44.9) % MCV (80.0-100.0) fL MCH (25.0-34.0) pg MCHC (32.0-36.0) g/dL RDW Std Deviation (36.4-46.3) fL RDW Coeff of Venu (11.5-14.5) % Plt Count (130-400) K/uL MPV (9.4-12.3) fL PT (9.0-12.0) Seconds INR (0.9-1.1) Sodium (136-145) mmol/L Potassium (3.5-5.1) mmol/L Chloride (98-107) mmol/L Carbon Dioxide (21-32) mmol/L Anion Gap (3-11) BUN (6-23) mg/dl Creatinine (0.6-1.2) mg/dl Est Cr Clr Drug Dosing ml/min Est GFR ( Amer) ml/min Est GFR (Non-Af Amer) ml/min BUN/Creatinine Ratio (10-20) Glucose (70-99(Fasting)) mg/dl POC Glucose 123 H 138 H 117 H (70-99) mg/dl Estimat Average Glucose mg/dl Hemoglobin A1c (4.5-5.6) % Calcium (8.5-10.1) mg/dl Urine Color Urine Appearance (Clear) Urine pH (4.5-7.5) Ur Specific [place] (1.000-1.030) Urine Protein (Negative) Urine Glucose (UA) (Negative) Urine Ketones (Negative) Urine Blood (Negative) Urine Nitrite (Negative) Urine Bilirubin (Negative) Urine Urobilinogen (Negative) Ur Leukocyte Esterase (Negative) Urine WBC (Auto) (0-5) /hpf Urine RBC (Auto) (0-4) /hpf U Hyaline Cast (Auto) (0-5) /lpf U Epithel Cells (Auto) (0-5) /lpf Urine Bacteria (Auto) (Negative) SARS-CoV-2, RNA, NAAT (NEGATIVE) 07/23/22 07/23/22 Range/Units 18:00 14:10 WBC (4.8-10.8) K/ul RBC (3.93-5.22) M/uL Hgb (12.0-16.0) g/dl Hct (34.1-44.9) % MCV (80.0-100.0) fL MCH (25.0-34.0) pg MCHC (32.0-36.0) g/dL RDW Std Deviation (36.4-46.3) fL RDW Coeff of Venu (11.5-14.5) % Plt Count (130-400) K/uL MPV (9.4-12.3) fL PT (9.0-12.0) Seconds INR (0.9-1.1) Sodium (136-145) mmol/L Potassium (3.5-5.1) mmol/L Chloride (98-107) mmol/L Carbon Dioxide (21-32) mmol/L Anion Gap (3-11) BUN (6-23) mg/dl Creatinine (0.6-1.2) mg/dl Est Cr Clr Drug Dosing ml/min Est GFR ( Amer) ml/min Est GFR (Non-Af Amer) ml/min BUN/Creatinine Ratio (10-20) Glucose (70-99(Fasting)) mg/dl POC Glucose (70-99) mg/dl Estimat Average Glucose mg/dl Hemoglobin A1c (4.5-5.6) % Calcium (8.5-10.1) mg/dl Urine Color Yellow Urine Appearance Clear (Clear) Urine pH 7.5 (4.5-7.5) Ur Specific [place] 1.009 (1.000-1.030) Urine Protein Negative (Negative) Urine Glucose (UA) Negative (Negative) Urine Ketones Negative (Negative) Urine Blood 1+ H (Negative) Urine Nitrite Negative (Negative) Urine Bilirubin Negative (Negative) Urine Urobilinogen Negative (Negative) Ur Leukocyte Esterase Negative (Negative) Urine WBC (Auto) 0 (0-5) /hpf Urine RBC (Auto) 5-10 H (0-4) /hpf U Hyaline Cast (Auto) 0 (0-5) /lpf U Epithel Cells (Auto) 0-5 (0-5) /lpf Urine Bacteria (Auto) Negative (Negative) SARS-CoV-2, RNA, NAAT NEGATIVE (NEGATIVE) Diagnostic Findings Abdomen/Pelvis CT 07/23/22 09:02 CT SCAN OF THE ABDOMEN AND PELVIS WITHOUT IV CONTRAST CLINICAL HISTORY: Right flank pain. COMPARISON STUDY: Abdominal ultrasound dated 05/27/2012. TECHNIQUE: CT scan of the abdomen and pelvis is performed from the lung bases to the proximal femora. Images are reviewed in the axial, sagittal, and coronal planes. IV contrast was not administered for this examination. A dose lowering technique was utilized adhering to the principles of ALARA. CT DOSE: 828.59 mGy.cm FINDINGS: Lung bases: The heart is normal in size and without pericardial effusion. There are coronary artery calcifications. Emphysematous change is suspected. The lung bases are clear noting dependent scarring/atelectasis. There is a small hiatal hernia. Liver: The unenhanced liver is enlarged, measuring 18.8 cm in length. The liver demonstrates diminished attenuation indicating steatosis. Fatty sparing is seen adjacent to the gallbladder fossa. There is no intrahepatic biliary ductal dilatation. Gallbladder: Unremarkable. Spleen: Normal in size and attenuation. Pancreas: Unremarkable. Adrenal glands: Unremarkable. Kidneys: The unenhanced kidneys demonstrate mild cortical atrophy and are without hydronephrosis. There are no renal calculi identified. There is no evidence of contour deforming renal mass lesion. Abdominal vasculature: The abdominal aorta is normal in course and caliber noting advanced atherosclerotic calcification. Bowel: There is no bowel obstruction. The appendix is not identified. Peritoneum: There is no intraperitoneal free air or abdominal ascites. There is a small fat-containing umbilical hernia. Lymphadenopathy: None. Pelvic viscera: The bladder is markedly distended but otherwise normal in appearance. The uterus is surgically absent. No adnexal lesion is seen. Skeletal structures: The skeletal structures are osteopenic. There is postsurgical change from L4-L5 spinal fusion. No lytic or blastic lesions are seen. IMPRESSION: 1. No acute infectious or inflammatory findings are identified in the abdomen or pelvis. 2. There is marked bladder distention. Correlate clinically for evidence of outlet obstruction. 3. Hepatomegaly and mild steatosis. 4. Additional findings as above. ACT 112: Negative or not required by law. Electronically signed by: Sebas Blair M.D. 07/23/2022 9:57 AM Lumbar Spine MRI 07/23/22 09:02 MRI OF THE LUMBAR SPINE WITHOUT CONTRAST CLINICAL HISTORY: Low back pain. Right lower extremity radiculopathy. COMPARISON STUDY: Abdominal CT dated 07/23/2022. TECHNIQUE: MRI of lumbar spine is performed utilizing various T1 and T2-weighted sequences in the axial and sagittal planes. IV contrast was not imaged for this examination. FINDINGS: Lumbar spine: Vertebral body height and alignment are maintained throughout the lumbar spine. Small anterior and lateral marginal osteophytes are seen throughout. There is postoperative change from laminectomy and posterior fusion at L4-L5. Intrapedicular screws are in place. The transverse processes appear intact. There is no evidence of spondylolysis. No destructive bony lesion is seen. Chronic degenerative endplate changes noted at L4-L5. Intervertebral discs: There has been discectomy at L4-L5. Disc desiccation is seen at the remaining lumbar levels. The disc spaces are preserved. Spinal cord: The visualized spinal cord is normal in morphology and signal intensity. The conus medullaris terminates at the level of L1. The nerve roots of the cauda equina are normal in morphology. L1-L2: Unremarkable. L2-L3: Unremarkable. L3-L4: There is minimal posterior disc bulge which abuts the transiting nerve roots. The central canal is clear. There is a large right lateral disc bulge, which contributes to subarticular stenosis and impinges on the exiting right L3 nerve root. This is best seen on axial image #14. Mild left lateral disc bulge is noted. In conjunction with facet arthropathy there is moderate right and mild left neural foraminal stenosis. L4-L5: The central canal and neural foramina are grossly patent. L5-S1: Unremarkable. Sacrum: The visualized sacrum is normal in morphology and signal intensity. Soft tissues: Postoperative changes seen posterior to the thecal sac at L4-L5. The paraspinous soft tissues are otherwise normal in appearance. The retrope ritoneal structures are grossly unremarkable but incompletely evaluated. IMPRESSION: 1. Lumbosacral spondylosis and postoperative change as above. See discussion for detailed level by level analysis. 2. There is no cord compromise of the central canal. 3. No destructive bony process is seen. Dictated: 07/23/2022 12:27 PM Transcribed: 07/23/2022 12:55 PM Marla [id number] GEORGE_Martinez Electronically signed by: Sebas Blair M.D. 07/23/2022 1:28 PM Chest X-Ray 07/23/22 14:28 XR chest 1V portable CLINICAL HISTORY: Hypoxia. COMPARISON STUDY: Chest radiograph July 18, 2021. FINDINGS: Lung volumes are normal. Lungs are clear. There is no pneumothorax or pleural effusion. Cardiac size is normal. Mediastinal contours are normal. There is no evidence for pulmonary edema. IMPRESSION: No acute cardiopulmonary findings. ACT 112: Negative or not required by law. Electronically signed by: Prasanth Carreon M.D. 07/23/2022 2:55 PM PG Care Time/CCT Total # of Minutes Spent Total Time Spent with Patient: Total time spent is greater than 50% in coordination of care (as documented) at patient's floor/unit and/or counseling patient: Coding Level of Care Code 10893 Subseq Hosp Care Lvl 3 Diagnoses Lumbar stenosis with neurogenic claudication M48.062 Hypoxia R09.02 DM2 (diabetes mellitus, type 2) E11.9 Hyperlipidemia E78.5 Anxiety F41.9 Sleep apnea G47.30 Rheumatoid arthritis M06.9
[2022-07-24] MEDS: SODIUM CHLORIDE 0.9% 1000ML 1,000 ML IV SCH (14:16)
[2022-07-24] MEDS: POLYETHYLENE (MIRALAX) 17 GM PACK PO SCH ×2 (14:22→20:24)
[2022-07-24] MEDS ORDERED: LORazepam 1 MG TAB PO PRN (14:33)
[2022-07-24] MEDS ORDERED: HYDROmorphone INJ 1 MG/ML SYRINGE IV PRN (15:49)
[2022-07-24] MEDS ORDERED: MAGNESIUM HYDROXIDE SUSP 30 ML UDC PO ONE (15:55)
[2022-07-24] MEDS ORDERED: bisacodyL 10 MG SUPP PR STA (17:45)
[2022-07-24] MEDS ORDERED: bisacodyL 10 MG SUPP PR PRN (17:45)
[2022-07-24] MEDS ORDERED: LIDOCAINE 5% 1 PATCH TD SCH (21:00)
[2022-07-25] MEDS ORDERED: Nursing to Pharmacy Communication SCH ×2 (07:15→18:00)
[2022-07-25] MEDS: INSULIN ASPART PER UNIT SC SCH ×5 (07:39→22:43)
[2022-07-25] MEDS: PREGABALIN 150 MG CAP PO SCH ×3 (08:16→22:41)
[2022-07-25] MEDS: POLYETHYLENE (MIRALAX) 17 GM PACK PO SCH ×2 (08:17→17:57)
[2022-07-25] MEDS: DOCUSATE SODIUM/SENNA 50/8.6MG TAB PO SCH ×2 (08:17→22:43)
[2022-07-25] MEDS: FLUTICASONE PROPIONATE NA SPR 16 GM BTL SCH (08:17)
[2022-07-25 08:22] LABS: Hemoglobin 14.4 g/dl (12.0-16.0); Mean Corpuscular Hemoglobin 31.9 pg (25.0-34.0); Mean Corpuscular Hgb Conc 33.5 g/dL (32.0-36.0); Mean Corpuscular Volume 95.1 fL (80.0-100.0); Mean Platelet Volume 8.6 fL (9.4-12.3); Platelet Count 269 K/uL (130-400); RDW Coefficient of Variation 13.6 % (11.5-14.5); RDW Standard Deviation 47.6 fL (36.4-46.3); Red Blood Count 4.52 M/uL (3.93-5.22); White Blood Count 11.85 K/ul (4.8-10.8)
--- NOTE | 2022-07-25 08:35 | Hospitalist Progress Note ---
Date of Service July 25, 2022 Assessment & Plan (1) Lumbar disc herniation with radiculopathy: Plan: No red flag/cauda equina currently but acute worsening of chronic back pain with R sided weakness and radicular symptoms. Prior back surgery with Dr Ferguson years ago, has been getting injections for her back as outpatient , as much as allowed by insurance MRI Lumbar Spine with foraminal disc herniation L3-L4 on the right with associated facet hypertrophy. Per Dr Ferguson, also with obvious compression of the exiting L3 nerve root on the right. Ortho spine consulted-- Dr Ferguson NPO for urgent lumbar decompression L4-L4 with fusion, complete L3-L4 facetecto my on the right to safely decompress exiting nerve root and addrress disc herniation and remove instrumentation L4-L5 and extend fusion L3-L4 WBC elevation 16.7k likely from methylprednisolone given in ER 125mg x 1. Afebrile --> down to 11.8 on repeat Added NSS for IVF while NPO, slightly dehydrated on exam Pain control * had been requiring IV dilaudid every 4 hours without control, decreased to Q2h frequency and reporting inadequate control at end of interval * Discussed with patient and ordered for Dilaudid MECHANICAL ENGINEERING INTERN .5mg/hr continuous with 0.1mg breakthrough dosing to allow for more continuous control/prevent excessive spikes in her pain -- reported improvement and will continue with increased lyrica to 150mg TID given radicular nature of pain. * Did get does of steroids in ER, will defer to Dr Ferguson regarding additional dosing * Continue lidocaine patches/PO hydrocodine-tylenol as taking at home * Ativan resumed for anxiety however patient reports not needing to take much at home Aggressive bowel regimen --> miralax TID (refused this morning), senna/docusate. Refused enema. Passing lots of gas, however no BM just yet Having some urinary retention (had st cath in ER) --> asked RN to bladder scan, ~800. Order for gutierrez catheter placed Initial UA w/o infection but does note some blood, ?from trauma from st cath. If any sx/repeat UA after gutierrez placed Ambulation as tolerated however patient reporting Dr Ferguson said bedrest PT/OT consulted for after surgery EKG with some lateral T wave inversions, but patient without symptoms chest pain/shortness of breath. Given radicular symptoms/urgent nature, rec proceeding with surgery given risk/benefits but would rec f/u with PCP for continued monitoring/ref to cards outpatient Monitor labs in AM (2) Lumbar stenosis with neurogenic claudication: (3) Hypoxia: Plan: Hypoxic with pain medications, no SOB/CP reported CXR negative On RA this morning but supplemental O2 with pain medication as needed -- every day smoker, titrate to maintain saturations changed pain medication to MECHANICAL ENGINEERING INTERN with lower baseline rate to prevent acute drops Continue albuterol, fluticasone Supplemental O2 as needed w/ pain meds (4) DM2 (diabetes mellitus, type 2): Plan: Normally on Semaglutide, already had her dose this week A1c 6.3 on check BSG AC/HS, Q6 when NPO at midnight BSGs have been acceptable Monitor post-op w/ decadron, expect to rise Monitor (5) Hyperlipidemia: Plan: Continue statin (6) Anxiety: Plan: -Continue lyrica , increased for pain control as above Resumed ativan as needed given reported anxiety and to prevent withdrawal and very anxious about procedure, will need to inquire frequency she takes at home took x 1 dose this morning 07/25 (7) Sleep apnea: Plan: HS CPAP ordered -- has home machine (8) Rheumatoid arthritis: Plan: Continue Rinvoq -- non formulary -- would place on hold during surgery, would hold to ensure good wound healing post-op may contribute to increased pain while off , see above DVT prophylaxis -- SCDs, leslie hose chemical deferred given upcoming surgery (9) Lumbar disc disease: (10) Urinary retention: Plan: likely 2nd to constipation bladder scanned as above, >800cc gutierrez placed, repeat urine cx for completeness Plan continued inpatient stay NPO for surgery this afternoon Continue MECHANICAL ENGINEERING INTERN for pain control, bowel regimen Place gutierrez for urinary retention, check urine/cx Admission and Anticipated Discharge Date Admission Date: July 24, 2022 Subjective eval this morning, improvement in control of pain with dilaudid MECHANICAL ENGINEERING INTERN pain 8/10 with medication, 10/10 if not comfortable in bed has some worsening numbness down the back of her right calf today awaiting surgery anxious, given dose of ativan which seems to help some, anxious about not knowing the time for surgery unsure if she has voided but possibly overnight. prior st cath asking RN to obtain bladder scan, will place gutierrez if needed as patient reports nataly not able to work for her no fever/chills, no chest pain or shortness ofbreath passing gas but no BM, got up to side of bed this morning but unable to get onto bedside commode Will call OR for time to see as patient/ at bedside believe was going to be afternoon. Mouth dry, req oral swabs ~2-3pm Review of Systems Review of Systems: All systems reviewed & are unremarkable except as noted in HPI & below Physical Exam Physical Exam: General: WD/WN obese female, NAD but does appear mildly uncomfortable with movements in bed but much more comfortable than day prior HEENT: head normocephalic, atraumatic, mm slightly dry, trachea midline Resp: CTAB, diminished in the bases, no wheezing/crackles, on room air CV: RRR, no m/r/g, no calf edema/tenderness to palpation but reporting some numbness to posterior R leg, no pitting edema or increased circumference compared to the left GI: +BS (more active BS today), softer but still distended, no guarding/rigidity ; no gutierrez MSK/Neuro: decreased DTS on the right compared to left, decreased strength right quad 4/5 compared to right 5/5, slight decrease in plantar flexion as well, slightly decreased sensation to light touch increased pain with movement/twisting in bed, increased pain reported with straight leg follows commands, no slurred speech Psych: aox3, cooperative, anxious about surgery- just got dose of ativan Results & Data Results & Data ([facility]) Vital Signs (Past 12 Hours) Vital Signs Temp Pulse Resp BP Pulse Ox O2 Del Method O2 Flow Rate 07/25/22 08:14 36.7 C 71 18 138/76 91 Room Air 07/25/22 03:17 36.8 C 60 14 122/77 91 CPAP 07/24/22 21:04 37 C 64 12 134/73 93 Nasal Cannula 2 Laboratory Results 07/25/22 07/25/22 07/25/22 Range/Units 08:01 08:01 05:39 WBC 11.85 H (4.8-10.8) K/ul RBC 4.52 (3.93-5.22) M/uL Hgb 14.4 (12.0-16.0) g/dl Hct 43.0 (34.1-44.9) % MCV 95.1 (80.0-100.0) fL MCH 31.9 (25.0-34.0) pg MCHC 33.5 (32.0-36.0) g/dL RDW Std Deviation 47.6 H (36.4-46.3) fL RDW Coeff of Venu 13.6 (11.5-14.5) % Plt Count 269 (130-400) K/uL MPV 8.6 L (9.4-12.3) fL Sodium 137 (136-145) mmol/L Potassium 4.0 (3.5-5.1) mmol/L Chloride 101 (98-107) mmol/L Carbon Dioxide 30 (21-32) mmol/L Anion Gap 6 (3-11) BUN 23 (6-23) mg/dl Creatinine 0.85 (0.6-1.2) mg/dl Est Cr Clr Drug Dosing 70.6 ml/min Est GFR ( Amer) 85.1 ml/min Est GFR (Non-Af Amer) 73.4 ml/min BUN/Creatinine Ratio 27.1 H (10-20) Glucose 84 (70-99(Fasting)) mg/dl POC Glucose 98 (70-99) mg/dl Calcium 9.5 (8.5-10.1) mg/dl Magnesium 2.6 H (1.7-2.4) mg/dl Blood Type Antibody Screen 07/24/22 07/24/22 07/24/22 Range/Units 21:18 20:28 17:22 WBC (4.8-10.8) K/ul RBC (3.93-5.22) M/uL Hgb (12.0-16.0) g/dl Hct (34.1-44.9) % MCV (80.0-100.0) fL MCH (25.0-34.0) pg MCHC (32.0-36.0) g/dL RDW Std Deviation (36.4-46.3) fL RDW Coeff of Venu (11.5-14.5) % Plt Count (130-400) K/uL MPV (9.4-12.3) fL Sodium (136-145) mmol/L Potassium (3.5-5.1) mmol/L Chloride (98-107) mmol/L Carbon Dioxide (21-32) mmol/L Anion Gap (3-11) BUN (6-23) mg/dl Creatinine (0.6-1.2) mg/dl Est Cr Clr Drug Dosing ml/min Est GFR ( Amer) ml/min Est GFR (Non-Af Amer) ml/min BUN/Creatinine Ratio (10-20) Glucose (70-99(Fasting)) mg/dl POC Glucose 104 H 107 H (70-99) mg/dl Calcium (8.5-10.1) mg/dl Magnesium (1.7-2.4) mg/dl Blood Type A Positive Antibody Screen NEGATIVE 07/24/22 07/24/22 Range/Units 12:07 07:44 WBC (4.8-10.8) K/ul RBC (3.93-5.22) M/uL Hgb (12.0-16.0) g/dl Hct (34.1-44.9) % MCV (80.0-100.0) fL MCH (25.0-34.0) pg MCHC (32.0-36.0) g/dL RDW Std Deviation (36.4-46.3) fL RDW Coeff of Venu (11.5-14.5) % Plt Count (130-400) K/uL MPV (9.4-12.3) fL Sodium (136-145) mmol/L Potassium (3.5-5.1) mmol/L Chloride (98-107) mmol/L Carbon Dioxide (21-32) mmol/L Anion Gap (3-11) BUN (6-23) mg/dl Creatinine (0.6-1.2) mg/dl Est Cr Clr Drug Dosing ml/min Est GFR ( Amer) ml/min Est GFR (Non-Af Amer) ml/min BUN/Creatinine Ratio (10-20) Glucose (70-99(Fasting)) mg/dl POC Glucose 104 H (70-99) mg/dl Calcium (8.5-10.1) mg/dl Magnesium 2.1 (1.7-2.4) mg/dl Blood Type Antibody Screen PG Care Time/CCT Total # of Minutes Spent Total Time Spent with Patient: Total time spent is greater than 50% in coordination of care (as documented) at patient's floor/unit and/or counseling patient: Coding Level of Care Code 31383 Subseq Hosp Care Lvl 3 Diagnoses Lumbar disc herniation with radiculopathy M51.16 Lumbar stenosis with neurogenic claudication M48.062 Hypoxia R09.02 DM2 (diabetes mellitus, type 2) E11.9 Hyperlipidemia E78.5 Anxiety F41.9 Sleep apnea G47.30 Rheumatoid arthritis M06.9 Lumbar disc disease M51.9 Urinary retention R33.9
[2022-07-25 08:56] LABS: BUN Creatinine Ratio 27.1 (10-20); Calcium 9.5 mg/dl (8.5-10.1); Creatinine Clr Calc Pharmacy 70.6 ml/min; Est GFR (African American) 85.1 ml/min; Est GFR (Non-African American) 73.4 ml/min; Magnesium 2.6 mg/dl (1.7-2.4)
--- NOTE | 2022-07-25 09:39 | History & Physical Bridge Note ---
Date of Service July 25, 2022 History & Physical Bridge Note I have examined the patient, reviewed the History & Physical and in the interval since the performance of the History & Physical I have noted the following changes of clinical significance: no changes noted Patient continues have severe L3 radiculopathy. She has is experiencing progressive weakness to the right quadricep consistent with L3 nerve compression. She is now on Dilaudid NET C DEVELOPER to control her symptoms. She is unable to ambulate. Subsequently recommending emergent decompression and fusion to hold the progression of nerve damage and to address her pain and begin therapy as soon as possible.
[2022-07-25] MEDS ORDERED: SODIUM CHLORIDE 0.9% 1000ML 1,000 ML IV SCH (09:45)
--- NOTE | 2022-07-25 12:33 | Electrocardiogram Report ---
Test Reason : Blood Pressure : / mmHG Vent. Rate : 067 BPM Atrial Rate : 067 BPM P-R Int : 154 ms QRS Dur : 084 ms QT Int : 398 ms P-R-T Axes : 120 -14 146 degrees QTc Int : 420 ms Unusual P axis, possible ectopic atrial rhythm Low voltage QRS Nonspecific T wave abnormality Lateral leads Abnormal ECG When compared with ECG of 18-JUL-2021 11:38, Ectopic atrial rhythm has replaced Sinus rhythm Confirmed by Noel Chiang ([id number]) on 07/25/2022 12:33:32 PM Referred By: REFERRED SELF Confirmed By:Noel Chiang
[2022-07-25] MEDS ORDERED: PROPOFOL IV EMULSION 10 MG/ML 20 ML VIAL IV ONE (13:04)
[2022-07-25] MEDS ORDERED: LIDOCAINE 2% MPF LOCAL 5 ML VIAL INFIL ONE (13:04)
[2022-07-25] MEDS ORDERED: fentaNYL citrate 100 MCG/2 ML VIAL ONE ×2 (13:04→15:26)
[2022-07-25] MEDS ORDERED: MIDAZOLAM HCL 1 MG/ML 2ML VIAL ONE (13:04)
[2022-07-25] MEDS ORDERED: ONDANSETRON INJ 2 MG/ML 2 ML VIAL ONE ×2 (13:04→15:25)
[2022-07-25] MEDS ORDERED: ROCURONIUM BROMIDE 10 MG/ML 5 ML VIAL IV ONE (13:04)
[2022-07-25] MEDS ORDERED: DEXAMETHASONE SOD INJ 4 MG/ML VIAL ONE ×2 (13:04→15:25)
[2022-07-25] MEDS ORDERED: GLYCOPYRROLATE 0.2 MG/ML VIAL ONE ×2 (13:19→15:38)
[2022-07-25] MEDS ORDERED: NEOSTIGMINE METHYLSULFATE 1 MG/ML 10ML VIAL ONE ×2 (13:19→15:38)
--- NOTE | 2022-07-25 13:28 | History & Physical Bridge Note ---
Date of Service July 25, 2022 History & Physical Bridge Note I have examined the patient, reviewed the History & Physical and in the interval since the performance of the History & Physical I have noted the following changes of clinical significance: no changes noted Decompression and fusion L3-L4 hardware removal L4-L5
--- NOTE | 2022-07-25 13:33 | Anesthesiology Consultation ---
Date of Service July 25, 2022 Assessment & Plan (1) Encounter for pre-operative examination: History Surgery Operation Date: 07/25/22 07:00 Proposed Procedures p L3-L4 Decompression Fusion, L4-L5 Hardware Removal - Kavon Ferguson DO Height/Weight Height: 5 ft 2 in Weight: 87.7 kg Allergies Allergy/AdvReac Type Severity Reaction Status Date / Time No Known Allergies Allergy Mild Verified 07/23/22 15:50 Medications Home Medications Medication Instructions Recorded Confirmed Last Taken lorazepam 1 mg tablet 1 mg PO Q6H PRN Anxiety 06/28/18 07/23/22 07/29/21 magnesium hydroxide 400 mg/5 mL 30 ml PO DAILY PRN Stomach Upset 06/28/18 07/23/22 08/09/21 oral suspension (Milk of Magnesia) celecoxib 200 mg capsule (Celebrex) 200 mg PO DAILY PRN Pain 11/02/19 07/23/22 07/29/21 cholecalciferol (vit D3) 5,500 1 tab PO QAM 07/17/21 07/23/22 08/11/21 08:00 unit-vit K2 200 mcg tablet cyanocobalamin (vitamin B-12) 1,000 mcg PO QAM 07/17/21 07/23/22 08/11/21 08:00 1,000 mcg tablet (Vitamin B-12) pregabalin 100 mg capsule (Lyrica) 100 mg PO TID 07/17/21 07/23/22 08/11/21 18:00 upadacitinib 15 mg tablet,extended 15 mg PO HS 07/17/21 07/23/22 08/11/21 19:00 release 24 hr (Rinvoq) hydrocodone 10 mg-acetaminophen 1 tab PO Q6H PRN Pain 12/16/21 07/23/22 Unknown 325 mg tablet albuterol sulfate 90 mcg/actuation 2 puff inhalation QID PRN 03/18/22 07/23/22 Unknown aerosol inhaler Shortness Of Breath Or Wheezing fluticasone propionate 50 2 spray intranasal DAILY 03/18/22 07/23/22 Unknown mcg/actuation nasal spray,suspension (Allergy Relief (fluticasone)) semaglutide 1 mg/dose (4 mg/3 mL) 1 mg (0.75 mL) subcut WK 4 weeks 07/03/22 07/23/22 Unknown subcutaneous pen injector (Ozempic) #21 mL zinc acetate 50 mg (zinc) capsule 50 mg PO DAILY 07/23/22 07/23/22 Unknown Active Medications Generic Name Dose Route Start Last Admin Trade Name Freq PRN Reason Stop Dose Admin Hydrocodone Bitart/Acetaminophen 1 tab 07/23/22 17:40 07/24/22 13:27 Hydrocodone/Acetaminophen 10/325 Tab PO 08/06/22 17:39 1 tab Q6H PRN Administration Pain (1,2,3) Fluticasone Propionate 2 sprays 07/24/22 09:00 07/25/22 08:17 Fluticasone Propionate Na Spr 16 Gm Btl NA 08/23/22 08:59 2 sprays DAILY HENOK Administration Hydromorphone HCl 30 mg 07/24/22 13:10 07/24/22 14:16 Hydromorphone Senior Construction Manager 30 Mg/30 Ml IV 08/07/22 13:09 30 mg PRN PRN Administration BLOOD BANK ASSISTANT Pain Titration Protocol Sodium Chloride 1,000 mls @ 15 mls/hr 07/24/22 13:15 07/25/22 11:25 Nss 1000ml IV 08/07/22 13:11 15 mls/hr .Q24H HENOK Infusion Sodium Chloride 1,000 mls @ 80 mls/hr 07/25/22 09:45 07/25/22 11:25 Nss 1000ml IV 08/24/22 09:44 80 mls/hr .[id number] HENOK Infusion Insulin Aspart 0 units 07/25/22 07:15 07/25/22 12:52 Insulin Aspart Per Unit SC 08/23/22 11:29 Not Given Q6 HENOK Lidocaine 1 patch 07/24/22 21:00 07/24/22 20:25 Lidocaine 5% 1 Patch TD 08/23/22 20:59 Not Given HS HENOK Lorazepam 1 mg 07/24/22 14:33 07/25/22 09:13 Lorazepam 1 Mg Tab PO 08/23/22 14:32 1 mg Q6H PRN Administration Anxiety Miscellaneous 1 each 07/24/22 09:00 07/25/22 08:09 Remove Lidoderm Patch N/A 08/23/22 08:59 Not Given 0900 HENOK Polyethylene Glycol 17 gm 07/24/22 14:00 07/25/22 08:17 Polyethylene (Miralax) 17 Gm Pack PO 08/23/22 13:59 Not Given TID HENOK Pregabalin 150 mg 07/23/22 21:00 07/25/22 08:16 Pregabalin 150 Mg Cap PO 08/22/22 20:59 150 mg TID HENOK Administration Senna/Docusate Sodium 1 tab 07/24/22 09:15 07/25/22 08:17 Docusate Sodium/Senna 50/8.6mg Tab PO 08/23/22 09:14 1 tab QAM HENOK Administration NPO Date Last Intake of Fluids: 07/24/22 Time Last Intake of Fluids: 23:00 Date Last Intake of Solids: 07/24/22 Time Last Intake of Solids: 19:00 Past Medical History Medical History Anxiety Chronic back pain with radiculopathy Degenerative disc disease DM2 (diabetes mellitus, type 2) History of COVID-19 Dx Spring 2019 > symptoms at time of sinus headache, loss of taste and smell > symptoms resolved Obesity Osteoarthritis Rheumatoid arthritis Sleep apnea CPAP (compliant) Spinal stenosis Past Family History Family History Grandmother Family history of diabetes mellitus PATERNAL Grandfather Family hx of colon cancer PATERNAL Grandfather (Paternal) Colorectal cancer Father Myocardial infarction Denies family history of Ovarian cancer Prostate cancer Breast cancer Past Surgical History Surgical History History of appendectomy History of bilateral tubal ligation History of colonoscopy History of dilatation and curettage X2 History of esophagogastroduodenoscopy (EGD) History of lumbar fusion L4-L5 (02/28/16): MAC #3, ETT #7.0 with Grade 1 view History of meniscectomy of left knee History of tooth extraction WTE History of total abdominal hysterectomy and bilateral salpingo-oophorectomy History of total left knee replacement Left TKA (01/14/19): SAB + PNB at [facility] Social History Smoking Status: Current every day smoker tobacco type: cigarettes Smoking cigarettes per day: 5-10 Do You Dip or Chew Tobacco: No Hx Alcohol Use: No Hx Substance Use: No substance use type: painkillers Substance Use Type Other:: hydrocodone , lyrica Last Used Substance: Just Prior to Arrival Physical Exam Vital Signs Last Vital Signs Temp 36.9 C 07/25/22 13:12 Pulse 71 07/25/22 13:12 Resp 18 07/25/22 13:12 BP 108/76 07/25/22 13:12 Pulse Ox 95 07/25/22 13:12 O2 Del Method 07/25/22 13:12 O2 Flow Rate 2 07/24/22 21:04 Testing Laboratory Results 07/25/22 08:01 07/25/22 08:01 PT 10.6 Seconds (9.0-12.0) 07/24/22 07:44 INR 1.0 (0.9-1.1) 07/24/22 07:44 Hemoglobin A1c 6.3 % (4.5-5.6) H 07/24/22 07:44 Urine Color Yellow 07/23/22 18:00 Urine Appearance Clear (Clear) 07/23/22 18:00 Urine pH 7.5 (4.5-7.5) 07/23/22 18:00 Ur Specific [place] 1.009 (1.000-1.030) 07/23/22 18:00 Urine Protein Negative (Negative) 07/23/22 18:00 Urine Glucose (UA) Negative (Negative) 07/23/22 18:00 Urine Ketones Negative (Negative) 07/23/22 18:00 Urine Nitrite Negative (Negative) 07/23/22 18:00 Ur Leukocyte Esterase Negative (Negative) 07/23/22 18:00 Urine WBC (Auto) 0 /hpf (0-5) 07/23/22 18:00 Urine RBC (Auto) 5-10 /hpf (0-4) H 07/23/22 18:00 U Hyaline Cast (Auto) 0 /lpf (0-5) 07/23/22 18:00 U Epithel Cells (Auto) 0-5 /lpf (0-5) 07/23/22 18:00 Urine Bacteria (Auto) Negative (Negative) 07/23/22 18:00 Blood Type A Positive 07/24/22 21:18 Antibody Screen NEGATIVE 07/24/22 21:18 07/25/22 07/25/22 07/25/22 13:02 12:20 05:39 POC Glucose 85 91 98 Electrocardiogram Date: 07/25/22 Unusual P axis, possible ectopic atrial rhythm Low voltage QRS Nonspecific T wave abnormality Lateral leads Abnormal ECG When compared with ECG of 18-JUL-2021 11:38, Ectopic atrial rhythm has replaced Sinus rhythm Chest X-Ray Date: 07/23/22 IMPRESSION: No acute cardiopulmonary findings.
[2022-07-25] MEDS ORDERED: ceFAZolin 330 MG/ML 1 GM VIAL ONE (13:40)
[2022-07-25] MEDS ORDERED: BUPIVACAINE/EPINEPHRINE 0.25% 1:200,000 30 ML VIAL ONE (13:40)
[2022-07-25] MEDS ORDERED: ceFAZolin 2000MG 2,000 MG/15 ML SYR IV ONE (13:43)
[2022-07-25] MEDS ORDERED: ONDANSETRON INJ 2 MG/ML 2 ML VIAL IV PRN ×2 (13:47→17:50)
[2022-07-25] MEDS ORDERED: ePHEDrine sulfate 50 MG/ML AMP IV PRN (13:47)
[2022-07-25] MEDS ORDERED: ATROPINE SULFATE 0.1 MG/ML 10ML SYR IV PRN (13:47)
[2022-07-25] MEDS ORDERED: ceFAZolin 2,000 MG/15 ML IV PUSH IV ONE (13:48)
[2022-07-25] MEDS ORDERED: KETAMINE 50 MG/5 ML SYRINGE ONE (14:03)
[2022-07-25] MEDS ORDERED: FLOSEAL HEMOSTATIC MATRIX 10ML TOP ONE (14:36)
[2022-07-25] MEDS ORDERED: ePHEDrine sulfate 50 MG/ML AMP ONE (14:47)
--- NOTE | 2022-07-25 15:52 | Operative Report ---
Post Operative Report Pre & Post Diagnosis Operation Date: 07/25/22 07:00 Pre-Op Diagnosis: Lumbar Stenosis with Neurogenic Claudication with foraminal disc herniation Post-Op Diagnosis: Same I identified the patient and participated in the time-out.: Yes Procedure Operation Date: 07/25/22 07:00 Actual Procedures #1 removal of posterior instrumentation L4-L5. #2 exploration of fusion L4-5. #3 lumbar decompression with bilateral medial facetectomies and foraminotomies as well as removal of foraminal disc herniation L3-L4. #4 posterior spinal fus ion L3-L4. #5 placement posterior instrumentation L3-L5. #6 interbody fusion L3-L4. #7 placement of Spira 13 x 26 mm cage at L3-L4. #8 placement locally harvested morselized autograft and posterior gutters. Midline placement I factor model V toss interbody space and posterior gutters. Surgeon Kavon Ferguson, DO Retail Customer Service Representative Ean Moore Estimated Blood Loss 50 Findings See Below The patient is 5 foot 2 inches tall weighing over 87 kg with a BMI in excess of 35. The patient's body habitus did contribute to significant technical difficulty requiring her deepest retractors and longer instruments in order to perform her procedure. This at least 50% increased operative time. Specimens None Indications This is a 61-year-old female who presents emergency room with severe right leg pain and inability to ambulate. Imaging demonstrates evidence of foraminal stenosis secondary to disc herniation and facet arthropathy. In light of her progressive neuro deficit and inability to ambulate we recommended emergent decompression and fusion to prevent permanent nerve deficit. Description of Procedure Patient was met with identified informed consent obtained. Patient was then taken to the operative suite underwent a patient placed in a prone position the [facility] top Joshua frame. All bony prominences well-padded eyes inspected to ensure no external pressure placed upon them. This point lumbar spine was prepped and draped in normal sterile fashion. Sharp dissection with the ass istance of Bovie cautery was performed down to and exposing the lamina transverse processes of L3 and instrumentation at L4-L5 bilaterally. I then proceeded with the hardware bilaterally explore the fusion mass noting it to be mature and intact. Then formed a complete laminectomy of L3 including bilateral medial facetectomies and foraminotomies and requiring complete facetectomy on the right to expose a severely compressed L3 nerve root and remove the disc herniation underneath the root. After this complete pedicle screws were placed at L3 L4-5 bilaterally with assistance of fluoroscopy and the properly sized anneliese placed. By way of a transit foraminal approach and right complete discectomy of L3-L4 was performed endplates curetted to subcortical bleeding bone and a 13 x 26 mm spiral cage with I factor tapped in position. Rods were then locked into final position bilaterally. The transverse processes of L3-L4 were burred to subcortical bleeding bone. I factor model V toss and locally harvested morselized autograft was placed in the posterior gutters. 15 round EMILIA drain inserted. The incision was then closed with 1 Vicryl in the fascia 2-0 Vicryl subcutaneously and 4 Monocryl for final skin closure. Steri-Strip sterile dressings placed. Patient waken taken to PACU stable condition. Please note spinal cord monitoring was utilized at the procedure no changes noted. Lastly Ean Moore was present entire surgery involved the patient positioning complex portions of the surgery and final skin closure. I attest to the content of the Intraoperative Record and any orders documented therein. Any exceptions are noted below.
--- NOTE | 2022-07-25 16:16 | Fluoroscopy Report ---
FL lumbar spine 2-3V CLINICAL HISTORY: L3-4 DFI/L4-5 RH TECHNIQUE: 2 views were obtained with the C-arm in the OR with the above procedure. Total fluoroscopy time was 10.2 seconds. Comparison: None available at the time of this dictation. FINDINGS/IMPRESSION: Intraoperative images were obtained of L3 L5 discectomy and fusion and hardware removal Please correlate with intraoperative fluoroscopy and operative report. ACT 112: Negative or not required by law. Electronically signed by: Jey López M.D. 07/25/2022 4:14 PM
[2022-07-25] MEDS: fentaNYL citrate 100 MCG/2 ML VIAL IV PRN ×4 (16:38→16:53)
--- NOTE | 2022-07-25 16:57 | Anesthesiology Progress Note ---
Date of Service July 25, 2022 Anesthesia Post Procedure Vital Signs Vital Signs: Temp Pulse Resp BP Pulse Ox O2 Del Method O2 Flow Rate 07/25/22 16:45 64 16 136/87 96 Nasal Cannula 4 07/25/22 16:35 64 16 140/81 95 Oxymask 5 07/25/22 16:25 66 16 151/80 H 95 Oxymask 5 07/25/22 16:19 36.3 C L 85 16 129/82 95 Oxymask 5 07/25/22 13:12 36.9 C 71 18 108/76 95 Room Air 07/25/22 08:14 36.7 C 71 18 138/76 91 Room Air 07/25/22 03:17 36.8 C 60 14 122/77 91 CPAP 07/24/22 21:04 37 C 64 12 134/73 93 Nasal Cannula 2 07/24/22 18:12 67 15 90 Nasal Cannula 2 Pain Intensity Back: Pain Intensity: 7 Transfer of Care Handoff Completed per policy Notes Mental Status: alert / awake / arousable Patient Amnestic to Procedure: Yes Nausea / Vomiting: adequately controlled Pain: adequately controlled Airway Patency, RR, SpO2: stable & adequate BP & HR: stable & adequate Hydration State: stable & adequate Anesthetic Complications: no major complications apparent
[2022-07-25] MEDS: HYDROmorphone INJ 1 MG/ML SYRINGE IV PRN ×6 (17:00→19:40)
[2022-07-25] MEDS ORDERED: METOCLOPRAMIDE HCL INJ 5 MG/ML 2 ML VIAL IV PRN (17:50)
[2022-07-25] MEDS ORDERED: ALUMINUM/MAGNESIUM SUSP 30 ML UDC PO PRN (17:50)
[2022-07-25] MEDS ORDERED: hydrOXYzine HCl 25 MG TAB PO PRN (17:50)
[2022-07-25] MEDS ORDERED: ACETAMINOPHEN 1,000 MG/100 ML VIAL IV PRN (17:50)
[2022-07-25] MEDS ORDERED: DO NOT ADMINISTER FLU VACCINE PRN (17:50)
[2022-07-25] MEDS ORDERED: PROMETHAZINE HCL 12.5 MG in SODIUM CHLORIDE 0.9% 50 ML IV PRN (17:50)
[2022-07-25] MEDS ORDERED: MAGNESIUM HYDROXIDE SUSP 30 ML UDC PO PRN (17:50)
[2022-07-25] MEDS ORDERED: ONDANSETRON 4 MG OD TAB PO PRN (17:50)
[2022-07-25] MEDS ORDERED: SOD PHOSPHATE/SOD BIPHOSPHATE ENEMA 132 ML BTL PR PRN (17:50)
[2022-07-25] MEDS ORDERED: bisacodyL 10 MG SUPP PR PRN (17:50)
[2022-07-25] MEDS ORDERED: LORazepam 0.5 MG TAB PO PRN (17:50)
[2022-07-25] MEDS ORDERED: diphenhydrAMINE Capsule 25 MG CAP PO PRN (17:50)
[2022-07-25] MEDS ORDERED: HYDROmorphone INJ 0.5 MG/0.5 ML SYR IV PRN (17:50)
[2022-07-25] MEDS ORDERED: NALOXONE HCL 0.4 MG/1 ML VIAL/CARP IV PRN (17:50)
[2022-07-25] MEDS ORDERED: LORazepam 0.5 MG in SYRINGE 0 ML IV PRN (17:50)
[2022-07-25] MEDS ORDERED: PHARMACY GLYCEMIC MGMT CONSULT PRN (17:50)
[2022-07-25] MEDS ORDERED: ACETAMINOPHEN 500 MG TAB PO PRN (17:50)
[2022-07-25] MEDS ORDERED: DO NOT ADMINISTER PNEUMOCOCCAL VACCINE PRN (17:50)
[2022-07-25] MEDS ORDERED: FAMOTIDINE 20 MG TAB PO PRN (17:50)
[2022-07-25] MEDS: SODIUM CHLORIDE 0.9% 1000ML 1,000 ML IV SCH ×2 (17:57→18:27)
[2022-07-25] MEDS ORDERED: CARBOHYDRATES FOR HYPOGLYCEMIA PO PRN (18:30)
[2022-07-25] MEDS ORDERED: GLUCOSE 40% GEL 15 GM TUBE PO PRN (18:30)
[2022-07-25] MEDS ORDERED: GLUCOSE 10 TAB/TUBE PO PRN (18:30)
[2022-07-25] MEDS ORDERED: GLUCAGON FOR INJ 1 MG VIAL IM PRN (18:30)
[2022-07-25] MEDS ORDERED: DEXTROSE 50% 50 ML SYRINGE IV PRN (18:30)
[2022-07-25 18:44] LABS: Appearance Urine Clear (Clear); Bacteria Urine Automated Negative (Negative); Bilirubin Urine Negative (Negative); Blood Urine 3+ (Negative); Color Urine Yellow; Glucose Urine UA Negative (Negative); Ketones Urine Negative (Negative); Leukocyte Esterase Urine Negative (Negative); Nitrite Urine Negative (Negative); Protein Urine Negative (Negative); Specific Gravity Urine 1.013 (1.000-1.030); Urobilinogen Urine Negative (Negative); pH Urine 5.5 (4.5-7.5)
--- NOTE | 2022-07-25 19:49 | Pharmacy Report ---
Pharmacy Glycemic Short Note 2 - Date of Service July 25, 2022 - Glycemic Short BSG Results (Last 24 hours): 07/24/22 07/25/22 07/25/22 20:28 05:39 08:01 Glucose 84 POC Glucose 104 H 98 07/25/22 07/25/22 07/25/22 12:20 13:02 16:20 Glucose POC Glucose 91 85 100 H 07/25/22 18:04 Glucose POC Glucose 119 H OUTPATIENT ANTIDIABETIC REGIMEN: * Ozempic 1 mg SC weekly on Fridays HbA1c: 6.3% (07/24/22) ASSESSMENT: * BC is a 61 year old female POD #0 s/p L3-4 decompression fusion * Received 12 mg IV dexamethasone in OR * Preoperatively, BSGs very well-controlled without insulin (ranging 84-100 mg/dL) * Will add on conservative Novolog in light of IV dexamethasone, hold off on basal at this time PLAN FOR INPATIENT GLYCEMIC CONTROL: * Basal insulin * hold * Bolus insulin * NovoLog per scale ACHS or Q6hrs while NPO * Goal Range: Low 120 mg/dL - High 150 mg/dL * Correction Factor: 35 mg/dL/unit * Nutritional / Prandial insulin per carb ratio of 1 unit per 12 grams CHO consumed
[2022-07-25] MEDS: ceFAZolin 2000MG 2,000 MG/15 ML SYR IV SCH (22:41)
[2022-07-25] MEDS: oxyCODONE HCL IR 5 MG TAB (IMMEDIATE RELEASE) PO PRN (22:42)
[2022-07-26] MEDS: HYDROmorphone INJ 1 MG/ML SYRINGE IV PRN ×3 (00:36→17:11)
[2022-07-26] MEDS: SODIUM CHLORIDE 0.9% 1000ML 1,000 ML IV SCH (04:51)
[2022-07-26] MEDS: POLYETHYLENE (MIRALAX) 17 GM PACK PO SCH ×3 (05:52→18:09)
[2022-07-26] MEDS: ceFAZolin 2000MG 2,000 MG/15 ML SYR IV SCH (05:57)
[2022-07-26] MEDS: oxyCODONE HCL IR 5 MG TAB (IMMEDIATE RELEASE) PO PRN ×3 (05:57→20:47)
[2022-07-26 07:09] LABS: BUN Creatinine Ratio 16.9 (10-20); Creatinine Clr Calc Pharmacy 67.4 ml/min; Est GFR (African American) 80.5 ml/min; Est GFR (Non-African American) 69.5 ml/min; Potassium 3.9 mmol/L (3.5-5.1)
[2022-07-26 07:30] LABS: Basophils # (auto) 0.02 K/uL (0-0.2); Basophils % (auto) 0.1 %; Hematocrit (blood only) 35.8 % (34.1-44.9); Hemoglobin 12.3 g/dl (12.0-16.0); Immature Granulocytes % (auto) 0.6 %; Lymphocytes # (auto) 0.87 K/uL (1.2-3.4); Lymphocytes % (auto) 5.6 %; Mean Corpuscular Hemoglobin 32.1 pg (25.0-34.0); Mean Corpuscular Hgb Conc 34.4 g/dL (32.0-36.0); Mean Corpuscular Volume 93.5 fL (80.0-100.0); Mean Platelet Volume 8.9 fL (9.4-12.3); Monocytes # (auto) 1.04 K/uL (0.24-0.82); Monocytes % (auto) 6.7 %; Neutrophils # (auto) 13.42 K/uL (1.4-6.5); Platelet Count 267 K/uL (130-400); RDW Standard Deviation 44.7 fL (36.4-46.3); Red Blood Count 3.83 M/uL (3.93-5.22); White Blood Count 15.45 K/ul (4.8-10.8)
--- NOTE | 2022-07-26 07:46 | Hospitalist Progress Note ---
Date of Service July 26, 2022 Assessment & Plan (1) Lumbar disc herniation with radiculopathy: Plan: No red flag/cauda equina currently but acute worsening of chronic back pain with R sided weakness and radicular symptoms. Prior back surgery with Dr Ferguson years ago, has been getting injections for her back as outpatient , as much as allowed by insurance MRI Lumbar Spine with foraminal disc herniation L3-L4 on the right with associated facet hypertrophy. Per Dr Ferguson, also with obvious compression of the exiting L3 nerve root on the right. Ortho spine consulted-- Dr Ferguson POD# 1 s/p#1 removal of posterior instrumentation L4-L5. #2 exploration of fus ion L4-5. #3 lumbar decompression with bilateral medial facetectomies and foraminotomies as well as removal of foraminal disc herniation L3-L4. #4 posterior spinal fusion L3-L4. #5 placement posterior instrumentation L3-L5. #6 interbody fusion L3-L4. #7 placement of Spira 13 x 26 mm cage at L3-L4. #8 placement locally harvested morselized autograft and posterior gutters. Midline placement I factor model V toss interbody space and posterior gutters. with Dr Ferguson on 07/25 EBL 50cc WBC elevation 2nd to steroids given with surgery (prior elevation 07/24 after administration in ER as well, had been n/v prior to admit) Afebrile H/h 14.4/43 --> 12.3-35.8 -- acute blood loss from surgery but had been given additional IVF for dehydration as well, suspect aspect of dilutional Pain control --> much better controlled after surgery w/ IV/PO prn dosing. Continue lyrica 150mg TID. No further SHEAR SETTER required Gutierrez cath placed 07/25 for retention --> likely 2nd to constipation/immobility. Repeat UA w/o infection d/c possible later today vs tomorrow Bowel regimen --> continue to monitor on miralax TID/senna/docusate. enema prn. +BS on exam, passing lots of gas Ambulation as tolerated to assist with BM PT/OT consulted Planning to remain inpatient through the weekend and d/c early next week (2) Lumbar stenosis with neurogenic claudication: (3) DM2 (diabetes mellitus, type 2): Plan: Normally on Semaglutide, already had her dose this week A1c 6.3 on check BSG AC/HS, ISS w/ decadron post-op BSGs acceptable Consider WILLIS/ARB in f/u for renal protection pending BPs w/ pain control or in follow up outpatient (4) Hyperlipidemia: Plan: Continue statin (5) Anxiety: Plan: Continue lyrica , increased for pain control as above Resumed ativan as needed given reported anxiety and to prevent withdrawal and very anxious about procedure, will need to inquire frequency she takes at home took x 1 dose morning 07/25, available as needed (6) Sleep apnea: Plan: HS CPAP ordered -- has home machine EKG with some lateral T wave inversions, but patient without symptoms chest pain/shortness of breath --> rec f/u PCP for continued monitoring/ref to cards outpatient. (7) Rheumatoid arthritis: Plan: Continue Rinvoq -- non formulary -- would place on hold during surgery, would hold to ensure good wound healing post-op may contribute to increased pain while off , see above DVT prophylaxis -- SCDs, leslie hose chemical contraindicated in back surgery (8) Lumbar disc disease: (9) Urinary retention: Plan: likely 2nd to constipation bladder scanned as above, >800cc gutierrez placed, repeat urine cx for completeness --> no evidence for infection per protocol/voiding trial (10) Hypoxia: Plan: 2nd to opiates now after surgery, stable on RA, no hypoxia/CP/SOB CXR negative Continue albuterol, fluticasone Plan continued inpatient stay through the weekend pain control/ambulation/remove gutierrez as able monitor bowels Admission and Anticipated Discharge Date Admission Date: July 24, 2022 Subjective Attempted to see this AM, about to start PT, will revisit. Daughter Ed at bedside. Patient did however seem and report much more comfortable today, passing LOTS of gas. Will visit later this afternoon to check her status after therapy. Evaluated after therapy, stated went well. Little sore/due for pain medication rating 9/10 however MUCH improved from days prior. Discussed possibly removing gutierrez this afternoon pending ambulation status. Leg symptoms almost completely resolved, strength improved. Passing lots of gas, still no BM. Anticipating monitoring her over the weekend and possible d/c on Thursday rehab vs other pending course. Questions/concerns addressed. Left with daughter and family friends at bedside to visit at end of encounter. Review of Systems Review of Systems: All systems reviewed & are unremarkable except as noted in HPI & below Physical Exam Physical Exam: General: WD/WN obese female, appears MUCH more comfortable today, laughing, NAD HEENT: head normocephalic, atraumatic, mm IMPROVED, trachea midline Resp: CTAB, diminished in the bases, no wheezing/crackles, on room air 93% CV: RRR, no m/r/g, no calf edema/tenderness to palpation, NO FURTHER tenderness/neuropathic pain reported medial R calf, GI: +BS, NONTENDER, slight distention, no guarding/rigidity ; gutierrez draining yellow urine MSK/Neuro: improvement in strength to b/l LE, possible slightly decreased on the left compared to the right with dorsiflexion, however MUCH improved and weakness almost completely resolved dressing c/d/i, EMILIA drain in bed with ~30cc bloody drainage able to move more comfortably in bed NVI pulses palpable no calf tenderness, SCDs/leslie hose in place Psych: AOx3, cooperative and mood much improved Results & Data Results & Data ([facility]) Vital Signs (Past 12 Hours) Vital Signs Temp Pulse Resp BP Pulse Ox O2 Del Method O2 Flow Rate 07/26/22 02:39 36.7 C 74 14 125/71 90 Room Air 07/25/22 20:00 Nasal Cannula 2 07/25/22 20:44 36.5 C 77 14 125/70 91 Nasal Cannula 2 Laboratory Results 07/26/22 07/26/22 07/25/22 Range/Units 06:10 06:10 20:23 WBC 15.45 H (4.8-10.8) K/ul RBC 3.83 L (3.93-5.22) M/uL Hgb 12.3 (12.0-16.0) g/dl Hct 35.8 (34.1-44.9) % MCV 93.5 (80.0-100.0) fL MCH 32.1 (25.0-34.0) pg MCHC 34.4 (32.0-36.0) g/dL RDW Std Deviation 44.7 (36.4-46.3) fL RDW Coeff of Venu 13.0 (11.5-14.5) % Plt Count 267 (130-400) K/uL MPV 8.9 L (9.4-12.3) fL Immature Gran % (Auto) 0.6 % Neut % (Auto) 87.0 % Lymph % (Auto) 5.6 % Mcintosh % (Auto) 6.7 % Eos % (Auto) 0.0 % Baso % (Auto) 0.1 % Neut # (Auto) 13.42 H (1.4-6.5) K/uL Lymph # (Auto) 0.87 L (1.2-3.4) K/uL Mcintosh # (Auto) 1.04 H (0.24-0.82) K/uL Eos # (Auto) 0.00 (0-0.50) K/uL Baso # (Auto) 0.02 (0-0.2) K/uL Immature Gran # (Auto) 0.10 H (0.00-0.02) K/uL Sodium 138 (136-145) mmol/L Potassium 3.9 (3.5-5.1) mmol/L Chloride 102 (98-107) mmol/L Carbon Dioxide 29 (21-32) mmol/L Anion Gap 7 (3-11) BUN 15 (6-23) mg/dl Creatinine 0.89 (0.6-1.2) mg/dl Est Cr Clr Drug Dosing 67.4 ml/min Est GFR ( Amer) 80.5 ml/min Est GFR (Non-Af Amer) 69.5 ml/min BUN/Creatinine Ratio 16.9 (10-20) Glucose 111 H (70-99(Fasting)) mg/dl POC Glucose 183 H (70-99) mg/dl Calcium 9.0 (8.5-10.1) mg/dl Magnesium (1.7-2.4) mg/dl Urine Color Urine Appearance (Clear) Urine pH (4.5-7.5) Ur Specific [place] (1.000-1.030) Urine Protein (Negative) Urine Glucose (UA) (Negative) Urine Ketones (Negative) Urine Blood (Negative) Urine Nitrite (Negative) Urine Bilirubin (Negative) Urine Urobilinogen (Negative) Ur Leukocyte Esterase (Negative) Urine WBC (Auto) (0-5) /hpf Urine RBC (Auto) (0-4) /hpf U Hyaline Cast (Auto) (0-5) /lpf U Epithel Cells (Auto) (0-5) /lpf Urine Bacteria (Auto) (Negative) 07/25/22 07/25/22 07/25/22 Range/Units 18:15 18:04 16:20 WBC (4.8-10.8) K/ul RBC (3.93-5.22) M/uL Hgb (12.0-16.0) g/dl Hct (34.1-44.9) % MCV (80.0-100.0) fL MCH (25.0-34.0) pg MCHC (32.0-36.0) g/dL RDW Std Deviation (36.4-46.3) fL RDW Coeff of Venu (11.5-14.5) % Plt Count (130-400) K/uL MPV (9.4-12.3) fL Immature Gran % (Auto) % Neut % (Auto) % Lymph % (Auto) % Mcintosh % (Auto) % Eos % (Auto) % Baso % (Auto) % Neut # (Auto) (1.4-6.5) K/uL Lymph # (Auto) (1.2-3.4) K/uL Mcintosh # (Auto) (0.24-0.82) K/uL Eos # (Auto) (0-0.50) K/uL Baso # (Auto) (0-0.2) K/uL Immature Gran # (Auto) (0.00-0.02) K/uL Sodium (136-145) mmol/L Potassium (3.5-5.1) mmol/L Chloride (98-107) mmol/L Carbon Dioxide (21-32) mmol/L Anion Gap (3-11) BUN (6-23) mg/dl Creatinine (0.6-1.2) mg/dl Est Cr Clr Drug Dosing ml/min Est GFR ( Amer) ml/min Est GFR (Non-Af Amer) ml/min BUN/Creatinine Ratio (10-20) Glucose (70-99(Fasting)) mg/dl POC Glucose 119 H 100 H (70-99) mg/dl Calcium (8.5-10.1) mg/dl Magnesium (1.7-2.4) mg/dl Urine Color Yellow Urine Appearance Clear (Clear) Urine pH 5.5 (4.5-7.5) Ur Specific [place] 1.013 (1.000-1.030) Urine Protein Negative (Negative) Urine Glucose (UA) Negative (Negative) Urine Ketones Negative (Negative) Urine Blood 3+ H (Negative) Urine Nitrite Negative (Negative) Urine Bilirubin Negative (Negative) Urine Urobilinogen Negative (Negative) Ur Leukocyte Esterase Negative (Negative) Urine WBC (Auto) 1-5 (0-5) /hpf Urine RBC (Auto) 10-30 H (0-4) /hpf U Hyaline Cast (Auto) 1-5 (0-5) /lpf U Epithel Cells (Auto) 5-10 H (0-5) /lpf Urine Bacteria (Auto) Negative (Negative) 07/25/22 07/25/22 07/25/22 Range/Units 13:02 12:20 08:01 WBC (4.8-10.8) K/ul RBC (3.93-5.22) M/uL Hgb (12.0-16.0) g/dl Hct (34.1-44.9) % MCV (80.0-100.0) fL MCH (25.0-34.0) pg MCHC (32.0-36.0) g/dL RDW Std Deviation (36.4-46.3) fL RDW Coeff of Venu (11.5-14.5) % Plt Count (130-400) K/uL MPV (9.4-12.3) fL Immature Gran % (Auto) % Neut % (Auto) % Lymph % (Auto) % Mcintosh % (Auto) % Eos % (Auto) % Baso % (Auto) % Neut # (Auto) (1.4-6.5) K/uL Lymph # (Auto) (1.2-3.4) K/uL Mcintosh # (Auto) (0.24-0.82) K/uL Eos # (Auto) (0-0.50) K/uL Baso # (Auto) (0-0.2) K/uL Immature Gran # (Auto) (0.00-0.02) K/uL Sodium 137 (136-145) mmol/L Potassium 4.0 (3.5-5.1) mmol/L Chloride 101 (98-107) mmol/L Carbon Dioxide 30 (21-32) mmol/L Anion Gap 6 (3-11) BUN 23 (6-23) mg/dl Creatinine 0.85 (0.6-1.2) mg/dl Est Cr Clr Drug Dosing 70.6 ml/min Est GFR ( Amer) 85.1 ml/min Est GFR (Non-Af Amer) 73.4 ml/min BUN/Creatinine Ratio 27.1 H (10-20) Glucose 84 (70-99(Fasting)) mg/dl POC Glucose 85 91 (70-99) mg/dl Calcium 9.5 (8.5-10.1) mg/dl Magnesium 2.6 H (1.7-2.4) mg/dl Urine Color Urine Appearance (Clear) Urine pH (4.5-7.5) Ur Specific [place] (1.000-1.030) Urine Protein (Negative) Urine Glucose (UA) (Negative) Urine Ketones (Negative) Urine Blood (Negative) Urine Nitrite (Negative) Urine Bilirubin (Negative) Urine Urobilinogen (Negative) Ur Leukocyte Esterase (Negative) Urine WBC (Auto) (0-5) /hpf Urine RBC (Auto) (0-4) /hpf U Hyaline Cast (Auto) (0-5) /lpf U Epithel Cells (Auto) (0-5) /lpf Urine Bacteria (Auto) (Negative) 07/25/22 Range/Units 08:01 WBC 11.85 H (4.8-10.8) K/ul RBC 4.52 (3.93-5.22) M/uL Hgb 14.4 (12.0-16.0) g/dl Hct 43.0 (34.1-44.9) % MCV 95.1 (80.0-100.0) fL MCH 31.9 (25.0-34.0) pg MCHC 33.5 (32.0-36.0) g/dL RDW Std Deviation 47.6 H (36.4-46.3) fL RDW Coeff of Venu 13.6 (11.5-14.5) % Plt Count 269 (130-400) K/uL MPV 8.6 L (9.4-12.3) fL Immature Gran % (Auto) % Neut % (Auto) % Lymph % (Auto) % Mcintosh % (Auto) % Eos % (Auto) % Baso % (Auto) % Neut # (Auto) (1.4-6.5) K/uL Lymph # (Auto) (1.2-3.4) K/uL Mcintosh # (Auto) (0.24-0.82) K/uL Eos # (Auto) (0-0.50) K/uL Baso # (Auto) (0-0.2) K/uL Immature Gran # (Auto) (0.00-0.02) K/uL Sodium (136-145) mmol/L Potassium (3.5-5.1) mmol/L Chloride (98-107) mmol/L Carbon Dioxide (21-32) mmol/L Anion Gap (3-11) BUN (6-23) mg/dl Creatinine (0.6-1.2) mg/dl Est Cr Clr Drug Dosing ml/min Est GFR ( Amer) ml/min Est GFR (Non-Af Amer) ml/min BUN/Creatinine Ratio (10-20) Glucose (70-99(Fasting)) mg/dl POC Glucose (70-99) mg/dl Calcium (8.5-10.1) mg/dl Magnesium (1.7-2.4) mg/dl Urine Color Urine Appearance (Clear) Urine pH (4.5-7.5) Ur Specific [place] (1.000-1.030) Urine Protein (Negative) Urine Glucose (UA) (Negative) Urine Ketones (Negative) Urine Blood (Negative) Urine Nitrite (Negative) Urine Bilirubin (Negative) Urine Urobilinogen (Negative) Ur Leukocyte Esterase (Negative) Urine WBC (Auto) (0-5) /hpf Urine RBC (Auto) (0-4) /hpf U Hyaline Cast (Auto) (0-5) /lpf U Epithel Cells (Auto) (0-5) /lpf Urine Bacteria (Auto) (Negative) PG Care Time/CCT Total # of Minutes Spent Total Time Spent with Patient: Total time spent is greater than 50% in coordination of care (as documented) at patient's floor/unit and/or counseling patient: Coding Level of Care Code 18888 Subseq Hosp Care Lvl 3 Diagnoses Lumbar disc herniation with radiculopathy M51.16 Lumbar stenosis with neurogenic claudication M48.062 DM2 (diabetes mellitus, type 2) E11.9 Hyperlipidemia E78.5 Anxiety F41.9 Sleep apnea G47.30 Rheumatoid arthritis M06.9 Lumbar disc disease M51.9 Urinary retention R33.9 Hypoxia R09.02
[2022-07-26] MEDS: FLUTICASONE PROPIONATE NA SPR 16 GM BTL SCH (08:20)
[2022-07-26] MEDS: PREGABALIN 150 MG CAP PO SCH ×3 (08:21→20:47)
[2022-07-26] MEDS: INSULIN ASPART PER UNIT SC SCH ×4 (10:00→20:59)
--- NOTE | 2022-07-26 10:02 | Orthopedic Progress Note ---
Date of Service July 26, 2022 Assessment & Plan (1) Lumbar disc herniation with radiculopathy: Plan: This time initiate physical therapy monitor EMILIA output anticipate discharge home next few days. Admission and Anticipated Discharge Date Admission Date: July 24, 2022 Subjective Pain markedly improved back pain controlled Physical Exam Physical Exam: Patient is sitting up in bed. She is much more comfortable. Is good strength testing. Results & Data ([facility]) Vital Signs (Past 12 Hours) Vital Signs Temp Pulse Resp BP Pulse Ox O2 Del Method 07/26/22 02:39 36.7 C 74 14 125/71 90 Room Air
--- NOTE | 2022-07-26 15:10 | XRay Report ---
XR KUB/Abdomen 1 view CLINICAL HISTORY: eval ileus TECHNIQUE: 1 view of the abdomen was obtained. Comparison: Comparison is made to CT abdomen pelvis 07/23/2022 FINDINGS: A left lower quadrant abdominal catheter is noted. Posterior fixation hardware is seen in the lower s pine. The bowel gas pattern is nonobstructive. Multiple nondistended gas-filled loops of small bowel are noted. A moderate amount of stool is noted within the large bowel. IMPRESSION: No evidence of obstruction or significant ileus is seen. ACT 112: Negative or not required by law. Electronically signed by: Jey López M.D. 07/26/2022 3:09 PM
[2022-07-26] MEDS: DOCUSATE SODIUM/SENNA 50/8.6MG TAB PO SCH (20:47)
[2022-07-27] MEDS: POLYETHYLENE (MIRALAX) 17 GM PACK PO SCH ×5 (00:14→23:50)
[2022-07-27] MEDS: HYDROmorphone INJ 1 MG/ML SYRINGE IV PRN (05:32)
--- NOTE | 2022-07-27 07:45 | Orthopedic Progress Note ---
Date of Service July 27, 2022 Assessment & Plan (1) Lumbar disc herniation with radiculopathy: Plan: Patient stable postop day #2. We will continue with GI DVT prophylaxis as well as pain control. I am hesitant to send her home as last time she had back surgery she ended up having to come back to the hospital due to uncontrolled pain and an ileus. We will make sure her bowels have moved before we send her home. We will see how she is doing tomorrow and hopefully discharge her to home tomorrow. Admission and Anticipated Discharge Date Admission Date: July 24, 2022 Subjective Patient is seen bedside in room 378. She is doing well this morning. The pain in the leg is already improving. She has a lot of tightness and pain in the back when she changes position. She is not yet had a bowel movement. She feels that she is improving. She denies any other numbness, tingling, or paresthesias. Physical Exam Physical Exam: On exam she is alert and oriented. Her dressing is clean dry and intact. Her EMILIA drain is holding suction has had 25 cc out on the previous shift. Her abdomen soft nontender calves are supple nontender. Strength and sensation are both intact. Results & Data ([facility]) Vital Signs (Past 12 Hours) Vital Signs Temp Pulse Resp BP Pulse Ox O2 Del Method 07/27/22 07:34 Room Air 07/26/22 21:00 Room Air, CPAP 07/26/22 22:40 37.0 C 73 16 127/75 92 Room Air, CPAP
[2022-07-27] MEDS ORDERED: bisacodyL 10 MG SUPP PR ONE (08:26)
[2022-07-27] MEDS: oxyCODONE HCL IR 5 MG TAB (IMMEDIATE RELEASE) PO PRN ×4 (08:32→21:50)
[2022-07-27] MEDS: PREGABALIN 150 MG CAP PO SCH ×3 (08:32→21:50)
[2022-07-27] MEDS: INSULIN ASPART PER UNIT SC SCH ×3 (08:34→17:26)
[2022-07-27] MEDS: FLUTICASONE PROPIONATE NA SPR 16 GM BTL SCH (08:37)
[2022-07-27] MEDS ORDERED: CYANOCOBALAMIN 1000 MCG/ML VIAL IM SCH (09:00)
--- NOTE | 2022-07-27 09:17 | Hospitalist Progress Note ---
Date of Service July 27, 2022 Assessment & Plan (1) Lumbar disc herniation with radiculopathy: Plan: No red flag/cauda equina currently but acute worsening of chronic back pain with R sided weakness and radicular symptoms. Prior back surgery with Dr Ferguson years ago, has been getting injections for her back as outpatient , as much as allowed by insurance MRI Lumbar Spine with foraminal disc herniation L3-L4 on the right with associated facet hypertrophy. Per Dr Ferguson, also with obvious compression of the exiting L3 nerve root on the right. Ortho spine consulted-- Dr Ferguson POD# 2 s/p#1 removal of posterior instrumentation L4-L5. #2 exploration of fus ion L4-5. #3 lumbar decompression with bilateral medial facetectomies and foraminotomies as well as removal of foraminal disc herniation L3-L4. #4 posterior spinal fusion L3-L4. #5 placement posterior instrumentation L3-L5. #6 interbody fusion L3-L4. #7 placement of Spira 13 x 26 mm cage at L3-L4. #8 placement locally harvested morselized autograft and posterior gutters. Midline placement I factor model V toss interbody space and posterior gutters. with Dr Ferguson on 07/25 EBL 50cc WBC elevation 2nd to steroids given with surgery (prior elevation 07/24 after administration in ER as well, had been n/v prior to admit) Afebrile H/h 14.4/43 --> 12.3-35.8 -- acute blood loss from surgery but had been given additional IVF for dehydration as well, suspect aspect of dilutional Pain control, antiemetics prn -- back on as needed dosing Bowel regimen -- miralax TID/senna/docusate. Discussed suppository for this afternoon if no BM. Passing lots of gas, no abdominal pain. Patient agreeable, worried about getting cleaned up. Reassurance provided. Gutierrez removed, reported no issues with voiding since removal PT/OT consulted Planning on working on bowel regimen, dc for tomorrow (2) Lumbar stenosis with neurogenic claudication: (3) DM2 (diabetes mellitus, type 2): Plan: Normally on Semaglutide, already had her dose this week A1c 6.3 on check BSG AC/HS, ISS w/ decadron post-op BSGs acceptable Consider WILLIS/ARB in f/u for renal protection pending BPs w/ pain control or in follow up outpatient (4) Hyperlipidemia: Plan: Continue statin (5) Anxiety: Plan: Continue lyrica , increased for pain control as above Resumed ativan as needed given reported anxiety and to prevent withdrawal and very anxious about procedure, will need to inquire frequency she takes at home took x 1 dose morning 07/25, available as needed (6) Sleep apnea: Plan: HS CPAP ordered -- has home machine EKG with some lateral T wave inversions, but patient without symptoms chest pain/shortness of breath --> rec f/u PCP for continued monitoring/ref to cards outpatient. (7) Rheumatoid arthritis: Plan: Continue Rinvoq -- non formulary -- would place on hold during surgery, would hold to ensure good wound healing post-op may contribute to increased pain while off , see above Discussed with patient would f/u rheumatology about when to restart. she does endorse having to hold this during prior surgeries DVT prophylaxis -- SCDs, leslie hose chemical contraindicated in back surgery (8) Lumbar disc disease: (9) Urinary retention: Plan: likely 2nd to constipation bladder scanned as above, >800cc gutierrez placed, repeat urine cx for completeness --> no evidence for infection per protocol/voiding trial NO ISSUES VOIDING SINCE GUTIERREZ REMOVED (10) B12 deficiency: Plan: checked due to neuropathy -- on home med list but patient states she was only doing natural stuff per [employer] in [place] during covid discussed B12 borderline at 199 and given IM injection for today, continue PO tomorrow and at discharge patient wanting to discuss monthly injections with PCP Plan continued inpatient stay, planning home for tomorrow Admission and Anticipated Discharge Date Admission Date: July 24, 2022 Subjective Eval this morning, doing well. Some incisional pain, controlled with ordered medications. Slept well last night from 8p-5am. [place]. Passing lots of gas but no BM. Discussed suppository later today. She wants to ensure someone able to assist with wiping. Provided reasssurance. Leg numbness/tingling resolved. Discussed B12 and review outpatient medications, she was not compliant and was just taking some supplements from [facility] in [place] recommendations. Did discuss she has low normal B12 and would continue PO and consider monthly injections with PCP as patient desires. Encouraged ambulation, and if no BM this afteroon she is agreeable to suppository. No fever/chills, chest pain, shortnes of breath, nausea or vomiting. No issues with voiding since gutierrez removed. Review of Systems Review of Systems: All systems reviewed & are unremarkable except as noted in HPI & below Physical Exam Physical Exam: General: WD/WN obese female, appears MUCH more comfortable today, laughing, sitting up in recliner, NAD HEENT: head normocephalic, atraumatic, mmm, trachea midline without deviation Resp: CTAB, diminished in the bases, no wheezing/crackles, on room air CV: RRR, no m/r/g, no calf edema/tenderness to palpation, NO FURTHER tenderness/neuropathic pain reported medial R calf, GI: +BS, slight distention, increased from day prior, but NONTENDER, no guarding/rigidity ; no gutierrez MSK/Neuro: improvement in strength to b/l LE, equal, MUCH improved good stength dorsiflexion/plantar flexion EMILIA scant drainage dressing c/d/i SCD/leslie hose in place Psych: AOx3, cooperative and mood much improved Results & Data Results & Data ([facility]) Vital Signs (Past 12 Hours) Vital Signs Temp Pulse Resp BP Pulse Ox O2 Del Method 07/27/22 08:09 37.5 C 87 18 102/69 94 Room Air 07/27/22 07:34 Room Air 07/26/22 22:40 37.0 C 73 16 127/75 92 Room Air, CPAP Laboratory Results 07/27/22 07/27/22 07/26/22 Range/Units 12:21 08:30 20:39 POC Glucose 72 95 202 H (70-99) mg/dl 07/26/22 Range/Units 17:14 POC Glucose 124 H (70-99) mg/dl PG Care Time/CCT Total # of Minutes Spent Total Time Spent with Patient: Total time spent is greater than 50% in coordination of care (as documented) at patient's floor/unit and/or counseling patient: Coding Level of Care Code 17368 Subseq Hosp Care Lvl 3 Diagnoses Lumbar disc herniation with radiculopathy M51.16 Lumbar stenosis with neurogenic claudication M48.062 DM2 (diabetes mellitus, type 2) E11.9 Hyperlipidemia E78.5 Anxiety F41.9 Sleep apnea G47.30 Rheumatoid arthritis M06.9 Lumbar disc disease M51.9 Urinary retention R33.9 B12 deficiency E53.8
[2022-07-27] MEDS: traMADol HCL 50 MG TABLET PO PRN ×2 (11:19→16:21)
--- NOTE | 2022-07-27 13:43 | Pharmacy Report ---
Glycemic Ortho Sign Off Note - Date of Service July 27, 2022 - Scope Glycemic Pharmacist consulted for glycemic control and to write orders per [facility] inpatient glycemic control protocol. - Objective Accuchecks BSG (last 24hrs):: 07/26/22 07/26/22 07/27/22 17:14 20:39 08:30 POC Glucose 124 H 202 H 95 07/27/22 12:21 POC Glucose 72 HbA1c:: Hemoglobin A1c 6.3 % (4.5-5.6) H 07/24/22 07:44 - Assessment * Pt is maintained on oral antidiabeticagent[s]as anoutpatient with excellent control per recent A1c * Oral agents are not recommended for inpatient use d/t drug interactions, changing PO intake, and difficulty titrating for acute hyper/hypoglycemia. * Recommended regimen for inpatient use is SQ insulin * Low stress weight based insulin dosing appropriate since patient has minimal risk factors for insulin resistance (i.e. no steroids). * Minimal insulin needs over past 48 hours (2 units of Novolog given yesterday) * Appropriate to DC insulin and resume outpatient antidiabetic regimen at discharge * Goal is to maintain BSGs <200 mg/dl (ideally <150 mg/dl) to prevent post op complications - Plan For Inpatient Glycemic Control * Basal insulin * Not needed based on A1c, pre-op BSGs, and minimal risk factors for insulin resistance * Bolus insulin * Utilize low stress weight based NovoLog parameters per scale ACHS (no carb coverage) * Pharmacy has entered glycemic orders and is signing off of the glycemic consult. We will no longer be making adjustments to inpatient regimen. Please feel free to re-consult if needed. Thank you.
[2022-07-27] MEDS: DOCUSATE SODIUM/SENNA 50/8.6MG TAB PO SCH (21:50)
[2022-07-28] MEDS: traMADol HCL 50 MG TABLET PO PRN (00:28)
[2022-07-28] MEDS: oxyCODONE HCL IR 5 MG TAB (IMMEDIATE RELEASE) PO PRN ×2 (03:22→07:29)
[2022-07-28] MEDS: POLYETHYLENE (MIRALAX) 17 GM PACK PO SCH (05:06)
--- NOTE | 2022-07-28 08:37 | Hospitalist Progress Note ---
Date of Service July 28, 2022 Assessment & Plan (1) Lumbar disc herniation with radiculopathy: Plan: No red flag/cauda equina currently but acute worsening of chronic back pain with R sided weakness and radicular symptoms. Prior back surgery with Dr Ferguson years ago, has been getting injections for her back as outpatient , as much as allowed by insurance MRI Lumbar Spine with foraminal disc herniation L3-L4 on the right with associated facet hypertrophy. Per Dr Ferguson, also with obvious compression of the exiting L3 nerve root on the right. Ortho spine consulted-- Dr Ferguson POD# 3 s/p#1 removal of posterior instrumentation L4-L5. #2 exploration of fus ion L4-5. #3 lumbar decompression with bilateral medial facetectomies and foraminotomies as well as removal of foraminal disc herniation L3-L4. #4 posterior spinal fusion L3-L4. #5 placement posterior instrumentation L3-L5. #6 interbody fusion L3-L4. #7 placement of Spira 13 x 26 mm cage at L3-L4. #8 placement locally harvested morselized autograft and posterior gutters. Midline placement I factor model V toss interbody space and posterior gutters. with Dr Ferguson on 07/25 EBL 50cc WBC elevation 2nd to steroids given with surgery (prior elevation 07/24 after administration in ER as well, had been n/v prior to admit) Afebrile H/h 14.4/43 --> 12.3-35.8 -- acute blood loss from surgery but had been given additional IVF for dehydration as well, suspect aspect of dilutional Pain control, antiemetics prn -- back on as needed dosing Bowel regimen -- miralax TID/senna/docusate. got suppository 07/27, LARGE BM overnight. No abdominal pain Perez removed, reported no issues with voiding since removal PT/OT consulted -- rec return home Discussed with Dr Ferguson and going to continue the lyrica 150mg TID at discharge, pain control Also recommended continued B12 supplementation and discussion with PCP regarding injections as she voiced she would like to talk about in follow up (B12 199, given IM while inpatient, continued PO) (2) Lumbar stenosis with neurogenic claudication: (3) DM2 (diabetes mellitus, type 2): Plan: Normally on Semaglutide, already had her dose this week A1c 6.3 on check BSG AC/HS, ISS w/ decadron post-op BSGs acceptable, acuchecks discontinued F/U outpt, resume home meds at d/c (4) Hyperlipidemia: Plan: Continued statin (5) Anxiety: Plan: Continued lyrica , increased for pain control as above Resumed ativan as needed given reported anxiety and to prevent withdrawal and very anxious about procedure, will need to inquire frequency she takes at home took x 1 dose morning 07/25, available as needed (6) Sleep apnea: Plan: HS CPAP ordered -- has home machine EKG with some lateral T wave inversions, but patient without symptoms chest pain/shortness of breath --> rec f/u PCP for continued monitoring/ref to cards outpatient. (7) Rheumatoid arthritis: Plan: Continue Rinvoq -- non formulary -- would place on hold during surgery, would hold to ensure good wound healing post-op may contribute to increased pain while off , see above Discussed with patient would f/u rheumatology about when to restart. she does endorse having to hold this during prior surgeries, likely at least 1-2 weeks DVT prophylaxis -- SCDs, leslie hose chemical contraindicated in back surgery (8) Lumbar disc disease: (9) Urinary retention: Plan: likely 2nd to constipation bladder scanned as above, >800cc perez placed, repeat urine cx for completeness --> no evidence for infection per protocol/voiding trial NO ISSUES VOIDING SINCE PEREZ REMOVED (10) B12 deficiency: Plan: checked due to neuropathy -- on home med list but patient states she was only doing natural stuff per life extension in [place] during covid discussed B12 borderline at 199 and given IM injection for today, continued POat discharge patient wanting to discuss monthly injections with PCP Admission and Anticipated Discharge Date Admission Date: July 24, 2022 Subjective Evaluated this morning, at bedside. Large BM overnight, passing lots of gas. Pain currently controlled, ready and anxious for discharge. Reports feeling the best she has in years outside of incisional pain. Wanting to know about pain meds/tramadol and altering at home, also about if able to send rx for zofran as issues after d/c last time w/ nausea from pain meds. Discussed will relay to Dr Ferguson but to also keep up with a bowel regimen at discharge. Also discussed the Lyrica which was increased during inpatient stay and will check with Dr Ferguson about continuing this at discharge, at least for short term to ensure nerve pain stays controlled. Discussed continuing B12 supplementation at discharge and to f/u PCP but will also send in my progress note about the B12. No fever/chills, chest pain, shortness of breath, abdominal pain, nausea or vomiting. Questions/concerns addressed. Updated Dr Ferguson in [place] after encounter about requests for meds at discharge. Review of Systems Review of Systems: All systems reviewed & are unremarkable except as noted in HPI & below Physical Exam Physical Exam: General: WD/WN obese female, appears MUCH more comfortable today, laughing, sitting up in recliner, NAD HEENT: head normocephalic, atraumatic, mmm, trachea midline without deviation Resp: CTAB, diminished in the bases, no wheezing/crackles, on room air CV: RRR, no m/r/g, no calf edema/tenderness to palpation, NO FURTHER tenderness/neuropathic pain reported medial R calf, GI: +BS, nontender, no perez MSK/Neuro: improvement in strength to b/l LE, equal, MUCH improved, strength equal bilaterally, NVI, pulses palpable, calves nontender dressing to lumbar spine c/d/i leslie hose in place Psych: AOx3, cooperative and mood much improved Results & Data Results & Data ([facility]) Vital Signs (Past 12 Hours) Vital Signs Temp Pulse Resp BP Pulse Ox O2 Del Method 07/28/22 07:39 37.1 C 87 16 105/69 97 Room Air 07/27/22 21:00 Room Air 07/27/22 21:12 36.7 C 71 12 113/72 95 Room Air PG Care Time/CCT Total # of Minutes Spent Total Time Spent with Patient: Total time spent is greater than 50% in coordination of care (as documented) at patient's floor/unit and/or counseling patient: Coding Level of Care Code 60174 Subseq Hosp Care Lvl 3 Diagnoses Lumbar disc herniation with radiculopathy M51.16 Lumbar stenosis with neurogenic claudication M48.062 DM2 (diabetes mellitus, type 2) E11.9 Hyperlipidemia E78.5 Anxiety F41.9 Sleep apnea G47.30 Rheumatoid arthritis M06.9 Lumbar disc disease M51.9 Urinary retention R33.9 B12 deficiency E53.8
[2022-07-28] MEDS: PREGABALIN 150 MG CAP PO SCH (08:44)
[2022-07-28] MEDS ORDERED: CYANOCOBALAMIN (B-12) 500 MCG TABLET PO SCH (09:00)
--- NOTE | 2022-07-28 10:15 | Discharge Summary ---
Date of Service July 28, 2022 Admission HPI Per Admitting Provider Amada is a 61 year old female with a PMH significant for DM II, lumbar stenosis with neurogenic claudication S/P L4-L5 Spinal fusion with Dr. Ferguson in 2016, Hyperlipidemia, RA, who presented to the [facility] ED on 07/23/22 with a cheif complaint of uncontrolled low back pain. In the Ed the patient was found to be afebrile, hemodynamically stable, and stable on RA. Labs were remarkable for a leukocytosis of 13.85, left shift of 12.11. CT of the abdomen/pelvis without IV contrast showed "No acute infectious or inflammatory findings are identified in the abdomen or pelvis. There is marked bladder distention. Correlate clinically for evidence of outlet obstruction. Hepatomegaly and mild steatosis. The skeletal structures are osteopenic. There is postsurgical change from L4-L5 spinal fusion. No lytic or blastic lesions are seen.". MRI of the lumbar spine without contrast showed "Lumbosacral spondylosis and postoperative change as above. There is a large right lateral disc bulge, which contributes to subarticular stenosis and impinges on the exiting right L3 nerve root. There is no cord compromise of the central canal. No destructive bony process is seen.". The patient was given a total of 2 mg IV Dilaudid, 125 mg methylprednisone, and 1000 mg of IV tylenol but she was unable to get out of bed. The ED staff spoke to Dr. Ferguson who asked for medicine admission until he can further evaluate her for possible surgery. At the time of the exam the patient was lying in bed in no acute distress with her family sitting bedside. At the start of my exam the patient was noted to be on 3L NC, when asked she states that she is not on oxygen at baseline, she is still a daily smoker. She states that she has chronic back pain since her previous spinal fusion, the pain is normally in her lower back and will travel into her right buttocks. Starting yesterday she noted that the pain was exacerbated and now extends down into her right lateral thigh. She notes some tingling/numbness in that distribution as well. She denies any saddle anesthesia and loss of bowel or bladder function. She was able to get up this morning with the assistance of her cane and her but experienced severe pain when she sat on the toilet. She is currently scared to get up or move because the pain has been so severe. At baseline she normally uses a can due to a recent meniscal tear in her left knee. She denies any recent trauma and cannot think of an exact moment when the patient became exacerbated. Principal Diagnosis Foraminal disc herniation L3-L4 Discharge Data Allergies Allergy/AdvReac Type Severity Reaction Status Date / Time No Known Allergies Allergy Mild Verified 07/23/22 15:50 Consultations 07/23/22 13:54 ED Decision to Admit Stat 07/23/22 14:00 Consult Orthopedic Surgery Routine Procedures Performed Operation Date: 07/25/22 07:00 Actual Procedures p L3-L4 Decompression Fusion, Spinal Cord Monitoring(Not Applicable) - Kavon Ferguson DO s L4-L5 Hardware Removal,(Not Applicable) - Kavon Ferguson DO Ordered Studies 07/23/22 09:02 CT stones [CT abd pelvis wo con] Stat MRI Lumbar Spine [MR lumbar spine wo con] Stat 07/25/22 14:00 FL lumbar spine 2-3V Routine Hospital Course (1) Lumbar disc herniation with radiculopathy: Patient was admitted with severe radiculopathy motor deficit inability ambulate. Subsequently underwent emergent decompression fusion tolerated this well was taken to orthopedic for postoperative. Postop day 1 she was up and ambulating decreasing her narcotic utilization significantly. Her strength steadily improving. She was here for an progressed to postop day #2 and postoperative 3 bowels working well pain well controlled safely discharged home. Discharge orders instructions from the chart for further review. Total Time Total Time Spent Total Time Spent (In Minutes): 20 minutes Discharge Plan Discharge Items Patient Disposition: Home - Self-Care Reason For Visit: BACK PAIN Discharge Diagnosis: Lumbar disc condition with radiculopathy motor deficit Activity: As commented below Non-emergency contact: Primary Care Provider Call non-emergency contact if: you have any medication questions Follow-up/Referrals: Leslie Garcia MD [Primary Care Provider] - Diet: Regular Addtl Attending Provider Instructions: ACTIVITY RECOMMENDATIONS: SELF CARE INSTRUCTIONS AFTER THORACIC/LUMBAR FUSIONS 1. You may walk to your tolerance. It is good exercise for your legs and back. Expect some back and intermittent leg aches and pains. 2. You may perform "counter-top" level activities (make a sandwich, miguel angel with a project, etc.). 3. No bending or lifting of more than 10 pounds or back twisting of any nature (roll like a log when turning in bed). 4. You may ride in a car for 20-30 minutes at a time. No driving until after your first visit with your doctor. 5. Frequent changes of position and restricting sitting to 30 minutes at a time will help limit the amount of back spasms and stiffness you may experience. 6. You may discontinue the use of ambulatory aids (cane, crutches, etc.) once your strength and confidence allow. 7. You may machinist mate the shower and let water strike your incision when you arrive home at least once daily. Do not take a tub bath, sit in a hot tub or go into a swimming pool until after your first recheck in the office. SPECIAL CARE INSTRUCTIONS: VERY IMPORTANT TO READ AND REVIEW A. Your surgical incision has been closed with a cosmetic suture under the skin that will dissolve in about 6 weeks. In 14 days, you can use a pair of clean scissors and cut the suture that is left outside of the skin at the ends of your incision. 1. The small skin tapes can be removed 7 days after surgery if they have not fallen off by that point. 2. You may keep the wound open to air as much as possible to promote healing after post-op day number 5 unless told otherwise by your doctor. 3. If you think the wound looks like it is becoming infected (redness or worsening drainage) and/or you are experiencing fever, chill or worsening back pain and muscle spasms, contact the office so that we may evaluate you as soon as possible. B. Complications are uncommon, but please contact us if you have any signs or symptoms of: 1. wound infection (fever higher than 102.5 degrees F, redness, separation of wound, drainage, or increasing pain from the incision) 2. blood clots in legs (pain, swelling, redness and warmth in legs) 3. urinary tract infection (fever higher than 102.5 degrees F, burning upon urination or increased frequency of urination) 4. nerve problems (inability to walk on your toes or heels, numbness, loss of bowel or bladder control) 5. any other symptoms that concern you C. Please call the office at if you have any concerns or questions about your operation or recovery. D. No smoking! Smoking drastically decreases the chance of a solid fusion. E. Do not take any anti-inflammatory medications (Indocin, Advil, Motrin, Aspirin, Naprosyn, etc.) as these may inhibit the chance of a solid fusion. Tylenol is okay to take for pain. MANAGING PAIN AFTER SPINAL SURGERY 1. Narcotic medication is intended for short-term use and will be provided for surgical pain. Surgical pain usually lasts for a period of 4-6 weeks. Narcotic medication includes Percocet, Vicodin, Darvocet, Tylenol #3 or Lortab. 2. Longer-term pain is more appropriately treated with non-narcotic medication such as Tylenol ES. 3. Muscle spasm is not appropriately treated with narcotics. Muscle relaxers such as Soma, Flexeril or Skelaxin can be used along with Tylenol ES. 4. Remember that we all live with some "aches and pains". This is not unusual or uncommon after an injury or as we get older. a. Back pain is expected and may include muscle spasms for 4 to 6 weeks after surgery. The pain should gradually improve. If the pain worsens for no apparent reason, please contact the office. b. Intermittent leg pain may also be experienced and should not be concerned about unless it worsens for no apparent reason. If so, please contact the office. 5. We will provide appropriate medication within the normal guidelines of their prescribed use. We will also be very cautious and aware of potential abuse and extended duration of patients' medication needs. a. Pain medications are for your comfort and to assist with sleep and rest so that the tissue can heal. They are not provided in order to return to normal activity and should not be used through the day. To do so or worsening pain at night can result from ongoing tissue damage and development of tolerance to the prescribed medicine. 6. Please allow 2-3 days to process refills. Prescriptions will not be mailed but must be picked up at the office. FOLLOW UP VISIT: Keep your scheduled follow-up appointment. Any questions, please call the office at . Addtl [employer] Associate Provider Instructions: Your B12 was still found to be low. This can also contribute to neuropathy. We gave you an injection and you should continue daily pills at discharge, however you may want to discuss monthly injections with your PCP. You can also continue zinc found wounds/bruising/immune system. You should continue to hold your Rinvoq until you see Rheumatology or discuss with the office on when to resume this after surgery to ensure good wound healing. Pending Studies at Discharge: No Stand-Alone Forms: My [facility], Smoking Cessation Medications and DC Order Prescriptions: New tramadol 50 mg tablet 50 mg PO Q6H PRN (Reason: pain, moderate) Qty: 30 0RF oxycodone 5 mg tablet 5 mg PO Q6H PRN (Reason: pain, severe) Qty: 30 0RF ondansetron 4 mg tablet,disintegrating 4 mg PO Q6H PRN (Reason: nausea and vomiting) Qty: 30 0RF Continued Ozempic 1 mg/dose (4 mg/3 mL) pen injector 1 mg subcut WK 28 Days Qty: 21 1RF Rx Instructions: TAKE THIS MED EVERY THURSDAY. celecoxib [Celebrex] 200 mg capsule 200 mg PO DAILY PRN (Reason: Pain) albuterol sulfate 90 mcg/actuation HFA aerosol inhaler 2 puff inhalation QID PRN (Reason: Shortness Of Breath Or Wheezing) fluticasone propionate [Allergy Relief (fluticasone)] 50 mcg/actuation spray,suspension 2 spray intranasal DAILY Rx Instructions: administer into each nostril hydrocodone-acetaminophen 10-325 mg tablet 1 tab PO Q6H PRN (Reason: Pain) magnesium hydroxide [Milk of Magnesia] 400 mg/5 mL Suspension 30 ml PO DAILY PRN (Reason: Stomach Upset) lorazepam 1 mg Tablet 1 mg PO Q6H PRN (Reason: Anxiety) Label Comments: couple weeks Rinvoq 15 mg Tablet Extended Release 24 Hr 15 mg PO HS cyanocobalamin (vitamin B-12) [Vitamin B-12] 1,000 mcg Tablet 1,000 mcg PO QAM vitamin D3-vitamin K2 5,500-200 unit-mcg Tablet 1 tab PO QAM pregabalin [Lyrica] 100 mg Capsule 100 mg PO TID zinc acetate 50 mg (zinc) Capsule 50 mg PO DAILY Discharge Orders: Discharge Order (Routine); Ordered 07/28/22 Ordered By: Kavon Hutchinson/Other Patient Handouts: Managing Type 2 Diabetes Admission Data Admit Date/Time: 07/24/22 09:11 Attending Provider: Kavon Ferguson Admit Provider: Kavon Ferguson Primary Care Provider: Leslie Garcia Other Providers: Delta Minaya ; Kavon Ferguson ; Pastor Marie
[2022-07-28] MEDS: FLUTICASONE PROPIONATE NA SPR 16 GM BTL SCH (10:17)
== END 2022-07-28 12:19 | disposition home or self-care (01) | DRG 454 ==
LOC: ED 08:11 → 3N 08:11 → SUATTDRO 13:58 → 3N 16:51